=== PATIENT | female | born 1950 | race Caucasian/White ===

== ENCOUNTER 2017-04-09 12:23 | Inpatient (IN) | payer BC, MEDICARE ==
[2017-04-09] VITALS (12 sets, daily range): BP systolic 90–138; BP diastolic 41–63; PULSE 70–87; RESP 16–20; TEMP 97.2–98.3; O2SAT 95–100
[~2017-04-09] VITALS: Ht 165.1 cm; Wt 50.1 kg
[2017-04-09] MEDS: INSULIN ASPART SUPPLEMENTAL SCALE SQ SCH
[~2017-04-09 12:23] MED LIST: ALPR-138 PO; CO Q 10 PO; HERB LAX PO; LORT7.5T3 PO; OMEG1CAP53 PO; OYST500T77 PO; TAB-TAB PO
[2017-04-09] MEDS ORDERED: SODIUM CHLORIDE 0.9% FLUSH 10 ML FLUSH IVF PRN (12:45)
[2017-04-09] MEDS ORDERED: SODIUM CHLORID 0.9% 500 ML INJ 500 ML IV ONE (12:45)
--- NOTE | 2017-04-09 12:45 | PD ---
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 This is an intermittent episodic event was been happening over the past week. The patient did have a CAT scan of her head in November which was negative. The patient has been treating her tumor with holistic methods up until now. She 's never had any chemotherapy. She is coming by her daughter who states that during the episodic events the patient is alert and awake. Denies any fever denies any diarrhea. According to patient's daughter since been tolerating less by mouth recently and has lost 40 pounds over the past few months. 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) Neurologic: No Reproductive: No Respiratory: Yes (CANCER) ?: Not Tubal Ligation: Yes Past Surgical History Ear Surgery: Yes (RIGHT) Tonsillectomy: Yes Social History Alcohol Use: Yes (ONCE WEEK) Tobacco Use: Yes (1 PPD) Substance Use: No Allergies-Medications (Allergen,Severity, Reaction): Coded Allergies: Neomycin (Verified Allergy, Severe, SKIN BREAKDOWN, ITCHING, 04/09/17) Reported Meds & Prescriptions Reported Meds & Active Scripts Active Reported Temazepam 15 Mg Cap 15 Mg PO HS PRN Review of Systems Except as stated in HPI: all other systems reviewed are Neg Physical Exam Narrative GENERAL: [Well-developed, thin but in no obvious distress. SKIN: Focused skin assessment warm/dry. HEAD: Atraumatic. Normocephalic. EYES: Pupils equal and round. No scleral icterus. No injection or drainage. ENT: No nasal bleeding or discharge. Mucous membranes pink and moist. NECK: Trachea midline. No JVD. CARDIOVASCULAR: Regular rate and rhythm. No murmur appreciated. RESPIRATORY: No accessory muscle use. Clear to auscultation. Breath sounds equal bilaterally. GASTROINTESTINAL: Abdomen soft, non-tender, nondistended. Hepatic and splenic margins not palpable. MUSCULOSKELETAL: No obvious deformities. No clubbing. No cyanosis. No edema. NEUROLOGICAL: Awake and alert. Cranial nerves II through XII are grossly intact and nonfocal 5 out of 5 strength in all 4 extremities. Cerebellar testing negative. PSYCHIATRIC: Appropriate mood and affect; insight and judgment normal. Data Data Last Documented VS Vital Signs Date Time Temp Pulse Resp B/P Pulse Ox O2 Delivery O2 Flow Rate FiO2 04/09/17 13:03 96 Room Air 04/09/17 12:25 98.3 87 20 90/41 Orders Electrocardiogram (04/09/17 12:42) Ckmb (Isoenzyme) Profile (04/09/17 12:42) Complete Blood Count With Diff (04/09/17 12:42) Comprehensive Metabolic Panel (04/09/17 12:42) Magnesium (Mg) (04/09/17 12:42) Prothrombin Time / Inr (Pt) (04/09/17 12:42) Act Partial Throm Time (Ptt) (04/09/17 12:42) Troponin I (04/09/17 12:42) Ecg Monitoring (04/09/17 12:42) Iv Access Insert/Monitor (04/09/17 12:42) Oximetry (04/09/17 12:42) Oxygen Administration (04/09/17 12:42) Sodium Chloride 0.9% Flush (Ns Flush) (04/09/17 12:45) Sodium Chlorid 0.9% 500 Ml Inj (Ns 500 M (04/09/17 12:45) Chest, Pa & Lat (04/09/17 12:42) Ct Brain W/O Iv Contrast(Rout) (04/09/17 ) Phosphorus (Po4) (04/09/17 12:42) Ammonia (04/09/17 12:42) Resp Blood Gas Venous (04/09/17 ) Blood Gas Venous (Vbg) (04/09/17 12:50) Levetiracetam (Keppra) (04/09/17 13:30) Dexamethasone Inj (Decadron Inj) (04/09/17 13:30) Ct Thorax/ Chest W Iv Contrast (04/09/17 ) Consult Neurosurgery (04/09/17 ) Admit Order (Ed Use Only) (04/09/17 ) Labs Laboratory Tests Test 04/09/17 04/09/17 12:50 12:54 Blood Gas Puncture Site L AC Blood Gas Patient Temperature 37.0 Venous Blood pH 7.37 Venous Blood Partial Pressure 49 mmHg CO2 Venous Blood Partial Pressure 36 mmHg O2 Venous Blood HCO3 27 mmol/L Venous Blood Oxygen Saturation 62 % Venous Blood Oxygen Content 11.6 Vol % Venous Blood Base Excess 2.5 mmol/L Oxygen Delivery Device ROOM AIR Blood Gas Inspired Oxygen 21 % White Blood Count 4.6 TH/MM3 Red Blood Count 4.62 MIL/MM3 Hemoglobin 13.4 GM/DL Hematocrit 39.4 % Mean Corpuscular Volume 85.3 FL Mean Corpuscular Hemoglobin 28.9 PG Mean Corpuscular Hemoglobin 33.9 % Concent Red Cell Distribution Width 11.8 % Platelet Count 228 TH/MM3 Mean Platelet Volume 8.4 FL Neutrophils (%) (Auto) 63.0 % Lymphocytes (%) (Auto) 20.6 % Monocytes (%) (Auto) 9.0 % Eosinophils (%) (Auto) 6.4 % Basophils (%) (Auto) 1.0 % Neutrophils # (Auto) 3.0 TH/MM3 Lymphocytes # (Auto) 0.9 TH/MM3 Monocytes # (Auto) 0.4 TH/MM3 Eosinophils # (Auto) 0.3 TH/MM3 Basophils # (Auto) 0.0 TH/MM3 CBC Comment DIFF FINAL Differential Comment Prothrombin Time 10.7 SEC Prothromb Time International 1.0 RATIO Ratio Activated Partial 25.2 SEC Thromboplast Time Sodium Level 139 MEQ/L Potassium Level 4.3 MEQ/L Chloride Level 103 MEQ/L Carbon Dioxide Level 27.2 MEQ/L Anion Gap 9 MEQ/L Blood Urea Nitrogen 11 MG/DL Creatinine 0.66 MG/DL Estimat Glomerular Filtration 89 ML/MIN Rate Random Glucose 118 MG/DL Calcium Level 9.1 MG/DL Phosphorus Level 3.4 MG/DL Magnesium Level 1.8 MG/DL Total Bilirubin 0.4 MG/DL Aspartate Amino Transf 9 U/L (AST/SGOT) Alanine Aminotransferase 13 U/L (ALT/SGPT) Alkaline Phosphatase 68 U/L Ammonia 17 MCMOL/L Total Creatine Kinase 40 U/L Troponin I LESS THAN 0.02 NG/ML Total Protein 6.4 GM/DL Albumin 3.1 GM/DL [facility] Medical Decision Making Medical Screen Exam Complete: Yes Emergency Medical Condition: Yes Differential Diagnosis Brain lesion, electrolyte abnormality, hyponatremia, hypernatremia, hypokalemia , hyperkalemia, metastatic disease. Narrative Course Patient was roomed in the emergency department, high index suspicion for metastatic lesion into her head. CAT scan confirms: Last 24 hours Impressions Chest X-Ray 04/09/17 1242 Signed Impressions: Service Date/Time: Sunday, April 09, 2017 13:12 - CONCLUSION: Left upper lobe mass suspicious for malignancy with possible adenopathy within the mediastinum. Adair Ragland MD Head CT 04/09/17 0000 Signed Impressions: Service Date/Time: Sunday, April 09, 2017 13:08 - CONCLUSION: Right frontal lobe mass and MRI examination with and without contrast is recommended to further characterize. Adair Ragland MD Chest CT 04/09/17 0000 Signed Impressions: Service Date/Time: Sunday, April 09, 2017 14:59 - CONCLUSION: 1. There is a 4.1 x 6.9 x 5.2 cm mass in the medial aspect of the left upper lobe which abuts the upper mediastinum. There is extensive mediastinal, hilar and subcarinal adenopathy. Findings are highly suspicious for malignancy. The lesion would be readily amenable to CT-guided biopsy. Samuel Vásquez MD Abdomen/Pelvis CT 04/09/17 0000 Signed Impressions: Service Date/Time: Sunday, April 09, 2017 14:59 - CONCLUSION: 1. No findings to indicate metastatic disease to the abdomen or pelvis are identified. Samuel Vásquez MD Patient was discussed with Dr. Mendez given the findings of the possible subarachnoid hemorrhage and vasogenic edema the patient was given Decadron as well as Keppra. Had an extensive conversation with the family and the patient regarding her probable diagnosis of metastatic cancer and recommended that she be admitted to the hospital [place] [facility] [place] as well as oncology consultation. The patient is reluctant to treat other than holistic but she is willing to stay at least for the information/consultations. Patient was discussed with Dr. Stratton for ICU admission who is agreeable. He requests CAT scan of the chest and abdomen be ordered as well ordered, MRI orders have been placed, after discussion with Dr. Mendez. Diagnosis Primary Impression: Brain mass Additional Impressions: Brain edema Lung tumor Admitting Information Admitting Physician Requests: Admit Condition: Stable Joshua Diallo MD Apr 09, 2017 12:45
[2017-04-09 12:58] LABS: BLOOD GAS VENOUS BASE EXCESS 2.5 mmol/L (-2-2); BLOOD GAS VENOUS HCO3 27 mmol/L (22-26); BLOOD GAS VENOUS O2 CONTENT 11.6 Vol % (9.0-17.0); BLOOD GAS VENOUS O2 HGB SAT 62 % (70-76); BLOOD GAS VENOUS PCO2 49 mmHg (44-48); BLOOD GAS VENOUS PO2 36 mmHg (35-40); BLOOD GAS VENOUS pH 7.37 (7.360-7.400)
[2017-04-09 12:59] LABS: CRITICAL VALUE NO; DRAW SITE L AC; FIO2 21 %; OXYGEN DEVICE ROOM AIR; STAT YES
[2017-04-09] MEDS ORDERED: TEMA15CA PO (13:05)
[2017-04-09 13:06] LABS: EOSINOPHIL # 0.3 TH/MM3 (0-0.4); EOSINOPHIL % 6.4 % (0.0-4.0); HEMATOCRIT 39.4 % (35.0-46.0); HEMO FLAGS DIFF FINAL; LYMPH % 20.6 % (9.0-44.0); LYMPHOCYTE # 0.9 TH/MM3 (1.0-4.8); MEAN CELL VOLUME 85.3 FL (80.0-100.0); MEAN CORPUSCULAR HEMOGLOBIN 28.9 PG (27.0-34.0); MEAN CORPUSCULAR HGB CONC 33.9 % (32.0-36.0); PLATELET COUNT 228 TH/MM3 (150-450); RED BLOOD COUNT 4.62 MIL/MM3 (4.00-5.30); RED CELL DISTRIBUTION WIDTH 11.8 % (11.6-17.2); WHITE BLOOD COUNT 4.6 TH/MM3 (4.0-11.0)
[2017-04-09 13:08] LABS: CHLORIDE 103 MEQ/L (98-107); POTASSIUM 4.3 MEQ/L (3.5-5.1); SODIUM (NA) 139 MEQ/L (136-145)
[2017-04-09 13:12] LABS: ANION GAP 9 MEQ/L (5-15); BICARBONATE 27.2 MEQ/L (21.0-32.0); BLOOD UREA NITROGEN 11 MG/DL (7-18); MAGNESIUM 1.8 MG/DL (1.5-2.5)
[2017-04-09 13:13] LABS: APTT (PATIENT) 25.2 SEC (24.3-30.1); PROTHROMBIN TIME - PATIENT 10.7 SEC (9.8-11.6)
[2017-04-09 13:15] LABS: ALT (GPT) 13 U/L (10-53); AST (GOT) 9 U/L (15-37); GLOMERULAR FILTRATION RATE 89 ML/MIN (>89)
[2017-04-09 13:17] LABS: TOTAL BILIRUBIN ADULT 0.4 MG/DL (0.2-1.0)
[2017-04-09 13:18] LABS: ALKALINE PHOSPHATASE 68 U/L (45-117)
[2017-04-09 13:30] LABS: CREATINE KINASE 40 U/L (26-192)
[2017-04-09] MEDS ORDERED: DEXAMETHASONE SOD PHOS 20 MG/5 ML VIAL IV PUSH ONE (13:30)
[2017-04-09] MEDS ORDERED: levETIRAcetam 500 MG TAB PO ONE (13:30)
--- NOTE | 2017-04-09 13:44 | RADRPT ---
EXAM DATE/TIME: 04/09/2017 13:08 [facility] COMPARISON: No previous studies available for comparison. INDICATIONS : Altered mental status. RADIATION DOSE: 61.71 CTDIvol (mGy) MEDICAL HISTORY : None SURGICAL HISTORY : Tonsillectomy. Tubal ligation. ENCOUNTER: Initial ACUITY: 1 day PAIN SCALE: 0/10 LOCATION: cranial TECHNIQUE: Multiple contiguous axial images were obtained of the head. Using automated exposure control and adj ustment of the mA and/or kV according to patient size, radiation dose was kept as low as reasonably a chievable to obtain optimal diagnostic quality images. DICOM format image data is available electro nically for review and comparison. FINDINGS: There is an approximate 2 cm mass in right frontal lobe which is spontaneously dense towards the posterior aspect of it. This density may represent hemorrhage and there is surrounding vasogenic [place] suspicious for neoplastic process. There is no appreciable mass effect. There are no signs of acut e infarction. CONCLUSION: Right frontal lobe mass and MRI examination with and without contrast is recommended to nadya Ragland MD on April 09, 2017 at 13:41 Board Certified Radiologist. This report was verified electronically.
--- NOTE | 2017-04-09 13:45 | RADRPT ---
EXAM DATE/TIME: 04/09/2017 13:12 [facility] COMPARISON: No previous studies available for comparison. INDICATIONS : Short of breath and chest pain when inhaling. MEDICAL HISTORY : Left upper lung tumor SURGICAL HISTORY : None. ENCOUNTER: Initial ACUITY: 4 - 6 days PAIN SCORE: 2/10 LOCATION: Bilateral chest FINDINGS: There is a large approximately 6.2 cm left upper lobe mass which extends to the left hilum. There may be adenopathy in the AP window. There are atherosclerotic calcifications of the aorta due to chronic atherosclerotic disease. There are degenerative changes within the thoracic spine and the bony struc tures appear slightly osteopenic. CONCLUSION: Left upper lobe mass suspicious for malignancy with possible adenopathy within the mediastinum. Adair Ragland MD on April 09, 2017 at 13:43 Board Certified Radiologist. This report was verified electronically.
[2017-04-09] MEDS ORDERED: CHLORHEXIDINE GLUCONATE 2 % 1 PACK (2 CLOTHS) TOP PRN (14:45)
[2017-04-09] MEDS ORDERED: MISCELLANEOUS NURSING INFORMATION XX SCH (14:45)
[2017-04-09] MEDS ORDERED: ACETAMINOPHEN 325 MG TAB PO PRN (14:45)
[2017-04-09] MEDS ORDERED: SODIUM CHLORIDE 0.9% FLUSH 10 ML FLUSH IV FLUSH PRN (14:45)
[2017-04-09] MEDS ORDERED: BISACODYL 10 MG SUPP RECTAL PRN (15:00)
[2017-04-09] MEDS ORDERED: LACTULOSE SYRUP 20 GM/30 ML CUP PO PRN (15:00)
[2017-04-09] MEDS ORDERED: MAGNESIUM HYDROXIDE SUSP 30 ML CUP PO PRN (15:00)
[2017-04-09] MEDS ORDERED: SENNOSIDES 8.6 MG TAB PO PRN (15:00)
[2017-04-09] MEDS ORDERED: METOCLOPRAMIDE HCL 10 MG/2 ML VIAL IV PRN (15:00)
[2017-04-09] MEDS ORDERED: hydrALAZINE HCL 20 MG/ML VIAL IV PUSH PRN (15:00)
[2017-04-09] MEDS ORDERED: MORPHINE SULFATE 4 MG/ML INJ IV PRN (15:00)
[2017-04-09] MEDS ORDERED: ONDANSETRON HCL 4 MG/2 ML VIAL IV PRN (15:00)
[2017-04-09] MEDS ORDERED: oxyCODONE/ACETAMINOPHEN 5 MG/325 MG TAB PO PRN (15:00)
--- NOTE | 2017-04-09 15:32 | RADRPT ---
EXAM DATE/TIME: 04/09/2017 14:59 [facility] COMPARISON: CT BRAIN W/O CONTRAST, April 09, 2017, 13:08. INDICATIONS : Evaluate for metastatic disease; patient states known lung mass. IV CONTRAST: 100 cc IV ; Cumulative dose for multiple exams. RADIATION DOSE: The 6.42 CTDIvol (mGy) ; Combined studies - Thorax/Abdomen/Pelvis MEDICAL HISTORY : None SURGICAL HISTORY : Tubal ligation. Appendectomy. ENCOUNTER: Initial ACUITY: 1 day PAIN SCALE: 3/10 LOCATION: Bilateral chest TECHNIQUE: Volumetric scanning of the chest was performed. Using automated exposure control and adjustment of t he mA and/or kV according to patient size, radiation dose was kept as low as reasonably achievable to obtain optimal diagnostic quality images. DICOM format image data is available electronically for review and comparison. Follow-up recommendations for incidentally detected pulmonary nodules are based at a minimum on nodul e size and patient risk factors according to Fleischner Society Guidelines. FINDINGS: The examination demonstrates a 4.1 x 6.9 x 5.2 cm heterogeneous mass in the anterior aspect of the le ft upper lobe. This abuts the left side of the mediastinum. It abuts the pleural surface anteriorly. Findings are highly suspicious for malignancy. The examination also demonstrates extensive AP window, mediastinal, bilateral hilar and subcarinal adenopathy. The findings are highly suspicious for malig gladis. The heart is normal in size. There is no pleural effusion. The limited portions of upper abdomen visualized are unremarkable. The visualized osseous structures demonstrate degenerative changes but are otherwise intact. CONCLUSION: 1. There is a 4.1 x 6.9 x 5.2 cm mass in the medial aspect of the left upper lobe which abuts the upp er mediastinum. There is extensive mediastinal, hilar and subcarinal adenopathy. Findings are highly suspicious for malignancy. The lesion would be readily amenable to CT-guided biopsy. Samuel Vásquez MD on April 09, 2017 at 15:26 Board Certified Radiologist. This report was verified electronically.
--- NOTE | 2017-04-09 15:35 | RADRPT ---
EXAM DATE/TIME: 04/09/2017 14:59 [facility] COMPARISON: CT BRAIN W/O CONTRAST, April 09, 2017, 13:08. INDICATIONS : Evaluate for metastatic disease. IV CONTRAST: 100 cc Omnipaque 350 (iohexol) IV ; Cumulative dose for multiple exams. ORAL CONTRAST: No oral contrast ingested. RADIATION DOSE: 6.42 CTDIvol (mGy) ; Combined studies - Thorax/Abdomen/Pelvis MEDICAL HISTORY : None SURGICAL HISTORY : Tubal ligation. Appendectomy. ENCOUNTER: Initial ACUITY: 1 day PAIN SCALE: 3/10 LOCATION: Bilateral abdomen. TECHNIQUE: Volumetric scanning of the abdomen and pelvis was performed. Using automated exposure control and ad justment of the mA and/or kV according to patient size, radiation dose was kept as low as reasonably achievable to obtain optimal diagnostic quality images. DICOM format image data is available electro nically for review and comparison. FINDINGS: The appearance of the liver, spleen, pancreas, adrenal glands and kidneys is within normal limits. Th ere is no retroperitoneal lymphadenopathy. The abdominal aorta is normal in caliber. The visualized loops of small and large bowel in the upper abdomen are unremarkable. Imaging through the pelvis is provided. There is no significant adenopathy. No free fluid is seen. Th e reproductive organs are intact. Bone windowed imaging is provided. These demonstrate the visualized osseous structures to be intact. No destructive lesion is seen. CONCLUSION: 1. No findings to indicate metastatic disease to the abdomen or pelvis are identified. Samuel Vásquez MD on April 09, 2017 at 15:31 Board Certified Radiologist. This report was verified electronically.
[2017-04-09] MEDS ORDERED: IOHEXOL 350 MG/ML 10 ML VIAL (for RAD DIAG) IV ONE (15:57)
[2017-04-09] MEDS: SODIUM CHLOR 0.9% 1000 ML INJ 1,000 ML IV SCH ×2 (16:37→18:17)
[2017-04-09] MEDS: PANTOPRAZOLE SODIUM 40 MG VIAL IV SCH (16:37)
--- NOTE | 2017-04-09 17:02 | PD.ONC.PN ---
Objective Data Date Time Temp Pulse Resp B/P Pulse Ox O2 Delivery O2 Flow Rate FiO2 04/09/17 15:36 70 16 112/53 97 04/09/17 13:03 96 Room Air 04/09/17 13:03 96 Room Air 04/09/17 12:25 98.3 87 20 90/41 97 Result Diagram: 04/09/17 1254 04/09/17 1254 Laboratory Results Laboratory Tests Test 04/09/17 04/09/17 12:50 12:54 Blood Gas Puncture Site L AC Blood Gas Patient Temperature 37.0 Venous Blood pH 7.37 Venous Blood Partial Pressure 49 mmHg CO2 Venous Blood Partial Pressure 36 mmHg O2 Venous Blood HCO3 27 mmol/L Venous Blood Oxygen Saturation 62 % Venous Blood Oxygen Content 11.6 Vol % Venous Blood Base Excess 2.5 mmol/L Oxygen Delivery Device ROOM AIR Blood Gas Inspired Oxygen 21 % White Blood Count 4.6 TH/MM3 Red Blood Count 4.62 MIL/MM3 Hemoglobin 13.4 GM/DL Hematocrit 39.4 % Mean Corpuscular Volume 85.3 FL Mean Corpuscular Hemoglobin 28.9 PG Mean Corpuscular Hemoglobin 33.9 % Concent Red Cell Distribution Width 11.8 % Platelet Count 228 TH/MM3 Mean Platelet Volume 8.4 FL Neutrophils (%) (Auto) 63.0 % Lymphocytes (%) (Auto) 20.6 % Monocytes (%) (Auto) 9.0 % Eosinophils (%) (Auto) 6.4 % Basophils (%) (Auto) 1.0 % Neutrophils # (Auto) 3.0 TH/MM3 Lymphocytes # (Auto) 0.9 TH/MM3 Monocytes # (Auto) 0.4 TH/MM3 Eosinophils # (Auto) 0.3 TH/MM3 Basophils # (Auto) 0.0 TH/MM3 CBC Comment DIFF FINAL Differential Comment Prothrombin Time 10.7 SEC Prothromb Time International 1.0 RATIO Ratio Activated Partial 25.2 SEC Thromboplast Time Sodium Level 139 MEQ/L Potassium Level 4.3 MEQ/L Chloride Level 103 MEQ/L Carbon Dioxide Level 27.2 MEQ/L Anion Gap 9 MEQ/L Blood Urea Nitrogen 11 MG/DL Creatinine 0.66 MG/DL Estimat Glomerular Filtration 89 ML/MIN Rate Random Glucose 118 MG/DL Calcium Level 9.1 MG/DL Phosphorus Level 3.4 MG/DL Magnesium Level 1.8 MG/DL Total Bilirubin 0.4 MG/DL Aspartate Amino Transf 9 U/L (AST/SGOT) Alanine Aminotransferase 13 U/L (ALT/SGPT) Alkaline Phosphatase 68 U/L Ammonia 17 MCMOL/L Total Creatine Kinase 40 U/L Troponin I LESS THAN 0.02 NG/ML Total Protein 6.4 GM/DL Albumin 3.1 GM/DL Imaging Studies Last 24 hours Impressions Chest X-Ray 04/09/17 1242 Signed Impressions: Service Date/Time: Sunday, April 09, 2017 13:12 - CONCLUSION: Left upper lobe mass suspicious for malignancy with possible adenopathy within the mediastinum. Adair Ragland MD Head CT 04/09/17 0000 Signed Impressions: Service Date/Time: Sunday, April 09, 2017 13:08 - CONCLUSION: Right frontal lobe mass and MRI examination with and without contrast is recommended to further characterize. Adair Ragland MD Chest CT 04/09/17 0000 Signed Impressions: Service Date/Time: Sunday, April 09, 2017 14:59 - CONCLUSION: 1. There is a 4.1 x 6.9 x 5.2 cm mass in the medial aspect of the left upper lobe which abuts the upper mediastinum. There is extensive mediastinal, hilar and subcarinal adenopathy. Findings are highly suspicious for malignancy. The lesion would be readily amenable to CT-guided biopsy. Samuel Vásquez MD Abdomen/Pelvis CT 04/09/17 0000 Signed Impressions: Service Date/Time: Sunday, April 09, 2017 14:59 - CONCLUSION: 1. No findings to indicate metastatic disease to the abdomen or pelvis are identified. Samuel Vásquez MD Administered Medications Medications (Trade) Dose Ordered Sig/Michelle Route PRN Reason Start Time Stop Time Status Last Admin Dose Admin Sodium Chloride (NS 1000 ml Inj) 1,000 ml @ 84 mls/hr [id number] IV 04/09/17 14:34 04/09/17 16:37 Pantoprazole Sodium (Protonix Inj) 40 mg DAILY IV 04/09/17 15:00 04/09/17 16:37 Get Hanson MD Apr 09, 2017 17:02
--- NOTE | 2017-04-09 18:06 | HHI.HP ---
HPI Service Critical Care Medicine Primary Care Physician Maria De Jesus Saavedra M.D. Admission Diagnosis Altered mental status, Seizure like activity, Brain Edema Diagnosis: Chief Complaint: right upper extremity tremors Travel History International Travel<30 Days: No Contact w/Intl Traveler <30 Da: No Traveled to Known Affected Are: No History of Present Illness HPI Patient 66-year-old female with a history of left-sided chest tumor apparently for the past 3 years presents emergency department for evaluation of altered mental status right upper extremity tremors preference for right-sided gaze as well as shaking all over. This is an intermittent episodic event was been happening over the past week. Patient states she had biopsy of the lymph nodes done in November 2015 for her lung mass and was found to have non-small cell lung cancer the reports of which she has at home. The patient did have a CAT scan of her head in November which was negative. The patient has been treating her tumor with holistic methods up until now. She 's never had any chemotherapy. She is coming by her daughter who states that during the episodic events the patient is alert and awake. Denies any fever denies any diarrhea. According to patient's daughter since been tolerating less by mouth recently and has lost 40 pounds over the past few months. Patient was evaluated in the ER at [place], head CT there revealed left frontal mass with vasogenic edema. A chest x-ray revealed left upper lobe lung mass as well as suspicious for malignancy. Patient received Decadron 10 mg IV, neurosurgery was contacted and requested transfer to the main hospital. Patient was accepted for admission by critical care medicine service. I ordered a CT chest with IV contrast prior to her transfer with plans of getting an MRI brain following her arrival. When I evaluated the patient she was laying in bed in no acute distress. History was obtained by reviewing records, discussion with patient as well as ER physician and nursing staff. 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) Neurologic: No Reproductive: No Respiratory: Yes (CANCER) ?: Not Tubal Ligation: Yes Past Surgical History Ear Surgery: Yes (RIGHT) Tonsillectomy: Yes Social History Alcohol Use: Yes (ONCE WEEK) Tobacco Use: Yes (1 PPD) Substance Use: No Allergies-Medications Allergies-Medications (Allergen,Severity, Reaction): Coded Allergies: Neomycin (Verified Allergy, Severe, SKIN BREAKDOWN, ITCHING, 04/09/17) Reported Meds & Prescriptions Reported Meds & Active Scripts Active Reported Temazepam 15 Mg Cap 15 Mg PO HS PRN ROS Review of Systems Except as stated in HPI: all other systems reviewed are Neg Physical Exam Physical Exam Narrative GENERAL: Well-developed, thin but in no obvious distress. SKIN: warm/dry. HEAD: Atraumatic. Normocephalic. EYES: Pupils equal and round. No scleral icterus. No injection or drainage. ENT: No nasal bleeding or discharge. Mucous membranes pink and moist. NECK: Trachea midline. No JVD. CARDIOVASCULAR: Regular rate and rhythm. No murmur appreciated. RESPIRATORY: No accessory muscle use. Clear to auscultation. Breath sounds equal bilaterally. GASTROINTESTINAL: Abdomen soft, non-tender, nondistended. Hepatic and splenic margins not palpable. MUSCULOSKELETAL: No obvious deformities. No clubbing. No cyanosis. No edema. NEUROLOGICAL: Awake and alert. Cranial nerves II through XII are grossly intact and nonfocal 5 out of 5 strength in all 4 extremities. Cerebellar testing negative. PSYCHIATRIC: Appropriate mood and affect; insight and judgment normal. Physical Exam Vital Signs Vital Signs Date Time Temp Pulse Resp B/P Pulse Ox O2 Delivery O2 Flow Rate FiO2 04/09/17 16:50 74 15 138/53 98 04/09/17 15:36 70 16 112/53 97 04/09/17 13:03 96 Room Air 04/09/17 13:03 96 Room Air 04/09/17 12:25 98.3 87 20 90/41 97 Laboratory Laboratory Tests Test 04/09/17 04/09/17 12:50 12:54 Blood Gas Puncture Site L AC Blood Gas Patient Temperature 37.0 Venous Blood pH 7.37 Venous Blood Partial Pressure 49 CO2 Venous Blood Partial Pressure 36 O2 Venous Blood HCO3 27 Venous Blood Oxygen Saturation 62 Venous Blood Oxygen Content 11.6 Venous Blood Base Excess 2.5 Oxygen Delivery Device ROOM AIR Blood Gas Inspired Oxygen 21 White Blood Count 4.6 Red Blood Count 4.62 Hemoglobin 13.4 Hematocrit 39.4 Mean Corpuscular Volume 85.3 Mean Corpuscular Hemoglobin 28.9 Mean Corpuscular Hemoglobin 33.9 Concent Red Cell Distribution Width 11.8 Platelet Count 228 Mean Platelet Volume 8.4 Neutrophils (%) (Auto) 63.0 Lymphocytes (%) (Auto) 20.6 Monocytes (%) (Auto) 9.0 Eosinophils (%) (Auto) 6.4 Basophils (%) (Auto) 1.0 Neutrophils # (Auto) 3.0 Lymphocytes # (Auto) 0.9 Monocytes # (Auto) 0.4 Eosinophils # (Auto) 0.3 Basophils # (Auto) 0.0 CBC Comment DIFF FINAL Differential Comment Prothrombin Time 10.7 Prothromb Time International 1.0 Ratio Activated Partial 25.2 Thromboplast Time Sodium Level 139 Potassium Level 4.3 Chloride Level 103 Carbon Dioxide Level 27.2 Anion Gap 9 Blood Urea Nitrogen 11 Creatinine 0.66 Estimat Glomerular Filtration 89 Rate Random Glucose 118 Calcium Level 9.1 Phosphorus Level 3.4 Magnesium Level 1.8 Total Bilirubin 0.4 Aspartate Amino Transf 9 (AST/SGOT) Alanine Aminotransferase 13 (ALT/SGPT) Alkaline Phosphatase 68 Ammonia 17 Total Creatine Kinase 40 Troponin I LESS THAN 0.02 Total Protein 6.4 Albumin 3.1 Result Diagram: 04/09/17 1254 04/09/17 1254 Assessment and Plan Assessment and Plan 66 year-old female with: Right frontal lobe mass with vasogenic edema Left upper lobe lung cancer Plan: Neuro: Continue Decadron, Keppra. Neurosurgery consulted and d/w Dr. Mendez who will be evaluating patient. Awaiting MRI brain. Cardiovascular: IV hydration, watch for hypotension. Pulmonary: Supplemental O2 as needed. Pulmonary consult requested for lung cancer GI/liver: Advance by mouth as tolerated. Renal/: IV hydration, monitor and replete elect lites, follow BUN/creatinine. ID: No indication for antibiotics at this time. Endocrine: SSI for glycemic control if needed. Heme: Follow CBC. Oncology consulted to assist with management for lung cancer with probable metastatic disease to brain. Prophylaxis: PPI/SCDs. Subcutaneous heparin held in view of intracerebral mass. I have asked patient to contact her to get her reports regarding lung cancer workup done at [facility] including biopsy reports. Discussed with Dr. Mendez Patient is awake and alert at this time. We will consult hospitalist for further medical management starting tomorrow. Breezy Biswas MD Apr 09, 2017 18:06
[2017-04-09] MEDS: DEXAMETHASONE SOD PHOS 4 MG/ML VIAL IV PUSH SCH (18:22)
[2017-04-09] MEDS ORDERED: GLUCAGON 1 MG/ML VIAL IM/SQ PRN (18:45)
[2017-04-09] MEDS ORDERED: DEXTROSE 50% IN WATER 50 ML VIAL(D50) IV PRN (18:45)
[2017-04-09] MEDS: SODIUM CHLORIDE 0.9% FLUSH 10 ML FLUSH IV FLUSH SCH (19:57)
[2017-04-09] MEDS ORDERED: ZOLPIDEM TARTRATE 5 MG TAB PO PRN (21:00)
[2017-04-09] MEDS: DOCUSATE SODIUM 50 MG/SENNA 8.6 MG TAB PO SCH (21:00)
[2017-04-09] MEDS: levETIRAcetam INJ 500 MG in SODIUM CHLORIDE 0.9% INJ 100 ML IV SCH (21:05)
[2017-04-09] MEDS ORDERED: GADODIAMIDE PF 287 MG/ML 5 ML VIAL (for RAD MRI) IV ONE (22:56)
--- NOTE | 2017-04-09 23:18 | RADRPT ---
EXAM DATE/TIME: 04/09/2017 22:11 [facility] COMPARISON: CT BRAIN W/O CONTRAST, April 09, 2017, 13:08. INDICATIONS : Mass. CONTRAST: 9 cc Omniscan (gadodiamide) IV MEDICAL HISTORY : Carcinoma, lung. SURGICAL HISTORY : Appendectomy. Tonsillectomy. Right knee. Ear. ENCOUNTER: Subsequent ACUITY: 1 week PAIN SCORE: 0/10 LOCATION: cranial TECHNIQUE: Multiplanar, multisequence MRI of the brain was performed both prior to and following the administrat ion of paramagnetic contrast. FINDINGS: No evidence for acute infarction on diffusion weighted imaging. In the right frontal lobe superiorly a mass is identified with marked surrounding vasogenic edema and a hematocrit level suspected with bl ooming artifact on gradient echo images. It measures 2.1 x 1.9 cm in AP and transverse dimension on a xial T2 image 20. There is peripheral enhancement of this lesion. Also noted is a similar but smaller lesion with fluid fluid level adjacent to this on image 18 in the right frontal region with mild per ipheral enhancement measuring 6.8 x 5.9 mm on axial image 131 of series 14. There is surrounding sandie a. In the left post central region a similar lesion with a small amount of surrounding edema is noted measuring 6.6 mm in maximal transverse dimension on axial image 18 of series 10. There is mild perip heral enhancement. There is patchy periventricular white matter disease and remote lacunar infarcts i n the basal ganglia. There are secretions in the bilateral mastoid air cells. No additional areas of abnormal enhancement are identified. CONCLUSION: 1. There are 3 rim-enhancing masses identified peripheral enhancement, 2 of which demonstrate hematoc rit levels. Metastatic disease would be the leading consideration. 2. Patchy white matter disease most likely on the basis of chronic microvascular ischemic disease. 3. Mastoid fluid bilaterally. Khang Segal MD on April 09, 2017 at 23:11 Board Certified Radiologist. This report was verified electronically.
[2017-04-10] VITALS (14 sets, daily range): BP systolic 92–130; BP diastolic 48–58; PULSE 63–86; RESP 16–30; TEMP 97.3–98.1; O2SAT 93–98
[2017-04-10] MEDS: DEXAMETHASONE SOD PHOS 4 MG/ML VIAL IV PUSH SCH ×2 (00:17→06:00)
[2017-04-10] MEDS: TEMAZEPAM 15 MG CAP PO PRN (00:42)
[2017-04-10] MEDS: CHLORHEXIDINE GLUCONATE 2 % 1 PACK (2 CLOTHS) TOP SCH (03:22)
[2017-04-10] MEDS: INSULIN ASPART SUPPLEMENTAL SCALE SQ SCH ×4 (06:26→20:19)
[2017-04-10 08:41] LABS: AUTOMATED NEUTROPHIL # 4.6 TH/MM3 (1.8-7.7); BASOPHIL % 0.3 % (0.0-2.0); EOSINOPHIL % 0.1 % (0.0-4.0); HEMATOCRIT 41.5 % (35.0-46.0); HEMO FLAGS DIFF FINAL; LYMPH % 10.3 % (9.0-44.0); LYMPHOCYTE # 0.5 TH/MM3 (1.0-4.8); MEAN CORPUSCULAR HEMOGLOBIN 29.7 PG (27.0-34.0); MEAN CORPUSCULAR HGB CONC 34.6 % (32.0-36.0); MONO % 2.1 % (0.0-8.0); NEUT % 87.2 % (16.0-70.0); PLATELET COUNT 243 TH/MM3 (150-450); RED BLOOD COUNT 4.82 MIL/MM3 (4.00-5.30); RED CELL DISTRIBUTION WIDTH 12.7 % (11.6-17.2); WHITE BLOOD COUNT 5.3 TH/MM3 (4.0-11.0)
[2017-04-10 08:59] LABS: ANION GAP 7 MEQ/L (5-15); BICARBONATE 26.2 MEQ/L (21.0-32.0); BLOOD UREA NITROGEN 14 MG/DL (7-18); CHLORIDE 106 MEQ/L (98-107); GLOMERULAR FILTRATION RATE 88 ML/MIN (>89); POTASSIUM 3.7 MEQ/L (3.5-5.1); SODIUM (NA) 139 MEQ/L (136-145)
[2017-04-10 09:00] LABS: ALT (GPT) 14 U/L (10-53); AST (GOT) 12 U/L (15-37)
[2017-04-10] MEDS: PANTOPRAZOLE SODIUM 40 MG VIAL IV SCH ×2 (09:00→09:55)
[2017-04-10 09:02] LABS: ALKALINE PHOSPHATASE 70 U/L (45-117); TOTAL BILIRUBIN ADULT 0.3 MG/DL (0.2-1.0)
[2017-04-10] MEDS: SODIUM CHLORIDE 0.9% FLUSH 10 ML FLUSH IV FLUSH SCH ×2 (09:55→20:20)
[2017-04-10] MEDS: DOCUSATE SODIUM 50 MG/SENNA 8.6 MG TAB PO SCH ×2 (09:55→20:20)
[2017-04-10] MEDS: levETIRAcetam INJ 500 MG in SODIUM CHLORIDE 0.9% INJ 100 ML IV SCH (09:55)
--- NOTE | 2017-04-10 10:31 | HHI.PR ---
Subjective Remarks Follow-up lung mass, brain mass. Patient has no complaints at this time. Denies headache, vision change, dyspnea, chest pain. Reports mild nonproductive cough intermittently. Objective Vitals Vital Signs Date Time Temp Pulse Resp B/P Pulse Ox O2 Delivery O2 Flow Rate FiO2 04/10/17 10:00 86 04/10/17 08:00 70 04/10/17 08:00 97.6 70 30 92/55 95 04/10/17 07:01 98 04/10/17 07:00 93 Room Air 04/10/17 07:00 70 04/10/17 06:00 70 04/10/17 04:00 97.4 70 16 110/56 93 04/10/17 04:00 72 04/10/17 00:00 97.7 78 16 101/48 94 04/10/17 00:00 74 04/09/17 23:00 70 04/09/17 22:00 80 04/09/17 20:55 96 21 04/09/17 20:00 72 04/09/17 20:00 98.1 70 16 113/54 98 04/09/17 19:00 Room Air 04/09/17 18:00 74 04/09/17 16:50 74 15 138/53 98 04/09/17 16:30 71 04/09/17 16:00 71 04/09/17 16:00 97.2 72 16 124/63 100 04/09/17 15:36 70 16 112/53 97 04/09/17 13:03 96 Room Air 04/09/17 13:03 96 Room Air 04/09/17 12:50 95 21 04/09/17 12:25 98.3 87 20 90/41 97 I/O 04/09/17 04/09/17 04/09/17 04/10/17 04/10/17 04/10/17 06:59 14:59 22:59 06:59 14:59 22:59 Intake Total 864 ml 848 ml Balance 864 ml 848 ml Intake Oral 360 ml 360 ml IV Total 504 ml 488 ml # Voids 2 2 # Bowel Movements 0 0 Result Diagram: 04/10/17 0809 04/10/17 0809 Imaging Last Impressions Chest X-Ray 04/09/17 1242 Signed Impressions: Service Date/Time: Sunday, April 09, 2017 13:12 - CONCLUSION: Left upper lobe mass suspicious for malignancy with possible adenopathy within the mediastinum. Adair Ragland MD Head CT 04/09/17 Signed Impressions: Service Date/Time: Sunday, April 09, 2017 13:08 - CONCLUSION: Right frontal lobe mass and MRI examination with and without contrast is recommended to further characterize. Adair Ragland MD Chest CT 04/09/17 Signed Impressions: Service Date/Time: Sunday, April 09, 2017 14:59 - CONCLUSION: 1. There is a 4.1 x 6.9 x 5.2 cm mass in the medial aspect of the left upper lobe which abuts the upper mediastinum. There is extensive mediastinal, hilar and subcarinal adenopathy. Findings are highly suspicious for malignancy. The lesion would be readily amenable to CT-guided biopsy. Samuel Vásquez MD Brain MRI 04/09/17 Signed Impressions: Service Date/Time: Sunday, April 09, 2017 22:11 - CONCLUSION: 1. There are 3 rim-enhancing masses identified peripheral enhancement, 2 of which demonstrate hematocrit levels. Metastatic disease would be the leading consideration. 2. Patchy white matter disease most likely on the basis of chronic microvascular ischemic disease. 3. Mastoid fluid bilaterally. Khang Segal MD Abdomen/Pelvis CT 04/09/17 Signed Impressions: Service Date/Time: Sunday, April 09, 2017 14:59 - CONCLUSION: 1. No findings to indicate metastatic disease to the abdomen or pelvis are identified. Samuel Vásquez MD Objective Remarks General: Thin female in no acute distress. Heart: Regular rate and rhythm. No murmur. Lungs: Clear to auscultation bilaterally. No wheezes, rales, or rhonchi. Breathing is nonlabored. Abdomen: Soft, nontender, nondistended. Extremities: No lower extremity edema. Psych: Alert and oriented. Procedures None Urinary Catheter: No Vascular Central Line Catheter: No A/P Problem List: (1) Lung tumor ICD Code: D49.1 Status: Acute (2) Brain mass ICD Code: G93.9 Status: Acute Assessment and Plan 1. Right frontal lobe mass: Multiple masses seen on MRI. Appreciate neurosurgery recommendations. 2. Lung cancer, left upper lobe: Oncology consultation is pending. Pulmonology consultation pending. 3. DVT prophylaxis: SCDs. 4. GI prophylaxis: PPI. Transfer to medical/surgical floor. Discussed with Dr. Mendez. Pan Ocampo MD Apr 10, 2017 10:31
--- NOTE | 2017-04-10 10:37 | EKG ---
Date Performed: 04/09/2017 Time Performed: 12:58:57 PTAGE: 66 years EKG: Sinus rhythm POSSIBLE RIGHT VENTRICULAR CONDUCTION DELAY BORDERLINE ECG PREVIOUS TRACING : 12/20/2007 15.08 DOCTOR: Kelby Bland Interpretating Date/Time 04/10/2017 10:35:39
[2017-04-10] MEDS: DEXAMETHASONE 4 MG TAB PO SCH ×3 (12:59→23:14)
--- NOTE | 2017-04-10 14:53 | MB ---
cc: STEPHANIE YOUNG ROHIT K. M.D. LEE, LESLIE M. M.D. DATE OF CONSULTATION: 04/10/2017. REASON FOR CONSULTATION: Brain masses. HISTORY OF PRESENT ILLNESS: This is a 66-year-old right-handed female who presented to the emergency room in [place] last evening with complaints of confusion and head shaking. She also relates for the past month or so she has been running into objects on the left side with some unsteadiness as noted by her daughter. Over the last several days, she has had transient head spasms and shaking. A week ago she also had some transient spasms and contractions in the right hand and arm. CT scan of the head was obtained, which revealed a right frontal lobe mass with surrounding edema. She was started on Keppra and also Decadron, and since then she is feeling much better and her mentation has cleared up also per her family. Subsequent workup included an MRI scan of the brain which reveals right posterior frontal medial 2.4 cm partially enhancing mass with surrounding vasogenic edema. There is also a smaller mass adjacent to this less than a centimeter and a left frontoparietal lobe less than centimeter mass also with some enhancement and edema. Overall three brain masses are noted. CT scan of the chest reveals an approximately 7 cm x 5 cm mass in the left upper lobe along with extensive adenopathy. She was diagnosed with [id number] lung cancer a year and a half ago but elected on nonconventional treatment and did not seek chemotherapy or radiation treatment. She says she sought medical care with an oncologist at [facility] as well as in [place]. PAST MEDICAL HISTORY: 1. Diw-rnbme-[id number] lung cancer diagnosed a year and a half ago. 2. Depression. 3. Tubal ligation. 4. Disc protrusions in the neck. 5. Tonsillectomy. MEDICATIONS: 1. Temazepam 50 milligrams at bedtime PRN. ALLERGIES: NEOMYCIN. SOCIAL HISTORY: She is and her and daughter are here with her. She drinks alcohol on an occasional basis. She smokes a pack of cigarettes a day. REVIEW OF SYSTEMS: She denies any headache or nausea or vomiting or double vision or blurred vision. No chest pain or shortness of breath. No abdominal pain. No hemoptysis. No incontinence. She has had unsteadiness for the past month or so with running into objects on the left side. She had one episode a week ago of transient arm stiffness and contraction that lasted three days. Short episodes every day of head spasms and twitching. No history of easy bleeding or bruising. No fevers or chills. LABORATORY FINDINGS: White blood cell count 5.3, hemoglobin 14.3, platelet count 243,000. PT 10.7, INR 1.0, PTT 25.2. Sodium 139, potassium 3.7, BUN 14, creatinine 0.67, glucose is 135. EXAMINATION: VITAL SIGNS: Temperature 97.4, pulse is 70, respiratory rate 16, blood pressure 110/56, oxygen saturation 93% on room air. HEAD: Normocephalic, atraumatic. NECK: Neck is supple. CHEST: Clear bilaterally. HEART: Regular rate and rhythm, normal S1-S2. ABDOMEN: Abdomen soft and nontender. Positive bowel sounds. EXTREMITIES: No cyanosis or edema. NEUROLOGICAL EXAMINATION: She is awake, alert. Pupils equal are equal and reactive. Extraocular muscles intact. Face is symmetric. Tongue is midline. Visual marinao are full. Motor strength in the upper and lower extremities is 5/5. Positive Babinski bilaterally. Light touch sensation intact. Speech is fluent. IMPRESSION: 1. Multiple brain masses, the largest one approximately 2.4 cm in the posterior frontal and medial aspect with surrounding edema. There are smaller sub-centimeter lesions in the right frontal and left parietal areas also noted. These findings are very consistent with a metastasis given her history of non-small cell lung cancer. 2. History of left upper lobe large lung mass, non-small cell lung cancer diagnosed a year and a half ago and did not follow through with any conventional radiation of chemotherapy. 3. Possible focal seizures related to the brain masses. PLAN: 1. The patient will be continued on a Decadron for the cerebral edema and Keppra for seizure prophylaxis. 2. Sequential compressive devices will be used for DVT prophylaxis along with the Protonix for gastrointestinal stress ulcer prophylaxis. 3. Her diet and activity status can be increased as tolerated. 4. Regarding the brain masses, we discussed the option of stereotactic radiosurgery as well as whole brain radiation therapy. The more aggressive option of surgical resection of the larger brain mass with subsequent radiation therapy to the other masses and the resection bed will also discussed per the family and daughter's request. She is also encouraged to discuss her options with her oncologist who has been consulted. They had multiple questions, which were all answered to their satisfaction. MD BRENDA Prasad/PAKO /10:29 AM /2:42 PM
--- NOTE | 2017-04-10 16:46 | MB ---
cc: XU MCNAIR M.D. Corrected Copy: 04/13/17 DATE OF CONSULTATION: 04/10/2017. REASON FOR CONSULTATION: Lung cancer with brain metastasis. HISTORY OF PRESENT ILLNESS: Mrs. Roche is 66 years of age. She has a left upper lobe lung mass and was diagnosed with [id number] lung cancer about a year and a half ago with non-conventional therapy. The patient presented today at the [facility] with confusion and shakiness and question of seizure activity. CT of the brain revealed multiple lung masses suggestive of metastatic disease. CT scan of the chest revealed a left upper lobe lung mass 7x5 cm with extensive adenopathy. The patient was given Decadron with significant improvement and she was started on Keppra for possible seizure activity. She is alert and oriented and has no shortness of breath, fever, chills, cough, expectoration. PHYSICAL EXAMINATION: GENERAL: On exam, the patient is alert. VITAL SIGNS: Temperature 98, pulse 70, respirations 18, blood pressure 130/60, oxygen saturation 97% on room air. HEAD, EYES, EARS, NOSE, THROAT: Unremarkable. Eyes without icterus. NECK: Without adenopathy, thyroid enlargement, central trachea. CHEST: No dullness to percussion. Clear to auscultation. CARDIAC: PMI not appreciated. S1-S2 audible. No murmur, no rub. ABDOMEN: Lax. Bowel sounds audible. EXTREMITIES: No clubbing, cyanosis or edema. LABORATORY DATA: White count 5.3, hemoglobin 14, hematocrit 41, platelets at 243,000. ABG: pH 7.37, pCO2 49, pO2 136 on room air; upon presentation, 714. Sodium 139, potassium 3.7, BUN 14, creatinine 0.6. INR 1.0. IMPRESSION: 1. Metastatic lung cancer to brain as discussed above. 2. Altered mental status. PLAN: 1. The patient will be given oxygen therapy as needed. 2. Bronchodilators as needed as she is in no respiratory distress at present. 3. Will check baseline pulmonary function. 4. Her prognosis is obviously poor with her underlying metastatic disease. I do thank you for asking me to partake in Mrs. Roche's care. Xu Mcnair MD WWW/PAKO /4:11 PM /9:52 AM
--- NOTE | 2017-04-10 18:53 | MB ---
cc: STEPHANIE YOUNG MD DATE OF CONSULTATION 04/10/17 DATE OF 1950. REASON FOR CONSULTATION Patient with history of sls-ocaom-qrpy lung cancer who presents with altered mental status changes and was found to have a brain mass. HISTORY OF PRESENT ILLNESS This is a 66-year-old female who has a history of xba-dycaw-dvrm lung cancer which was diagnosed via biopsy of the lymph nodes in November of 2015. This was found to be odx-itfzb-zmsr lung cancer. We do not have a copy of the pathology report at this time. She presented to the emergency department with altered sensorium with waxing and waning alertness. She has also been experiencing weight loss over the past several months and she has lost 40 pounds. She was brought to the [place] emergency room. CT scan of the brain was obtained which showed a 2 cm mass in the right frontal lobe which was dense towards the posterior aspect. There was surrounding vasogenic edema. She subsequently had MRI of the brain and this revealed right frontal lobe mass with significant vasogenic edema with blooming artifact. The size of the mass was 2.81 x 1.9 cm. There was also peripheral enhancement of this lesion. There was also a smaller lesion adjacent to this with mild peripheral enhancement of 6.8 x 5.9 mm. There was surrounding vasogenic edema. In the left posterior region, another lesion was also seen with small vasogenic edema and this was quite small. This is highly suspicious for metastatic cancer. She has had a CT of the chest which shows a 4.1 x 6.9 x 5.2 cm mass in the anterior aspect of the left upper lobe. This abuts the left side of the mediastinum. There is extensive AP window mediastinal bilateral hilar and subcarinal adenopathy. A CT of the abdomen and pelvis with IV contrast was also obtained. This showed a normal-appearing liver, spleen, pancreas, adrenal glands and kidneys and there was no evidence of any metastatic disease. I have been consulted to make further recommendations. The patient has been evaluated by neurosurgery and pulmonology. REVIEW OF SYSTEMS A comprehensive 14-point review of systems was completed which was negative except as described in the HPI. PAST MEDICAL HISTORY 1. Hko-uthax-zeth lung cancer, 2. COPD, 3. History of herniated neck disk PAST SURGICAL HISTORY 1. Ear surgery 2. Tonsillectomy SOCIAL HISTORY History of more than 30 pack-years of alcohol abuse. No Substance abuse. FAMILY HISTORY Reviewed and noncontributory to this admission. MEDICATIONS 1. Keppra 500 mg p.o. q.12 h, 2. Dexamethasone 4 mg p.o. q.6 h, 3. Temazepam 30 mg p.o. q.h.s. p.r.n. 4. Chandni-Colace 1 tablet p.o. b.i.d. 5. Sliding scale insulin, 6. Percocet 5/325 1 tablet p.o. q.4 h p.r.n. 7. Morphine sulfate 2 mg IV q. 2 h p.r.n. 8. Pantoprazole 40 mg IV daily 9. Zofran 4 mg IV q.6 h p.r.n., 10. Reglan 10 mg IV q.6 h p.r.n. 11. Senna 17.2 mg p.o. q.12 h p.r.n. 12. Dulcolax 10 mg rectally 13. Lactulose 30 mL p.o. daily p.r.n. 14. Hydralazine 20 mg IV q. 4 h p.r.n. ALLERGIES NEOMYCIN PHYSICAL EXAMINATION VITAL SIGNS: Blood pressure is 130/58, pulse is in the 60s, temperature is 98.1, O2 sats are 97% on room air. GENERAL: No apparent distress. HEENT: Pupils are equal, round, reactive to light. EOMI. No oral lesion. NECK: Supple. No JVD, no bruits. CHEST: Bilateral scattered rhonchi. CARDIAC: S1-S2 regular rate and rhythm. ABDOMEN: Soft, nontender, nondistended. Bowel sounds are present. EXTREMITIES: Without any edema, erythema or cyanosis. SKIN: Without any petechiae lesion or bruises. NEUROLOGIC: No focal deficits. PSYCHIATRIC: Mood and affect are appropriate. LABORATORY DATA WBC 5.3, hemoglobin 14.3, platelet count is 243. Serum chemistries show sodium 139, potassium 3.7, CO2 26.2 anion gap seven, BUN 14, creatinine 0.67, total bilirubin 0.3, AST is 12, ALT 14, total protein 6.5, albumin is 3.2. IMAGING STUDIES Imaging was reviewed in the EMR and discussed in the HPI above. ASSESSMENT/PLAN This is a 66-year-old female with a history of dns-piqgp-xtny lung cancer who opted not to pursue any treatment upon diagnosis. She now presents with altered mental status and 40 pound weight loss. 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 1. Multiple brain lesions. I have reviewed the MRI. There is a large frontal lobe lesion which is 2.1 x 1.9 cm. I had discussed this case yesterday with Dr. Biswas. The patient was started on IV Decadron and Keppra. I had a long discussion with the patient and I explained to them this is likely metastatic disease from primary lung cancer. I have discussed more aggressive approach of resection of the brain mass to debulk the disease followed by XRT. She is leaning towards not undergoing resection. If she opts for less aggressive therapy, then radiation can be considered. I will discuss this case with radiation oncology whether upfront stereotactic radiation would be beneficial for this large frontal lobe mass. If craniotomy and debulking is undertaken then this will also provide the tissue to make a diagnosis and to determine EGFR, ALK fusion, ROS 1 and PDL 1 status of the tumor, to help us guide towards molecularly directed therapy. 2. History of pyb-folsa-dvjz lung cancer. We will need to obtain her original pathology report. If she opts not to pursue craniotomy and debulking surgery, then we will need a biopsy of the chest mass so we can obtain tissue to do molecular studies as stated above. She will need port placement for systemic chemotherapy which would be given outpatient. Depending on the results of the molecular markers, Immunotherapy/molecular directed therapy can be considered. Thank you for allowing me to participate in the care of this patient. I will continue to follow this patient along. MD DANTE Preston/ /6:06 PM /6:22 PM RYLAN
[2017-04-10] MEDS: levETIRAcetam 500 MG TAB PO SCH (20:20)
[2017-04-11] VITALS (12 sets, daily range): BP systolic 97–131; BP diastolic 49–63; PULSE 57–86; RESP 13–29; TEMP 97.2–98; O2SAT 93–99
[2017-04-11] MEDS: CHLORHEXIDINE GLUCONATE 2 % 1 PACK (2 CLOTHS) TOP SCH (03:15)
[2017-04-11] MEDS: TEMAZEPAM 15 MG CAP PO PRN (03:15)
[2017-04-11] MEDS: DEXAMETHASONE 4 MG TAB PO SCH ×3 (06:22→17:49)
[2017-04-11] MEDS: INSULIN ASPART SUPPLEMENTAL SCALE SQ SCH ×4 (06:27→20:11)
[2017-04-11] MEDS: levETIRAcetam 500 MG TAB PO SCH ×2 (08:52→20:18)
[2017-04-11] MEDS: PANTOPRAZOLE SODIUM 40 MG VIAL IV SCH (08:52)
[2017-04-11] MEDS: DOCUSATE SODIUM 50 MG/SENNA 8.6 MG TAB PO SCH ×2 (08:53→20:11)
--- NOTE | 2017-04-11 08:59 | HHI.PR ---
Subjective Remarks Follow up brain mass, lung cancer. The patient states that she feels very tired today. Denies headache, vision changes, numbness/tingling/weakness of her extremities. No chest pain, dyspnea, nausea, vomiting. Objective Vitals Vital Signs Date Time Temp Pulse Resp B/P Pulse Ox O2 Delivery O2 Flow Rate FiO2 04/11/17 07:00 57 04/11/17 07:00 97 Room Air 21 04/11/17 04:00 97.7 58 29 97/49 93 04/11/17 03:00 62 04/11/17 00:00 97.8 66 26 114/57 98 04/10/17 23:00 63 04/10/17 20:00 97.7 73 22 113/53 94 04/10/17 20:00 73 04/10/17 19:00 95 Room Air 04/10/17 18:00 80 04/10/17 16:00 84 04/10/17 16:00 97.3 72 17 102/48 98 04/10/17 15:00 84 04/10/17 14:00 86 04/10/17 12:00 68 04/10/17 12:00 98.1 68 28 130/58 97 04/10/17 10:00 86 I/O 04/10/17 04/10/17 04/10/17 04/11/17 04/11/17 04/11/17 07:00 15:00 23:00 07:00 15:00 23:00 Intake Total 848 ml 1111 ml 240 ml 100 ml Balance 848 ml 1111 ml 240 ml 100 ml Intake Oral 360 ml 580 ml 240 ml 100 ml IV Total 488 ml 531 ml 0 ml 0 ml # Voids 2 2 1 1 # Bowel Movements 0 2 0 Result Diagram: 04/10/17 0809 04/10/17 0809 Imaging Last Impressions Chest X-Ray 04/09/17 1242 Signed Impressions: Service Date/Time: Sunday, April 09, 2017 13:12 - CONCLUSION: Left upper lobe mass suspicious for malignancy with possible adenopathy within the mediastinum. Adair Ragland MD Head CT 04/09/17 0000 Signed Impressions: Service Date/Time: Sunday, April 09, 2017 13:08 - CONCLUSION: Right frontal lobe mass and MRI examination with and without contrast is recommended to further characterize. Adair Ragland MD Chest CT 04/09/17 0000 Signed Impressions: Service Date/Time: Sunday, April 09, 2017 14:59 - CONCLUSION: 1. There is a 4.1 x 6.9 x 5.2 cm mass in the medial aspect of the left upper lobe which abuts the upper mediastinum. There is extensive mediastinal, hilar and subcarinal adenopathy. Findings are highly suspicious for malignancy. The lesion would be readily amenable to CT-guided biopsy. Samule Vásquez MD Brain MRI 04/09/17 0000 Signed Impressions: Service Date/Time: Sunday, April 09, 2017 22:11 - CONCLUSION: 1. There are 3 rim-enhancing masses identified peripheral enhancement, 2 of which demonstrate hematocrit levels. Metastatic disease would be the leading consideration. 2. Patchy white matter disease most likely on the basis of chronic microvascular ischemic disease. 3. Mastoid fluid bilaterally. Khang Segal MD Abdomen/Pelvis CT 04/09/17 0000 Signed Impressions: Service Date/Time: Sunday, April 09, 2017 14:59 - CONCLUSION: 1. No findings to indicate metastatic disease to the abdomen or pelvis are identified. Samuel Vásquez MD Objective Remarks General: Thin female in no acute distress. Heart: Regular rate and rhythm. No murmur. Lungs: Clear to auscultation bilaterally. No wheezes, rales, or rhonchi. Breathing is nonlabored. Abdomen: Soft, nontender, nondistended. Extremities: No lower extremity edema. Psych: Alert and oriented. Procedures None Urinary Catheter: No Vascular Central Line Catheter: No A/P Problem List: (1) Lung tumor ICD Code: D49.1 Status: Acute (2) Brain mass ICD Code: G93.9 Status: Acute Assessment and Plan 1. Right frontal lobe mass: Multiple masses seen on MRI. Appreciate neurosurgery , oncology recommendations. Surgical resection of mass versus radiation therapy. 2. Lung cancer, left upper lobe: Appreciate pulmonology, oncology recommendations. 3. DVT prophylaxis: SCDs. 4. GI prophylaxis: PPI. Transfer to medical/surgical floor. Pan Ocampo MD Apr 11, 2017 08:59
--- NOTE | 2017-04-11 11:29 | HHI.NSPN ---
History Interval History 66-year-old right-handed female who presented to the emergency room in [place] last evening with complaints of confusion and head shaking. She also relates for the past month or so she has been running into objects on the left side with some unsteadiness as noted by her daughter. Over the last several days, she has had transient head spasms and shaking. A week ago she also had some transient spasms and contractions in the right hand and arm. CT scan of the head was obtained, which revealed a right frontal lobe mass with surrounding edema. She was started on Keppra and also Decadron, and since then she is feeling much better and her mentation has cleared up also per her family. Subsequent workup included an MRI scan of the brain which reveals right posterior frontal medial 2.4 cm partially enhancing mass with surrounding vasogenic edema. There is also a smaller mass adjacent to this less than a centimeter and a left frontoparietal lobe less than centimeter mass also with some enhancement and edema. Overall three brain masses are noted. CT scan of the chest reveals an approximately 7 cm x 5 cm mass in the left upper lobe along with extensive adenopathy. She was diagnosed with nws-dgsud-octk lung cancer a year and a half ago but elected on nonconventional treatment and did not seek chemotherapy or radiation treatment. She says she sought medical care with an oncologist at [facility] as well as in [place]. 04/11/17: No new complaints. Relates that she spoke with medical oncologist who has recommended resection of the larger right brain mass with subsequent pathologic reconfirmation of the diagnosis and radiation/chemotherapy. Review of Systems General: Positive for: insomnia, Negative for: fever, chills Respiratory: Negative for: shortness of breath, cough, sputum Cardiovascular: Negative for: chest pain, palpitations, orthopnea Gastrointestinal: Negative for: nausea, vomitting, diarrhea, constipation Genitourinary: Negative for: urinary burning, urinary frequency, urinary urgency Exam Results Vital Signs Date Time Temp Pulse Resp B/P Pulse Ox O2 Delivery O2 Flow Rate FiO2 04/11/17 08:00 97.2 58 13 107/52 96 04/11/17 07:00 Room Air 21 Intake and Output 04/10/17 04/10/17 04/11/17 08:00 16:00 00:00 Intake Total 848 ml 1111 ml 240 ml Balance 848 ml 1111 ml 240 ml Physical Examination GENERAL: Well-nourished, well-developed patient. SKIN: Warm and dry. HEAD: Normocephalic and atraumatic. EYES: No scleral icterus. No injection or drainage. ENT: No nasal drainage noted. Mucous membranes pink. Airway patent. NECK: Supple, trachea midline. No JVD. CARDIOVASCULAR: Regular rate and rhythm without murmurs, gallops, or rubs. RESPIRATORY: Breath sounds equal bilaterally. No accessory muscle use. GASTROINTESTINAL: Abdomen soft, non-tender, nondistended. EXTREMITIES: No cyanosis or edema. BACK: Nontender without obvious deformity. No CVA tenderness. NEUROLOGICAL: Awake and alert. Pupils Equal and reactive. EOMI. Face symmetric. Tongue midline. Cranial nerves II through XII intact. Motor and sensory grossly within normal limits. Five out of 5 muscle strength in all muscle groups. Normal speech. Normal comprehension. DTR's symmetric. Negative Mccormack' s reflex. Negative Babinski. Lab, Micro, Other Results Administered Medications Medications (Trade) Dose Ordered Sig/Michelle Route PRN Reason Start Time Stop Time Status Last Admin Dose Admin Sodium Chloride (NS Flush) 2 ml BID IV FLUSH 04/09/17 21:00 04/10/17 20:20 Pantoprazole Sodium (Protonix Inj) 40 mg DAILY IV 04/09/17 15:00 04/09/17 16:37 Miscellaneous Information 1 Q361D XX 04/09/17 14:45 04/09/17 14:45 Chlorhexidine Gluconate (Chlorhexidine 2% Cloth) 3 pack Taper DAILY@04 TOP 04/10/17 04:00 04/06/18 03:59 04/10/17 03:22 Senna/Docusate Sodium (Chandni-Colace) 1 tab BID PO 04/09/17 21:00 04/10/17 20:20 Insulin Aspart (NovoLOG SUPPLEMENTAL SCALE) 1 ACHS SQ 04/09/17 21:00 04/10/17 16:00 Temazepam (Restoril) 30 mg HS PRN PO SLEEP 04/10/17 00:30 04/11/17 03:15 Levetriacetam (Keppra) 500 mg Q12HR PO 04/10/17 21:00 04/11/17 08:52 Dexamethasone (Decadron) 4 mg Q6HR PO 04/10/17 12:00 04/11/17 06:22 Last Impressions Chest X-Ray 04/09/17 1242 Signed Impressions: Service Date/Time: Sunday, April 09, 2017 13:12 - CONCLUSION: Left upper lobe mass suspicious for malignancy with possible adenopathy within the mediastinum. Adair Ragland MD Head CT 04/09/17 0000 Signed Impressions: Service Date/Time: Sunday, April 09, 2017 13:08 - CONCLUSION: Right frontal lobe mass and MRI examination with and without contrast is recommended to further characterize. Adair Ragland MD Chest CT 04/09/17 0000 Signed Impressions: Service Date/Time: Sunday, April 09, 2017 14:59 - CONCLUSION: 1. There is a 4.1 x 6.9 x 5.2 cm mass in the medial aspect of the left upper lobe which abuts the upper mediastinum. There is extensive mediastinal, hilar and subcarinal adenopathy. Findings are highly suspicious for malignancy. The lesion would be readily amenable to CT-guided biopsy. Samuel Vásquez MD Brain MRI 04/09/17 0000 Signed Impressions: Service Date/Time: Sunday, April 09, 2017 22:11 - CONCLUSION: 1. There are 3 rim-enhancing masses identified peripheral enhancement, 2 of which demonstrate hematocrit levels. Metastatic disease would be the leading consideration. 2. Patchy white matter disease most likely on the basis of chronic microvascular ischemic disease. 3. Mastoid fluid bilaterally. Khang Segal MD Abdomen/Pelvis CT 04/09/17 0000 Signed Impressions: Service Date/Time: Sunday, April 09, 2017 14:59 - CONCLUSION: 1. No findings to indicate metastatic disease to the abdomen or pelvis are identified. Samuel Vásquez MD Medical Decision Making Impression and Plan 1. Multiple brain masses, the largest one approximately 2.4 cm in the posterior frontal and medial aspect with surrounding edema. There are smaller sub-centimeter lesions in the right frontal and left parietal areas also noted. These findings are very consistent with a metastasis given her history of non-small cell lung cancer. 2. History of left upper lobe large lung mass, non-small cell lung cancer diagnosed a year and a half ago and did not follow through with any conventional radiation of chemotherapy. 3. Possible focal seizures related to the brain masses. On Keppra. I again had a lengthy discussion with the patient and her at the bedside and discussed the treatment options which include craniotomy for resection of the larger right posterior frontal lobe mass with subsequent stereotactic radiosurgery to the resection bed and the other 2 smaller tumors or whole brain radiation therapy. The option of a stereotactic radiosurgery for all 3 brain tumors without any surgery was also discussed. All of their questions answered to their satisfaction and they will inform us of that decision after further contemplation of the options. Sekou Mendez MD Apr 11, 2017 11:29
[2017-04-11] MEDS: SODIUM CHLORIDE 0.9% FLUSH 10 ML FLUSH IV FLUSH SCH ×2 (13:02→20:11)
--- NOTE | 2017-04-11 14:58 | HHI.PR ---
Subjective Remarks alert no sob Objective Vital Signs Date Time Temp Pulse Resp B/P Pulse Ox O2 Delivery O2 Flow Rate FiO2 04/11/17 12:00 98.0 80 27 127/63 99 04/11/17 11:00 77 04/11/17 08:40 96 21 04/11/17 08:00 97.2 58 13 107/52 96 04/11/17 07:00 57 04/11/17 07:00 97 Room Air 21 04/11/17 04:00 97.7 58 29 97/49 93 04/11/17 03:00 62 04/11/17 00:00 97.8 66 26 114/57 98 04/10/17 23:00 63 04/10/17 20:00 97.7 73 22 113/53 94 04/10/17 20:00 73 04/10/17 19:00 95 Room Air 04/10/17 18:00 80 04/10/17 16:00 84 04/10/17 16:00 97.3 72 17 102/48 98 04/10/17 15:00 84 I/O 04/10/17 04/10/17 04/10/17 04/11/17 04/11/17 04/11/17 07:00 15:00 23:00 07:00 15:00 23:00 Intake Total 848 ml 1111 ml 240 ml 100 ml 200 ml Balance 848 ml 1111 ml 240 ml 100 ml 200 ml Intake Oral 360 ml 580 ml 240 ml 100 ml 200 ml IV Total 488 ml 531 ml 0 ml 0 ml 0 ml # Voids 2 2 1 1 2 # Bowel Movements 0 2 0 1 Result Diagram: 04/10/17 0809 04/10/17 0809 Objective Remarks GENERAL: SKIN: Warm and dry. HEAD: Atraumatic. Normocephalic. EYES: Pupils equal and round. No scleral icterus. No injection or drainage. ENT: No nasal bleeding or discharge. Mucous membranes pink and moist. NECK: Trachea midline. No JVD. CARDIOVASCULAR: Regular rate and rhythm. RESPIRATORY: No accessory muscle use. Clear to auscultation. Breath sounds equal bilaterally. GASTROINTESTINAL: Abdomen soft, non-tender, nondistended. Hepatic and splenic margins not palpable. MUSCULOSKELETAL: Extremities without clubbing, cyanosis, or edema. No obvious deformities. NEUROLOGICAL: Awake and alert. No obvious cranial nerve deficits. Motor grossly within normal limits. Five out of 5 muscle strength in the arms and legs. Normal speech. PSYCHIATRIC: Appropriate mood and affect; insight and judgment normal. Assessment and Plan Assessment and Plan ass: metastatic lung CA COPD PLAN BRONCHODILATORS NEEDED ONCOLOGY FOLLOWING. Xu Mcnair MD Apr 11, 2017 14:58
--- NOTE | 2017-04-11 16:48 | PD.ONC.PN ---
Objective Data Date Time Temp Pulse Resp B/P Pulse Ox O2 Delivery O2 Flow Rate FiO2 04/11/17 15:00 74 04/11/17 12:00 98.0 80 27 127/63 99 04/11/17 11:00 77 04/11/17 08:40 96 21 04/11/17 08:00 97.2 58 13 107/52 96 04/11/17 07:00 57 04/11/17 07:00 97 Room Air 21 04/11/17 04:00 97.7 58 29 97/49 93 04/11/17 03:00 62 04/11/17 00:00 97.8 66 26 114/57 98 04/10/17 23:00 63 04/10/17 20:00 97.7 73 22 113/53 94 04/10/17 20:00 73 04/10/17 19:00 95 Room Air 04/10/17 18:00 80 04/11/17 04/11/17 04/11/17 07:00 15:00 23:00 Intake Total 100 ml 200 ml Balance 100 ml 200 ml Result Diagram: 04/10/17 0809 04/10/17 0809 Administered Medications Medications (Trade) Dose Ordered Sig/Michelle Route PRN Reason Start Time Stop Time Status Last Admin Dose Admin Sodium Chloride (NS Flush) 2 ml BID IV FLUSH 04/09/17 21:00 04/11/17 13:02 Pantoprazole Sodium (Protonix Inj) 40 mg DAILY IV 04/09/17 15:00 04/09/17 16:37 Miscellaneous Information 1 Q361D XX 04/09/17 14:45 04/09/17 14:45 Chlorhexidine Gluconate (Chlorhexidine 2% Cloth) 3 pack Taper DAILY@04 TOP 04/10/17 04:00 04/06/18 03:59 04/10/17 03:22 Senna/Docusate Sodium (Chandni-Colace) 1 tab BID PO 04/09/17 21:00 04/10/17 20:20 Insulin Aspart (NovoLOG SUPPLEMENTAL SCALE) 1 ACHS SQ 04/09/17 21:00 04/10/17 16:00 Temazepam (Restoril) 30 mg HS PRN PO SLEEP 04/10/17 00:30 04/11/17 03:15 Levetriacetam (Keppra) 500 mg Q12HR PO 04/10/17 21:00 04/11/17 08:52 Dexamethasone (Decadron) 4 mg Q6HR PO 04/10/17 12:00 04/11/17 13:02 Objective Remarks GENERAL: cachectic, thin SKIN: Warm and dry. HEAD: Normocephalic. EYES: No scleral icterus. No injection or drainage. NECK: Supple, trachea midline. No JVD or lymphadenopathy. LYMPHATIC: No adenopathy. CARDIOVASCULAR: Regular rate and rhythm without murmurs. RESPIRATORY: scattered rhonchi b/l mariano, scattered wheezing GASTROINTESTINAL: Abdomen soft, non-tender, nondistended. EXTREMITIES: No cyanosis, or edema. Assessment/Plan Problem List: (1) Brain edema Status: Acute (2) Brain mass Status: Acute (3) Lung tumor Status: Acute Get Hanson MD Apr 11, 2017 16:48
[2017-04-12] VITALS: BP 112/54; PULSE 53; RESP 14; TEMP 98; O2SAT 98
[2017-04-12] MEDS: DEXAMETHASONE 4 MG TAB PO SCH ×3 (00:52→11:33)
[2017-04-12] MEDS: TEMAZEPAM 15 MG CAP PO PRN (00:53)
[2017-04-12] MEDS: CHLORHEXIDINE GLUCONATE 2 % 1 PACK (2 CLOTHS) TOP SCH (01:19)
[2017-04-12 04:00] VITALS: BP 109/55; PULSE 49; RESP 14; TEMP 98.1; O2SAT 98
[2017-04-12] MEDS: INSULIN ASPART SUPPLEMENTAL SCALE SQ SCH ×2 (06:18→11:00)
[2017-04-12 07:15] VITALS: PULSE 84
[2017-04-12 08:00] VITALS: BP 102/54; PULSE 86; RESP 20; TEMP 97.5; O2SAT 96
[2017-04-12 08:03] VITALS: O2SAT 98
--- NOTE | 2017-04-12 08:40 | HHI.PR ---
Subjective Remarks alert no sob Objective Vital Signs Date Time Temp Pulse Resp B/P Pulse Ox O2 Delivery O2 Flow Rate FiO2 04/12/17 08:03 98 04/12/17 07:15 84 04/12/17 07:00 96 Room Air 04/12/17 04:00 98.1 49 14 109/55 98 04/12/17 00:00 98.0 53 14 112/54 98 04/11/17 23:04 98 21 04/11/17 20:00 75 04/11/17 20:00 98.0 86 24 125/58 98 04/11/17 19:00 98 Room Air 04/11/17 16:00 98.0 82 18 131/63 96 04/11/17 15:00 74 04/11/17 12:00 98.0 80 27 127/63 99 04/11/17 11:00 77 04/11/17 08:40 96 21 I/O 04/11/17 04/11/17 04/11/17 04/12/17 04/12/17 04/12/17 07:00 15:00 23:00 07:00 15:00 23:00 Intake Total 100 ml 200 ml 0 ml 240 ml Balance 100 ml 200 ml 0 ml 240 ml Intake Oral 100 ml 200 ml 240 ml IV Total 0 ml 0 ml 0 ml # Voids 1 2 2 1 # Bowel Movements 0 1 1 Result Diagram: 04/10/17 0804/10/1709 Objective Remarks GENERAL: SKIN: Warm and dry. HEAD: Atraumatic. Normocephalic. EYES: Pupils equal and round. No scleral icterus. No injection or drainage. ENT: No nasal bleeding or discharge. Mucous membranes pink and moist. NECK: Trachea midline. No JVD. CARDIOVASCULAR: Regular rate and rhythm. RESPIRATORY: No accessory muscle use. Clear to auscultation. Breath sounds equal bilaterally. GASTROINTESTINAL: Abdomen soft, non-tender, nondistended. Hepatic and splenic margins not palpable. MUSCULOSKELETAL: Extremities without clubbing, cyanosis, or edema. No obvious deformities. NEUROLOGICAL: Awake and alert. No obvious cranial nerve deficits. Motor grossly within normal limits. Five out of 5 muscle strength in the arms and legs. Normal speech. PSYCHIATRIC: Appropriate mood and affect; insight and judgment normal. Assessment and Plan Assessment and Plan ass: metastatic lung CA COPD PLAN BRONCHODILATORS NEEDED ONCOLOGY FOLLOWING. Xu Mcnair MD Apr 12, 2017 08:39
[2017-04-12] MEDS: PANTOPRAZOLE SODIUM 40 MG VIAL IV SCH (09:00)
[2017-04-12] MEDS: DOCUSATE SODIUM 50 MG/SENNA 8.6 MG TAB PO SCH (09:00)
[2017-04-12] MEDS: SODIUM CHLORIDE 0.9% FLUSH 10 ML FLUSH IV FLUSH SCH (09:14)
[2017-04-12] MEDS: levETIRAcetam 500 MG TAB PO SCH (09:14)
--- NOTE | 2017-04-12 09:49 | HHI.PR ---
Subjective Remarks Follow-up metastatic lung cancer. Patient has no complaints at this time. She is waiting to speak with the radiation oncologist. She is hoping to be able to go home today. She has not decided if she wants surgical treatment or not. Objective Vitals Vital Signs Date Time Temp Pulse Resp B/P Pulse Ox O2 Delivery O2 Flow Rate FiO2 04/12/17 08:03 98 04/12/17 08:00 97.5 86 20 102/54 96 04/12/17 07:15 84 04/12/17 07:00 96 Room Air 04/12/17 04:00 98.1 49 14 109/55 98 04/12/17 00:00 98.0 53 14 112/54 98 04/11/17 23:04 98 21 04/11/17 20:00 75 04/11/17 20:00 98.0 86 24 125/58 98 04/11/17 19:00 98 Room Air 04/11/17 16:00 98.0 82 18 131/63 96 04/11/17 15:00 74 04/11/17 12:00 98.0 80 27 127/63 99 04/11/17 11:00 77 I/O 04/11/17 04/11/17 04/11/17 04/12/17 04/12/17 04/12/17 07:00 15:00 23:00 07:00 15:00 23:00 Intake Total 100 ml 200 ml 0 ml 240 ml Balance 100 ml 200 ml 0 ml 240 ml Intake Oral 100 ml 200 ml 240 ml IV Total 0 ml 0 ml 0 ml # Voids 1 2 2 1 # Bowel Movements 0 1 1 Result Diagram: 04/10/17 0809 04/10/17 0809 Imaging Last Impressions Chest X-Ray 04/09/17 1242 Signed Impressions: Service Date/Time: Sunday, April 09, 2017 13:12 - CONCLUSION: Left upper lobe mass suspicious for malignancy with possible adenopathy within the mediastinum. Adair Ragland MD Head CT 04/09/17 0000 Signed Impressions: Service Date/Time: Sunday, April 09, 2017 13:08 - CONCLUSION: Right frontal lobe mass and MRI examination with and without contrast is recommended to further characterize. Adair Ragland MD Chest CT 04/09/17 0000 Signed Impressions: Service Date/Time: Sunday, April 09, 2017 14:59 - CONCLUSION: 1. There is a 4.1 x 6.9 x 5.2 cm mass in the medial aspect of the left upper lobe which abuts the upper mediastinum. There is extensive mediastinal, hilar and subcarinal adenopathy. Findings are highly suspicious for malignancy. The lesion would be readily amenable to CT-guided biopsy. Samuel Vásquez MD Brain MRI 04/09/17 0000 Signed Impressions: Service Date/Time: Sunday, April 09, 2017 22:11 - CONCLUSION: 1. There are 3 rim-enhancing masses identified peripheral enhancement, 2 of which demonstrate hematocrit levels. Metastatic disease would be the leading consideration. 2. Patchy white matter disease most likely on the basis of chronic microvascular ischemic disease. 3. Mastoid fluid bilaterally. Khang Segal MD Abdomen/Pelvis CT 04/09/17 0000 Signed Impressions: Service Date/Time: Sunday, April 09, 2017 14:59 - CONCLUSION: 1. No findings to indicate metastatic disease to the abdomen or pelvis are identified. Samuel Vásquez MD Objective Remarks General: Thin female in no acute distress. Heart: Regular rate and rhythm. No murmur. Lungs: Clear to auscultation bilaterally. No wheezes, rales, or rhonchi. Breathing is nonlabored. Abdomen: Soft, nontender, nondistended. Extremities: No lower extremity edema. Psych: Alert and oriented. Procedures None Urinary Catheter: No Vascular Central Line Catheter: No A/P Problem List: (1) Lung tumor ICD Code: D49.1 Status: Acute (2) Brain mass ICD Code: G93.9 Status: Acute (3) Lung cancer, primary, with metastasis from lung to other site ICD Code: C34.90 Status: Acute Assessment and Plan 1. Right frontal lobe mass: Multiple masses seen on MRI. Appreciate neurosurgery , oncology recommendations. Surgical resection of mass versus radiation therapy. Awaiting radiation oncology consultation. 2. Lung cancer, left upper lobe: Appreciate pulmonology, oncology recommendations. 3. DVT prophylaxis: SCDs. 4. GI prophylaxis: PPI. Transfer to medical/surgical floor when bed is available. Discharge Planning Possible discharge home later today after radiation oncology consultation. Pan Ocampo MD Apr 12, 2017 09:49
--- NOTE | 2017-04-12 10:12 | HHI.NSPN ---
(Slade Bella) History Chief Complaint: cerebral masses (Slade Bella) Interval History 66-year-old right-handed female who presented to the emergency room in [place] last evening with complaints of confusion and head shaking. She also relates for the past month or so she has been running into objects on the left side with some unsteadiness as noted by her daughter. Over the last several days, she has had transient head spasms and shaking. A week ago she also had some transient spasms and contractions in the right hand and arm. CT scan of the head was obtained, which revealed a right frontal lobe mass with surrounding edema. She was started on Keppra and also Decadron, and since then she is feeling much better and her mentation has cleared up also per her family. Subsequent workup included an MRI scan of the brain which reveals right posterior frontal medial 2.4 cm partially enhancing mass with surrounding vasogenic edema. There is also a smaller mass adjacent to this less than a centimeter and a left frontoparietal lobe less than centimeter mass also with some enhancement and edema. Overall three brain masses are noted. CT scan of the chest reveals an approximately 7 cm x 5 cm mass in the left upper lobe along with extensive adenopathy. She was diagnosed with [id number] lung cancer a year and a half ago but elected on nonconventional treatment and did not seek chemotherapy or radiation treatment. She says she sought medical care with an oncologist at [facility] as well as in [place]. 04/11/17: No new complaints. Relates that she spoke with medical oncologist who has recommended resection of the larger right brain mass with subsequent pathologic reconfirmation of the diagnosis and radiation/chemotherapy. 04/12/17: Pt awake and alert. Denies headache, nausea, vomiting, or paresthesias. (Slade Bella) Review of Systems General: Negative for: fever, chills, insomnia Respiratory: Negative for: shortness of breath, cough, sputum Cardiovascular: Negative for: chest pain Gastrointestinal: Negative for: nausea, vomitting, diarrhea, constipation ( Slade Bella) Exam Results Vital Signs Date Time Temp Pulse Resp B/P Pulse Ox O2 Delivery O2 Flow Rate FiO2 04/12/17 08:03 98 04/12/17 08:00 97.5 86 20 102/54 04/12/17 07:00 Room Air 04/11/17 23:04 21 Intake and Output 04/11/17 04/11/17 04/12/17 08:00 16:00 00:00 Intake Total 100 ml 200 ml 0 ml Balance 100 ml 200 ml 0 ml (Slade Bella) Physical Examination GENERAL: Well-nourished, well-developed patient. SKIN: Warm and dry. HEAD: Normocephalic and atraumatic. EYES: No scleral icterus. No injection or drainage. ENT: No nasal drainage noted. Mucous membranes pink. Airway patent. NECK: Supple, trachea midline. No JVD. CARDIOVASCULAR: Regular rate and rhythm without murmurs, gallops, or rubs. RESPIRATORY: Breath sounds equal bilaterally. No accessory muscle use. GASTROINTESTINAL: Abdomen soft, non-tender, nondistended. EXTREMITIES: No cyanosis or edema. NEUROLOGICAL: Awake and alert. Pupils Equal and reactive. EOMI. Face symmetric. Tongue midline. Cranial nerves II through XII intact. Motor and sensory grossly within normal limits. Five out of 5 muscle strength in all muscle groups. Normal speech. Normal comprehension. (Slade Bella) Lab, Micro, Other Results Last Impressions Chest X-Ray 04/09/17 1242 Signed Impressions: Service Date/Time: Sunday, April 09, 2017 13:12 - CONCLUSION: Left upper lobe mass suspicious for malignancy with possible adenopathy within the mediastinum. Adair Ragland MD Head CT 04/09/17 0000 Signed Impressions: Service Date/Time: Sunday, April 09, 2017 13:08 - CONCLUSION: Right frontal lobe mass and MRI examination with and without contrast is recommended to further characterize. Adair Ragland MD Chest CT 04/09/17 0000 Signed Impressions: Service Date/Time: Sunday, April 09, 2017 14:59 - CONCLUSION: 1. There is a 4.1 x 6.9 x 5.2 cm mass in the medial aspect of the left upper lobe which abuts the upper mediastinum. There is extensive mediastinal, hilar and subcarinal adenopathy. Findings are highly suspicious for malignancy. The lesion would be readily amenable to CT-guided biopsy. Samuel Vásquez MD Brain MRI 04/09/17 0000 Signed Impressions: Service Date/Time: Sunday, April 09, 2017 22:11 - CONCLUSION: 1. There are 3 rim-enhancing masses identified peripheral enhancement, 2 of which demonstrate hematocrit levels. Metastatic disease would be the leading consideration. 2. Patchy white matter disease most likely on the basis of chronic microvascular ischemic disease. 3. Mastoid fluid bilaterally. Khang Segal MD Abdomen/Pelvis CT 04/09/17 0000 Signed Impressions: Service Date/Time: Sunday, April 09, 2017 14:59 - CONCLUSION: 1. No findings to indicate metastatic disease to the abdomen or pelvis are identified. Samuel Vásquez MD 04/11/17 04/11/17 04/12/17 15:00 23:00 07:00 Intake Total 200 ml 0 ml 240 ml Balance 200 ml 0 ml 240 ml Intake Oral 200 ml 240 ml IV Total 0 ml 0 ml # Voids 2 2 1 # Bowel Movements 1 1 (Slade Bella) Medical Decision Making Impression and Plan Impression and Plan 1. Multiple brain masses, the largest one approximately 2.4 cm in the posterior frontal and medial aspect with surrounding edema. There are smaller sub-centimeter lesions in the right frontal and left parietal areas also noted. These findings are very consistent with a metastasis given her history of non-small cell lung cancer. 2. History of left upper lobe large lung mass, non-small cell lung cancer diagnosed a year and a half ago and did not follow through with any conventional radiation of chemotherapy. 3. Possible focal seizures related to the brain masses. On Keppra. P: Dr. Mendez has had a discussion with the patient and her at the bedside and discussed the treatment options which include craniotomy for resection of the larger right posterior frontal lobe mass with subsequent stereotactic radiosurgery to the resection bed and the other 2 smaller tumors or whole brain radiation therapy. The option of a stereotactic radiosurgery for all 3 brain tumors without any surgery was also discussed. All of their questions answered to their satisfaction and they will inform us of that decision after further contemplation of the options. Pt and family will be meeting with radiation oncology today to discuss further. I have discussed with pt and family today. (Slade Bella) Attending Statement The exam, history, and the medical decision-making described in the above note were completed with the assistance of the mid-level provider. I reviewed and agree with the findings presented. I attest that I had a [id number] encounter with the patient on the same day, and personally performed and documented my assessment and findings in the medical record. Patient has elected on radiosurgery and will follow-up with Dr. Tavares from radiation oncology to schedule this. Cleared for discharge from my standpoint. Continue with Keppra for seizure prophylaxis as well as Decadron 4mg 3 times a day which can be further weaned by radiation oncology. Discussed with Dr. Ocampo. ( Sekou Mendez MD) Slade Bella Apr 12, 2017 10:12 Sekou Mendez MD Apr 12, 2017 10:58
--- NOTE | 2017-04-12 10:32 | HHI.DCPOC ---
Discharge Care Plan Diagnosis: (1) Lung cancer, primary, with metastasis from lung to other site (2) Brain mass Goals to Promote Your Health * To prevent worsening of your condition and complications * To maintain your health at the optimal level Directions to Meet Your Goals Take your medications as prescribed Follow your dietary instruction Follow activity as directed Keep your appointments as scheduled Take your immunizations and boosters as scheduled If your symptoms worsen call your PCP, if no PCP go to Urgent Care Center or Emergency Room Smoking is Dangerous to Your Health. Avoid second hand smoke Call the 24-hour hour crisis hotline for domestic abuse at Pan Ocampo MD Apr 12, 2017 10:32
[2017-04-12] MEDS ORDERED: LEVE500 PO (10:35)
[2017-04-12] MEDS ORDERED: DEXA4TAB PO (10:53)
--- NOTE | 2017-04-12 11:25 | PD.ONC.PN ---
Subjective Subjective Remarks Afebrile overnight. Patient states she feels good today. She is eager to go home. She is being discharged after she sees Dr. Tavares today. Patient seen at 10AM. Objective Data Date Time Temp Pulse Resp B/P Pulse Ox O2 Delivery O2 Flow Rate FiO2 04/12/17 08:03 98 04/12/17 08:00 97.5 86 20 102/54 96 04/12/17 07:15 84 04/12/17 07:00 96 Room Air 04/12/17 04:00 98.1 49 14 109/55 98 04/12/17 00:00 98.0 53 14 112/54 98 04/11/17 23:04 98 21 04/11/17 20:00 75 04/11/17 20:00 98.0 86 24 125/58 98 04/11/17 19:00 98 Room Air 04/11/17 16:00 98.0 82 18 131/63 96 04/11/17 15:00 74 04/11/17 12:00 98.0 80 27 127/63 99 04/12/17 04/12/17 04/12/17 07:00 15:00 23:00 Intake Total 240 ml Balance 240 ml Result Diagram: 04/10/17 0809 04/10/17 0809 Administered Medications Medications (Trade) Dose Ordered Sig/Michelle Route PRN Reason Start Time Stop Time Status Last Admin Dose Admin Sodium Chloride (NS Flush) 2 ml BID IV FLUSH 04/09/17 21:00 04/12/17 09:14 Pantoprazole Sodium (Protonix Inj) 40 mg DAILY IV 04/09/17 15:00 04/09/17 16:37 Miscellaneous Information 1 Q361D XX 04/09/17 14:45 04/09/17 14:45 Chlorhexidine Gluconate (Chlorhexidine 2% Cloth) 3 pack Taper DAILY@04 TOP 04/10/17 04:00 04/06/18 03:59 04/10/17 03:22 Senna/Docusate Sodium (Chandni-Colace) 1 tab BID PO 04/09/17 21:00 04/10/17 20:20 Insulin Aspart (NovoLOG SUPPLEMENTAL SCALE) 1 ACHS SQ 04/09/17 21:00 04/10/17 16:00 Temazepam (Restoril) 30 mg HS PRN PO SLEEP 04/10/17 00:30 04/12/17 00:53 Levetriacetam (Keppra) 500 mg Q12HR PO 04/10/17 21:00 04/12/17 09:14 Dexamethasone (Decadron) 4 mg Q6HR PO 04/10/17 12:00 04/12/17 06:28 Objective Remarks GENERAL: Middle aged female upright in bed in nad. SKIN: Warm and dry. HEAD: Normocephalic. EYES: No injection or drainage. NECK: Supple, trachea midline. CARDIOVASCULAR: Regular rate and rhythm RESPIRATORY: Breath sounds equal bilaterally. No accessory muscle use. GASTROINTESTINAL: Abdomen soft, non-tender, nondistended. EXTREMITIES: No cyanosis NEUROLOGICAL: awake and alert, normal speech. moving all extremities. Assessment/Plan Problem List: (1) Brain edema Status: Acute (2) Brain mass Status: Acute (3) Lung tumor Status: Acute Assessment 66y/o female with metastatic lung cancer with brain mets. Plan 1. patient wishing to proceed with XRT only, will await Dr. Tavares, radiation oncology recommendations 2. supportive care Attending Statement The exam, history, and the medical decision-making described in the above note were completed with the assistance of the mid-level provider. I reviewed and agree with the findings presented. I attest that I had a [id number] encounter with the patient on the same day, and personally performed and documented my assessment and findings in the medical record. Kenya Timmons Apr 12, 2017 11:25 Get Hanson MD Apr 14, 2017 00:13
--- NOTE | 2017-04-12 15:27 | MB ---
cc: KARAN ALAMO M.D., AWAIS FACTOR, BRAD A. MD LEE, LESLIE M. M.D. DATE OF CONSULTATION: 04/12/2017 Mrs. Roche is a 58-year-old female I was asked to see by Dr. Alamo. A copy of this evaluation will be forwarded to Dr. Alamo to aid in the medical decision-making process. Treatment recommendations will be provided as well. DIAGNOSIS History of non-small cell lung cancer with three new intracranial lesions suspicious for metastasis. HISTORY OF PRESENT ILLNESS Mrs. Roche is a 58-year-old female with a history of non-small cell lung cancer. She noted some facial changes. She underwent imaging demonstrating a right frontal lobe mass and two other areas in the brain. She does have areas in the chest suspicious for primary lung cancer with mediastinal adenopathy as well. She has three ring enhancing masses in the brain. She has been started on steroids. She feels reasonably well at this time. She is accompanied by her daughter as well as her . She inquires about the potential role of radiotherapy. She was seen by Dr. Alamo earlier today to discuss radiosurgery. She initially noted right upper extremity tremors and potentially right-sided gaze as well. She has been trying diet modification for treatment. She has been seen by a medical oncologist in the past, Dr. Werner. PAST MEDICAL/SURGICAL HISTORY 1. Decreased mood. 2. Herniated disc. 3. Tubal ligation. 4. Lung cancer. She notes biopsy had demonstrated this. We do not have pathology available at the time of dictation. 5. Tonsillectomy. SOCIAL HISTORY She continues to smoke. She drinks alcohol. ALLERGIES NEOMYCIN. REVIEW OF SYSTEMS Denies shortness of breath. She reports occasional chest discomfort. She denies headache at this time. She denies weakness at this time. She denies visual changes. PHYSICAL EXAMINATION GENERAL: A pleasant female comfortable. KPS 80-90. EYES: Extraocular muscles intact. No scleral icterus. EXTREMITIES: No clubbing, cyanosis or edema. NEUROLOGIC: Alert and oriented, able to follow two-step commands. Speech fluent. PSYCHIATRIC: Appropriate. RADIOGRAPHIC IMAGING DATA MRI demonstrates three lesions suspicious for metastases. One is large, approximately 2.3 cm, cystic, right frontal. Two are small to small Staging study of the chest demonstrates disease in the chest and mediastinum as well. PATHOLOGY DATA [facility] IMPRESSION Mrs. Roche is 58-year-old female with intracranial lesions suspicious for metastasis. RECOMMENDATIONS Counseling and coordination of care included discussion of treatment options. More than 50% of the approximately 60-minute [id number] encounter involved treat considerations. We discussed CyberKnife. We discussed GammaKnife. We discussed . We discussed radiosurgery. We discussed fractionated radiotherapy. We discussed greater than 9/10 chance of local control of the smaller lesions, potentially 3/4 of the larger lesion. We discussed fractionation. We discussed surgical resection followed by radiation therapy. We discussed radiation therapy alone. We discussed low risk of severe permanent injury. We discussed CT simulation. We discussed radiotherapy radiosurgery technique. She expressed good understanding of treatment approach. She will contact us if she does wish to pursue treatment. She is not certain if she does at this time. We discussed surveillance imaging as well. I believe she will be discharged today. She will contact us outpatient if she wants to pursue treatment here which she may. We discussed proton therapy as well. I discussed her case with Dr. Alamo and Dr. Hanson as well. MD FROYLAN Smith/ZANDER /11:38 AM /3:12 PM
== END 2017-04-12 11:53 | disposition home or self-care (01) | DRG 54 ==
LOC: PHED 12:23 → PHEDA 14:37 → N03A 17:45
PROVIDERS: ADMIT Family Medicine; ATTEND Family Medicine
DX: C79.31 Secondary malignant neoplasm of brain (principal); G93.6 Cerebral edema; C34.12 Malignant neoplasm of upper lobe, left bronchus or lung; Z68.1 Body mass index [BMI] 19.9 or less, adult; J44.9 Chronic obstructive pulmonary disease, unspecified; F32.9 Major depressive disorder, single episode, unspecified; R63.4 Abnormal weight loss; F17.210 Nicotine dependence, cigarettes, uncomplicated; R25.1 Tremor, unspecified
CPT/HCPCS: 70450; 70553; 71020; 71260; 74177; 80053; 82140; 82550; 82805; 82948; 83735; 84100; 84484; 85025; 85610; 85730; 87641; 93005; 99285; A9579; C9113; J1100; J1815; J1953; J7030; J7040; J8540; Q9967

== ENCOUNTER 2017-05-13 11:35 | Inpatient (IN) | payer BC, MEDICARE ==
[~2017-05-13] VITALS: Ht 165.1 cm; Wt 53.1 kg
[2017-05-13] VITALS (7 sets, daily range): BP systolic 113–141; BP diastolic 52–67; PULSE 86–111; RESP 16–24; TEMP 98.8–100; O2SAT 93–96
[~2017-05-13 11:35] MED LIST changes: -ALPR-138 PO; -CO Q 10 PO; +DEXA4TAB PO; -HERB LAX PO; +LEVE500 PO; -LORT7.5T3 PO; -OMEG1CAP53 PO; -OYST500T77 PO; -TAB-TAB PO; +TEMA15CA PO
--- NOTE | 2017-05-13 11:40 | PD ---
Physical Exam Date Seen by Provider: May 13, 2017 Time Seen by Provider: 11:38 Narrative 66 YOWF C/O SOB, LEG SWELLING. H/O NON SMALL CELL WITH BRAIN METS.LUNG VS REVIEWED WAITING FOR BED PLACEMENT Data Data Last Documented VS Vital Signs Date Time Temp Pulse Resp B/P Pulse Ox O2 Delivery O2 Flow Rate FiO2 05/13/17 11:36 98.8 111 23 115/56 94 MDM Supervised Visit with CHIARA: Santy Hernandez May 13, 2017 11:40
[2017-05-13] MEDS ORDERED: ALPR.5 PO (12:25)
[2017-05-13] MEDS ORDERED: HYDR-3533 PO (12:26)
[2017-05-13] MEDS ORDERED: SODIUM CHLOR 0.9% 1000 ML INJ 1,000 ML IV SCH (12:45)
[2017-05-13] MEDS ORDERED: AMPICILLIN-SULBACTAM INJ 3 GM in SODIUM CHLORIDE 0.9% INJ 100 ML IV ONE (12:45)
[2017-05-13] MEDS ORDERED: MORPHINE SULFATE 4 MG/ML INJ IV PUSH ONE (12:45)
[2017-05-13] MEDS ORDERED: ONDANSETRON HCL 4 MG/2 ML VIAL IV PUSH ONE (12:45)
--- NOTE | 2017-05-13 12:52 | PD ---
HPI Chief Complaint: Respiratory Distress Time Seen by Provider: 12:20 Travel History International Travel<30 days: No Contact w/Intl Traveler<30days: No Traveled to known affect area: No History of Present Illness HPI 66-year-old female complains of pain swelling the right side of face, shortness of breath, bilateral ankle swelling. Patient has history of metastatic lung CA. 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 Patient had infusion of medication yesterday for osteoporosis. Patient does not know the name of that. Patient has been [place] oncologist [place] for her cancer. Patient had dental procedure done 2 days ago on the right gum. Patient states that she has increasing pain and swelling of the right side of face since yesterday. Patient also had increasing weakness since yesterday. Patient complaining of shortness of breath this morning. Patient shortness of breath and increased ankle swelling since last night. Patient denies any fever chills. Patient denies any chest pain. Patient denies abdominal pain. Patient denies any nausea vomiting diarrhea. Patient denies any dysuria or frequency. Patient denies any back pain. 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) Neurologic: No Reproductive: No Respiratory: Yes (LUNG CANCER) Tubal Ligation: Yes Past Surgical History Appendectomy: Yes Ear Surgery: Yes (RIGHT) Tonsillectomy: Yes Other Surgery: Yes Social History Alcohol Use: No Tobacco Use: No Substance Use: No Allergies-Medications (Allergen,Severity, Reaction): Coded Allergies: neomycin (Unverified Allergy, Severe, SKIN BREAKDOWN, ITCHING, 05/11/17) Reported Meds & Prescriptions Reported Meds & Active Scripts Active Keppra (Levetiracetam) 500 Mg Tab 500 Mg PO Q12HR Reported Lortab (Hydrocodone-Acetaminophen) 5-325 Mg Tab 1-2 Tab PO Q6H PRN Xanax (Alprazolam) 0.5 Mg Tab 0.5 Mg PO HS PRN Temazepam 15 Mg Cap 15 Mg PO HS PRN Review of Systems General / Constitutional: No: Fever Eyes: No: Visual changes HENT: No: Headaches Cardiovascular: No: Chest Pain or Discomfort Respiratory: No: Shortness of Breath Gastrointestinal: No: Abdominal Pain Genitourinary: No: Dysuria Musculoskeletal: No: Pain Skin: No Rash Neurologic: No: Weakness Psychiatric: No: Depression Endocrine: No: Polydipsia Hematologic/Lymphatic: No: Easy Bruising Physical Exam Narrative GENERAL: Well-nourished, well-developed patient. SKIN: Focused skin assessment warm/dry. HEAD: Normocephalic. EYES: No scleral icterus. No injection or drainage. Pupils 3 mm equal reactive. Patient has soft tissue swelling tenderness right lower gum area. Patient has soft tissue swelling and tenderness of the right cheek and right mandible area. NECK: Supple, trachea midline. No JVD or lymphadenopathy. CARDIOVASCULAR: Regular rate and rhythm without murmurs, gallops, or rubs. RESPIRATORY: Breath sounds equal bilaterally. No accessory muscle use. GASTROINTESTINAL: Abdomen soft, non-tender, nondistended. MUSCULOSKELETAL: No cyanosis, or edema. BACK: Nontender without obvious deformity. No CVA tenderness. Neurologic exam: Patient is awake and alert oriented 3. No obvious focal neurological deficit. Data Data Last Documented VS Vital Signs Date Time Temp Pulse Resp B/P Pulse Ox O2 Delivery O2 Flow Rate FiO2 05/13/17 13:59 101 141/63 93 Nasal Cannula 1.5 05/13/17 13:30 18 05/13/17 12:27 100.0 Orders Electrocardiogram (05/13/17 12:40) Complete Blood Count With Diff (05/13/17 12:40) Comprehensive Metabolic Panel (05/13/17 12:40) B-Type Natriuretic Peptide (05/13/17 12:40) Prothrombin Time / Inr (Pt) (05/13/17 12:40) Act Partial Throm Time (Ptt) (05/13/17 12:40) Blood Culture (05/13/17 12:40) Urinalysis - C+S If Indicated (05/13/17 12:40) Chest, Single Ap (05/13/17 12:40) Iv Access Insert/Monitor (05/13/17 12:40) Ecg Monitoring (05/13/17 12:40) Oximetry (05/13/17 12:40) Lactic Acid (05/13/17 12:40) Sodium Chlor 0.9% 1000 Ml Inj (Ns 1000 M (05/13/17 12:45) Morphine Inj (Morphine Inj) (05/13/17 12:45) Ondansetron Inj (Zofran Inj) (05/13/17 12:45) Ampicillin-Sulbactam Inj (Unasyn Inj) (05/13/17 12:45) Ct Facial Bones W Iv Contrast (05/13/17 ) Ct Pulmonary Angiogram (05/13/17 12:49) Albuterol-Ipratropium Neb (Duoneb Neb) (05/13/17 14:15) Iohexol 350 Inj (Omnipaque 350 Inj) (05/13/17 15:24) Vancomycin Inj (Vancomycin Inj) (05/13/17 16:45) Labs Laboratory Tests Test 05/13/17 05/13/17 12:45 13:00 White Blood Count 6.1 TH/MM3 Red Blood Count 4.49 MIL/MM3 Hemoglobin 13.2 GM/DL Hematocrit 40.2 % Mean Corpuscular Volume 89.5 FL Mean Corpuscular Hemoglobin 29.5 PG Mean Corpuscular Hemoglobin 32.9 % Concent Red Cell Distribution Width 14.8 % Platelet Count 179 TH/MM3 Mean Platelet Volume 7.0 FL Neutrophils (%) (Auto) 79.7 % Lymphocytes (%) (Auto) 8.1 % Monocytes (%) (Auto) 10.5 % Eosinophils (%) (Auto) 1.3 % Basophils (%) (Auto) 0.4 % Neutrophils # (Auto) 4.9 TH/MM3 Lymphocytes # (Auto) 0.5 TH/MM3 Monocytes # (Auto) 0.6 TH/MM3 Eosinophils # (Auto) 0.1 TH/MM3 Basophils # (Auto) 0.0 TH/MM3 CBC Comment DIFF FINAL Differential Comment Prothrombin Time 10.0 SEC Prothromb Time International 0.9 RATIO Ratio Activated Partial 26.8 SEC Thromboplast Time Sodium Level 130 MEQ/L Potassium Level 4.0 MEQ/L Chloride Level 99 MEQ/L Carbon Dioxide Level 23.4 MEQ/L Anion Gap 8 MEQ/L Blood Urea Nitrogen 8 MG/DL Creatinine 0.45 MG/DL Estimat Glomerular Filtration 139 ML/MIN Rate Random Glucose 133 MG/DL Lactic Acid Level 2.1 mmol/L Calcium Level 8.1 MG/DL Total Bilirubin 0.6 MG/DL Aspartate Amino Transf 12 U/L (AST/SGOT) Alanine Aminotransferase 20 U/L (ALT/SGPT) Alkaline Phosphatase 53 U/L B-Type Natriuretic Peptide 32 PG/ML Total Protein 5.8 GM/DL Albumin 2.4 GM/DL Urine Color YELLOW Urine Turbidity CLEAR Urine pH 6.0 Urine Specific Halsey 1.018 Urine Protein TRACE mg/dL Urine Glucose (UA) 300 mg/dL Urine Ketones NEG mg/dL Urine Occult Blood NEG Urine Nitrite NEG Urine Bilirubin NEG Urine Urobilinogen LESS THAN 2.0 MG/DL Urine Leukocyte Esterase NEG Urine RBC LESS THAN 1 /hpf Urine WBC 1 /hpf Urine Squamous Epithelial <1 /hpf Cells Urine Mucus FEW /lpf Microscopic Urinalysis Comment CULT NOT INDICATED MDM Medical Decision Making Medical Screen Exam Complete: Yes Emergency Medical Condition: Yes Interpretation(s) Last Impressions CT Angiography 05/13/17 1249 Signed Impressions: Service Date/Time: , May 13, 2017 15:04 - CONCLUSION: 1. No evidence of pulmonary embolism. 2. Mild interval increase in size of the known large left upper lobe tumor mass. 3. New focal air consolidative opacity along the lateral left lower lobe which may represent tumor versus post obstructive pneumonia. 4. Small amount of pericardial fluid. 5. No spinal or hilar adenopathy is again noted. 6. New small bilateral pleural effusions right greater than left. Randy Edwards MD Chest X-Ray 05/13/17 1240 Signed Impressions: Service Date/Time: , May 13, 2017 13:07 - CONCLUSION: 1. Unchanged masslike consolidation within the left upper lobe. 2. No consolidation within the peripheral aspects of the left lower lobe. Alverto Orr Jr., MD Maxillofacial CT 05/13/17 0000 Signed Impressions: Service Date/Time: April 15:01 - CONCLUSION: 1. Streak artifact from multiple dental fillings in the mandible and maxilla. 2. The bony structures otherwise intact with no evidence of metastatic disease. 3. The known metastatic lesion in right parietal lobe is faintly visualized. Randy Edwards MD 1639 PM. CBC with WBC 6.1. Hemoglobin 13.2 hematocrit 40.2. 79 neutrophil. Sodium 1:30. Lactic acid 2.1. Differential Diagnosis Differential diagnosis including dental pain, dental abscess, cellulitis, electrolyte abnormality, pneumonia, PE, UTI, sepsis. Narrative Course 66-year-old female with pain and swelling right side of face, increasing weakness, shortness of breath and swelling of the ankles. History of metastatic lung CA. Normal saline solution 100 cc an hour. Unasyn 3 g IV given. Vancomycin 1 g IV given. Albuterol with Atrovent unit dose treatment times one. Diagnosis Primary Impression: Pneumonia Qualified Code: J18.1 - Pneumonia of left lower lobe due to infectious organism Additional Impression: Dental infection Josr Amezcua MD May 13, 2017 12:52
[2017-05-13 13:18] LABS: AUTOMATED NEUTROPHIL # 4.9 TH/MM3 (1.8-7.7); BASOPHIL % 0.4 % (0.0-2.0); EOSINOPHIL # 0.1 TH/MM3 (0-0.4); EOSINOPHIL % 1.3 % (0.0-4.0); HEMATOCRIT 40.2 % (35.0-46.0); HEMO FLAGS DIFF FINAL; LYMPH % 8.1 % (9.0-44.0); LYMPHOCYTE # 0.5 TH/MM3 (1.0-4.8); MEAN CELL VOLUME 89.5 FL (80.0-100.0); MEAN CORPUSCULAR HEMOGLOBIN 29.5 PG (27.0-34.0); MEAN CORPUSCULAR HGB CONC 32.9 % (32.0-36.0); MONO % 10.5 % (0.0-8.0); NEUT % 79.7 % (16.0-70.0); PLATELET COUNT 179 TH/MM3 (150-450); RED BLOOD COUNT 4.49 MIL/MM3 (4.00-5.30); RED CELL DISTRIBUTION WIDTH 14.8 % (11.6-17.2); WHITE BLOOD COUNT 6.1 TH/MM3 (4.0-11.0)
[2017-05-13 13:23] LABS: APTT (PATIENT) 26.8 SEC (24.3-30.1); INTERNATIONAL NORMALIZED RATIO 0.9 RATIO
[2017-05-13 13:28] LABS: ALT (GPT) 20 U/L (10-53); ANION GAP 8 MEQ/L (5-15); AST (GOT) 12 U/L (15-37); BICARBONATE 23.4 MEQ/L (21.0-32.0); BLOOD UREA NITROGEN 8 MG/DL (7-18); CHLORIDE 99 MEQ/L (98-107); GLOMERULAR FILTRATION RATE 139 ML/MIN (>89); SODIUM (NA) 130 MEQ/L (136-145)
[2017-05-13 13:31] LABS: ALKALINE PHOSPHATASE 53 U/L (45-117); TOTAL BILIRUBIN ADULT 0.6 MG/DL (0.2-1.0)
[2017-05-13 13:47] LABS: BLOOD, URINE NEG (NEG); COMMENT (UR) CULT NOT INDICATED; CULTURE IF INDICATED CULT NOT INDICATED; GLUCOSE,URINE 300 mg/dL (NEG); KETONE, URINE NEG (NEG); MUCUS URINE FEW /lpf (OCC); NITRITE,URINE NEG (NEG); SQUAMOUS EPITHELIAL CELL URINE <1 /hpf (0-5); URINE COLOR YELLOW (YELLW/STRAW)
--- NOTE | 2017-05-13 14:07 | RADRPT ---
EXAM DATE/TIME: 05/13/2017 13:07 [facility] COMPARISON: CT THORAX W CONTRAST, April 09, 2017, 14:59. CHEST PA & LAT, April 09, 2017, 13:12. INDICATIONS : Short of breath. MEDICAL HISTORY : Carcinoma, lung. SURGICAL HISTORY : Appendectomy. Tonsillectomy. Right knee. Ear. ENCOUNTER: Initial ACUITY: 2 days PAIN SCORE: 0/10 LOCATION: Bilateral chest FINDINGS: A single portable frontal view the chest shows a persistent masslike density within the left upper lo be. A new parenchymal density is seen laterally within the left lower lobe. Right lung is clear. Hear t is normal in size. No effusion. Bony structures are unremarkable. CONCLUSION: 1. Unchanged masslike consolidation within the left upper lobe. 2. No consolidation within the peripheral aspects of the left lower lobe. Alverto Orr Jr., MD on May 13, 2017 at 13:58 Board Certified Radiologist. This report was verified electronically.
[2017-05-13] MEDS ORDERED: RESP: ALBUTEROL 2.5 MG/IPRATROPIUM 0.5 MG NEB (SCH) INH ONE (14:15)
[2017-05-13] MEDS ORDERED: IOHEXOL 350 MG/ML 10 ML VIAL (for RAD DIAG) IV ONE (15:24)
--- NOTE | 2017-05-13 15:27 | RADRPT ---
EXAM DATE/TIME: 05/13/2017 15:04 [place] Corrected on: May 13, 2017; [facility] COMPARISON: CT THORAX W CONTRAST, April 09, 2017, 14:59. CHEST SINGLE AP, May 13, 2017, 13:07. INDICATIONS : Dyspnea with bilateral ankle swelling. Known metastatic lung cancer. IV CONTRAST: 66 cc Omnipaque 350 (iohexol) IV ; Cumulative dose for multiple exams. RADIATION DOSE: 5.25 CTDIvol (mGy) ; Combined studies MEDICAL HISTORY : Metastatic, bone. Metastatic, lung. brain cancer SURGICAL HISTORY : Appendectomy. ENCOUNTER: Initial ACUITY: 1 day PAIN SCALE: 2/10 LOCATION: chest TECHNIQUE: Volumetric scanning of the chest was performed using a pulmonary embolism protocol MIP images were re constructed. Using automated exposure control and adjustment of the mA and/or kV according to patien t size, radiation dose was kept as low as reasonably achievable to obtain optimal diagnostic quality images. DICOM format image data is available electronically for review and comparison. Follow-up recommendations for detected pulmonary nodules are based at a minimum on nodule size and pa tient risk factors according to Fleischner Society Guidelines. FINDINGS: PULMONARY ARTERIES: No filling defects are seen in the pulmonary arteries through the segmental level. LUNGS: Abnormal density on chest plain film corresponds to the known large tumor mass in the left upper lobe . This appears slightly more prominent and there is a new pleural-based area of consolidative opacity along the lateral left lower lobe measuring up to approximately 4.5 x 2 cm. measures approximately 6 .6 x 4.2 cm in greatest diameter PLEURAE: There are small bilateral pleural effusions now noted. MEDIASTINUM: There is good visualization of the great vessels of the middle mediastinum. There is a small amount o f pericardial fluid present. Subcarinal and bilateral hilar adenopathy is again noted. There is pretr acheal adenopathy as well. MUSCULOSKELETAL: Within normal limits for patient age. MISCELLANEOUS: The visualized upper abdominal organs demonstrate no acute abnormality. CONCLUSION: 1. No evidence of pulmonary embolism. 2. Mild interval increase in size of the known large left upper lobe tumor mass. 3. New focal air consolidative opacity along the lateral left lower lobe which may represent tumor ve rsus post obstructive pneumonia. 4. Small amount of pericardial fluid. 5. No spinal or hilar adenopathy is again noted. 6. New small bilateral pleural effusions right greater than left. Randy Edwards MD on May 13, 2017 at 15:17 Board Certified Radiologist. This report was verified electronically. Randy Edwards MD on May 13, 2017 at 16:09 Board Certified Radiologist. This report was verified electronically.
--- NOTE | 2017-05-13 15:39 | RADRPT ---
EXAM DATE/TIME: 05/13/2017 15:01 [facility] COMPARISON: MRI BRAIN W & W/O CONTRAST, April 09, 2017, 22:11. INDICATIONS : Right jaw pain , dental work 1 week ago. Metastatic lung cancer with 3 metastatic lesions in the brai n seen on recent MRI. IV CONTRAST: 70 cc Omnipaque 350 (iohexol) IV RADIATION DOSE: 36.23 CTDIvol (mGy) MEDICAL HISTORY : Metastatic lung cancer. SURGICAL HISTORY : Appendectomy. ENCOUNTER: Initial ACUITY: 1 day PAIN SCALE: 5/10 LOCATION: Right facial TECHNIQUE: Volumetric scanning of the facial bones was performed. Using automated exposure control and adjustme nt of the mA and/or kV according to patient size, radiation dose was kept as low as reasonably achiev able to obtain optimal diagnostic quality images. DICOM format image data is available electronicnetZentry y for review and comparison. FINDINGS: ORBITS: The orbital and infraorbital osseous structures are intact. The retroconal structures have a normal configuration. No radiopaque foreign bodies are seen. NASAL BONE: The nasal bone and maxillary spine are intact ZYGOMATIC ARCHES: Symmetric without evidence of fracture. SINUSES: The maxillary, ethmoid and frontal sinuses are intact. No air-fluid levels seen. NASAL CAVITY: The nasal septum is intact and midline. The lacrimal ducts are intact. SOFT TISSUES: No radiopaque foreign bodies seen. No soft-tissue swelling is seen. There is no evidence of abscess. There is streak artifact from multiple dental fillings in the INTRACRANIAL: No intracranial air seen. CRIBIFORM PLATE: Grossly intact. The known metastatic lesion in the right parietal lobe is faintly visualized. CONCLUSION: 1. Streak artifact from multiple dental fillings in the mandible and maxilla. 2. The bony structures otherwise intact with no evidence of metastatic disease. 3. The known metastatic lesion in right parietal lobe is faintly visualized. Randy Edwards MD on May 13, 2017 at 15:30 Board Certified Radiologist. This report was verified electronically.
[2017-05-13] MEDS ORDERED: VANCOMYCIN INJ 1,000 MG in SODIUM CHLOR 0.9% 250 ML INJ 250 ML IV ONE (16:45)
[2017-05-13] MEDS ORDERED: ALPRAZolam 0.5 MG TAB PO PRN (17:30)
[2017-05-13] MEDS ORDERED: ONDANSETRON HCL 4 MG/2 ML VIAL IVP PRN (17:45)
[2017-05-13] MEDS ORDERED: PROCHLORPERAZINE 25 MG SUPP RECTAL PRN (17:45)
[2017-05-13] MEDS ORDERED: LACTULOSE SYRUP 20 GM/30 ML CUP PO PRN (17:45)
[2017-05-13] MEDS ORDERED: ACETAMINOPHEN/HYDROcodone 325 MG/5 MG TAB PO PRN (17:45)
[2017-05-13] MEDS ORDERED: MAGNESIUM HYDROXIDE SUSP 30 ML CUP PO PRN (17:45)
[2017-05-13] MEDS ORDERED: SENNOSIDES 8.6 MG TAB PO PRN (17:45)
[2017-05-13] MEDS ORDERED: ACETAMINOPHEN 325 MG TAB PO PRN (17:45)
[2017-05-13] MEDS ORDERED: METOCLOPRAMIDE HCL 10 MG/2 ML VIAL IV PUSH PRN (17:45)
[2017-05-13] MEDS ORDERED: ACETAMINOPHEN/HYDROcodone 325 MG/10 MG TAB PO PRN (17:45)
[2017-05-13] MEDS ORDERED: MORPHINE SULFATE 4 MG/ML INJ IV PRN ×2 (17:45)
[2017-05-13] MEDS ORDERED: BISACODYL 10 MG SUPP RECTAL PRN (17:45)
[2017-05-13] MEDS ORDERED: SODIUM CHLORIDE 0.9% FLUSH 10 ML FLUSH IV FLUSH PRN (17:45)
[2017-05-13] MEDS ORDERED: NALOXONE HCL 0.4 MG/ML AMP IV PRN (17:45)
[2017-05-13] MEDS ORDERED: Vancomycin Consult Pharmacy 1 EA OTHER SCH (17:45)
--- NOTE | 2017-05-13 17:55 | HHI.HP ---
[facility] Maria De Jesus Saavedra M.D. Admission Diagnosis pneumonia. Dental infection. History of metastatic lung cancer Diagnoses: (1) Dental infection Diagnosis: Principal (2) Pneumonia (3) Lung cancer, primary, with metastasis from lung to other site Diagnosis: Principal (4) Brain mass Diagnosis: Secondary (5) Lung tumor Diagnosis: Secondary (6) Brain edema Diagnosis: Secondary Chief Complaint: respiratory distress Travel History International Travel<30 Days: No Contact w/Intl Traveler <30 Da: No Traveled to Known Affected Are: No History of Present Illness 66-year-old female complains of pain and swelling to the right side of face, shortness of breath, bilateral ankle swelling. Patient has history of metastatic lung CA. 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 Patient had infusion of medication yesterday for osteoporosis. Patient does not know the name of that. Patient has been seen by oncologist in the last month for her cancer. Patient had dental procedure done few days ago on the right gum. Patient states that she has increasing pain and swelling of the right side of face since yesterday. Patient also had increasing weakness since yesterday. Patient complaining of shortness of breath this morning. Patient shortness of breath and increased ankle swelling since last night. Patient denies any fever chills. Patient denies any chest pain. Patient denies abdominal pain. Patient denies any nausea vomiting diarrhea. Patient denies any dysuria or frequency. Patient denies any back pain. Was found to have pneumonia. Will be treated with antibiotics will be treated with steroids. Mucinex incentive spirometry as well as fluids and duo nebs Review of Systems Constitutional: COMPLAINS OF: Fatigue, Fever, Dizziness Endocrine: DENIES: Abnorml menstrual pattern, Heat/cold intolerance, Polydipsia Eyes: DENIES: Blurred vision, Diplopia, Eye inflammation, Eye pain, Vision loss Ears, nose, mouth, throat: COMPLAINS OF: Oral lesions, Toothache, DENIES: Tinnitus, Hearing loss, Vertigo, Nasal discharge Cardiovascular: COMPLAINS OF: Dyspnea on Exertion, Lower Extremity Edema, DENIES: Chest pain, Palpitations, Syncope, PND Gastrointestinal: DENIES: Abdominal pain, Black stools, Bloody stools, Constipation, Diarrhea Genitourinary: DENIES: Abnormal vaginal bleeding, Dysmenorrhea Musculoskeletal: DENIES: Joint pain, Muscle aches, Stiffness, Joint Swelling Integumentary: DENIES: Abnormal pigmentation, Pruritus Hematologic/lymphatic: DENIES: Bruising, Lymphadenopathy Immunologic/allergic: DENIES: Eczema, Urticaria Neurologic: COMPLAINS OF: Abnormal gait, Localized weakness, Seizures, DENIES : Headache, Paresthesias, Speech Problems Psychiatric: DENIES: Anxiety, Confusion, Mood changes, Depression, Hallucinations, Agitation Past Family Social History Past Medical History Depression: Yes Cancer: Yes (brain ca with mets to lungs/bone) Cardiovascular Problems: No 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) Genitourinary: No 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) Neurologic: No Reproductive: No Respiratory: Yes (LUNG CANCER) Tubal Ligation: Yes Past Surgical History Appendectomy: Yes Ear Surgery: Yes (RIGHT) Tonsillectomy: Yes Other Surgery: Yes Reported Medications Reported Meds & Active Scripts Active Keppra (Levetiracetam) 500 Mg Tab 500 Mg PO Q12HR Reported Lortab (Hydrocodone-Acetaminophen) 5-325 Mg Tab 1-2 Tab PO Q6H PRN Xanax (Alprazolam) 0.5 Mg Tab 0.5 Mg PO HS PRN Temazepam 15 Mg Cap 15 Mg PO HS PRN Allergies: Coded Allergies: neomycin (Unverified Allergy, Severe, SKIN BREAKDOWN, ITCHING, 05/11/17) Active Ordered Medications Current Medications Sodium Chloride (NS 1000 ml Inj) 1,000 ml @ 100 mls/hr Q10H IV Last administered on 05/13/17 13:14; Start 05/13/17 at 12:45 Morphine Sulfate (Morphine Inj) 2 mg ONCE ONCE IV PUSH Last administered on 13:15; Start 05/13/17 at 12:45; Stop 05/13/17 at 12:49; Status DC Ondansetron HCl 4 mg 4 mg ONCE ONCE IV PUSH Last administered on 05/13/17 13: 15; Start 05/13/17 at 12:45; Stop 05/13/17 at 12:49; Status DC Ampicillin Sodium/ Sulbactam Sodium/ Sodium Chloride (Unasyn Inj/NS Inj) 100 ml @ 200 mls/hr ONCE ONCE IV Last administered on 05/13/17 13:14; Start at 12:45; Stop 05/13/17 at 13:14; Status DC Albuterol/ Ipratropium (Duoneb Neb) 1 ampule ONCE ONCE INH Last administered on 05/13/17 14:35; Start 05/13/17 at 14:15; Stop 05/13/17 at 14:16; Status DC Iohexol 66 ml 66 ml STK-MED ONCE IV ; Start 05/13/17 at 15:24; Stop 05/13/17 at 15:25; Status DC Vancomycin HCl/ Sodium Chloride (Vancomycin Inj/ NS 250 ml Inj) 250 ml @ 250 mls/hr ONCE ONCE IV Last administered on 05/13/17 17:27; Start 05/13/17 at 16 :45; Stop 05/13/17 at 17:44 Alprazolam (Xanax) 0.5 mg HS PRN PO SLEEP; Start 05/13/17 at 17:30; Status UNV Levetriacetam (Keppra) 500 mg Q12HR PO ; Start 05/13/17 at 21:00; Status UNV Temazepam (Restoril) 15 mg HS PRN PO INSOMNIA; Start 05/13/17 at 17:30; Status UNV Family History Tobacco abuse Social History Denies any current tobacco alcohol or illicits had a history of tobacco abuse Physical Exam Vital Signs Vital Signs Date Time Temp Pulse Resp B/P Pulse Ox O2 Delivery O2 Flow Rate FiO2 05/13/17 13:59 101 141/63 93 Nasal Cannula 1.5 05/13/17 13:30 18 05/13/17 13:17 86 18 113/52 93 Nasal Cannula 05/13/17 12:27 100.0 05/13/17 11:36 98.8 111 23 115/56 94 Physical Exam GENERAL: This is a well-nourished, well-developed patient, in no apparent distress. SKIN: No rashes, ecchymoses or lesions. Cool and dry. HEAD: Atraumatic. Normocephalic. No temporal or scalp tenderness. EYES: Pupils equal round and reactive. Extraocular motions intact. No scleral icterus. No injection or drainage. ENT: Nose without bleeding, purulent drainage or septal hematoma. Throat without erythema, tonsillar hypertrophy or exudate. Uvula midline. Airway patent. Right side of her face is swollen and tender tongue is midline NECK: Trachea midline. No JVD or lymphadenopathy. Supple, nontender, no meningeal signs. CARDIOVASCULAR: Regular rate and rhythm without murmurs, gallops, or rubs. S1 and S2 no S3 or S4 no heave or thrill or rub or gallop RESPIRATORY: Coarse breath sounds bilaterally. Breath sounds equal bilaterally. Scattered rhonchi and wheezes. GASTROINTESTINAL: Abdomen soft, non-tender, nondistended. No hepato-splenomegaly , or palpable masses. No guarding. MUSCULOSKELETAL: Extremities without clubbing, cyanosis, or edema. No joint tenderness, effusion, or edema noted. No calf tenderness. Negative Homans sign bilaterally. NEUROLOGICAL: Awake and alert. Cranial nerves II through XII intact. Motor and sensory grossly within normal limits. Five out of 5 muscle strength in all muscle groups. Normal speech. Insight and judgment are good Mood and behavior are appropriate Laboratory Laboratory Tests Test 05/13/17 05/13/17 12:45 13:00 White Blood Count 6.1 Red Blood Count 4.49 Hemoglobin 13.2 Hematocrit 40.2 Mean Corpuscular Volume 89.5 Mean Corpuscular Hemoglobin 29.5 Mean Corpuscular Hemoglobin 32.9 Concent Red Cell Distribution Width 14.8 Platelet Count 179 Mean Platelet Volume 7.0 Neutrophils (%) (Auto) 79.7 Lymphocytes (%) (Auto) 8.1 Monocytes (%) (Auto) 10.5 Eosinophils (%) (Auto) 1.3 Basophils (%) (Auto) 0.4 Neutrophils # (Auto) 4.9 Lymphocytes # (Auto) 0.5 Monocytes # (Auto) 0.6 Eosinophils # (Auto) 0.1 Basophils # (Auto) 0.0 CBC Comment DIFF FINAL Differential Comment Prothrombin Time 10.0 Prothromb Time International 0.9 Ratio Activated Partial 26.8 Thromboplast Time Sodium Level 130 Potassium Level 4.0 Chloride Level 99 Carbon Dioxide Level 23.4 Anion Gap 8 Blood Urea Nitrogen 8 Creatinine 0.45 Estimat Glomerular Filtration 139 Rate Random Glucose 133 Lactic Acid Level 2.1 Calcium Level 8.1 Total Bilirubin 0.6 Aspartate Amino Transf 12 (AST/SGOT) Alanine Aminotransferase 20 (ALT/SGPT) Alkaline Phosphatase 53 B-Type Natriuretic Peptide 32 Total Protein 5.8 Albumin 2.4 Urine Color YELLOW Urine Turbidity CLEAR Urine pH 6.0 Urine Specific [place] 1.018 Urine Protein TRACE Urine Glucose (UA) 300 Urine Ketones NEG Urine Occult Blood NEG Urine Nitrite NEG Urine Bilirubin NEG Urine Urobilinogen LESS THAN 2.0 Urine Leukocyte Esterase NEG Urine RBC LESS THAN 1 Urine WBC 1 Urine Squamous Epithelial <1 Cells Urine Mucus FEW Microscopic Urinalysis Comment CULT NOT INDICATED Date/Time Procedure Status Source Growth 05/13/17 12:50 Aerobic Blood Culture Received Blood Peripheral Pending 05/13/17 12:50 Anaerobic Blood Culture Received Blood Peripheral Pending Result Diagram: 05/13/17 1245 05/13/17 1245 Assessment and Plan Problem List: (1) Dental infection ICD Code: K04.7 Status: Acute (2) Pneumonia ICD Code: J18.9 Status: Acute (3) Lung cancer, primary, with metastasis from lung to other site ICD Code: C34.90 Status: Acute (4) Brain mass ICD Code: G93.9 Status: Acute (5) Brain edema ICD Code: G93.6 Status: Acute (6) Lung tumor ICD Code: D49.1 Status: Acute Assessment and Plan Pneumonia. We'll treat with antibiotics as well as Mucinex as well as duo nebs and steroids oxygen incentive spirometry Recent right gum surgery. Now his facial swelling on the right side of her face the antibiotics that I have her on will cover this also. History of tobacco abuse smoking cessation recommended Lung cancer under the care of [facility] of oncology History of lung cancer with brain metastases and metastases to the bone Has undergone gamma knife to the brain by Dr. Love at [facility] Deconditioning Will ask physical therapy and occupational therapy to eval and treat A.m. labs Consult pulmonary and consult case management Physician Certification 2 Midnight Certification Type: Admission for Inpatient Services Order for Inpatient Services The services are ordered in accordance with Medicare regulations or non- Medicare payer requirements, as applicable. In the case of services not specified as inpatient-only, they are appropriately provided as inpatient services in accordance with the 2-midnight benchmark. Estimated LOS (days): 4 4 days is the estimated time the patient will need to remain in the hospital, assuming treatment plan goals are met and no additional complications. Post-Hospital Plan: Not yet determined Problem Qualifiers (1) Pneumonia: Qualified Code: J18.1 - Pneumonia of left lower lobe due to infectious organism Ariel Harley DO May 13, 2017 17:55
[2017-05-13] MEDS: methylPREDNISolone SOD SUCC 40 MG/1 ML VIAL IV SCH (18:00)
[2017-05-13] MEDS ORDERED: PANTOPRAZOLE SOD 40 MG DELAYED RELEASE TAB PO ONE (18:00)
[2017-05-13] MEDS ORDERED: VANCOMYCIN 1,000 MG/NS 250 ML IV ONE ×2 (18:30)
[2017-05-13] MEDS: SODIUM CHLOR 0.9% 1000 ML INJ 1,000 ML IV SCH (18:54)
[2017-05-13] MEDS: AZITHROMYCIN INJ 500 MG in SODIUM CHLOR 0.9% 250 ML INJ 250 ML IV SCH (20:49)
[2017-05-13] MEDS: ENOXAPARIN SODIUM 40 MG/0.4 ML SYRINGE SQ SCH (20:50)
[2017-05-13] MEDS: BUDESONIDE-FORMOTEROL 160/4.5 MCG INHALER INH SCH (21:00)
[2017-05-13] MEDS: SODIUM CHLORIDE 0.9% FLUSH 10 ML FLUSH IV FLUSH SCH (21:00)
[2017-05-13] MEDS: DOCUSATE SODIUM 50 MG/SENNA 8.6 MG TAB PO SCH (21:00)
[2017-05-13] MEDS ORDERED: SODIUM CHLORIDE 0.9% FLUSH 10 ML FLUSH IV FLUSH SCH (21:00)
[2017-05-13] MEDS: RESP: ALBUTEROL 2.5 MG/IPRATROPIUM 0.5 MG NEB (PRN) INH (21:40)
[2017-05-13] MEDS: PIPERACIL-TAZO 4.5 GM PREMIX 100 ML IV SCH (21:53)
[2017-05-13] MEDS ORDERED: FUROSEMIDE 20 MG/2 ML VIAL IV PUSH ONE (22:30)
[2017-05-13] MEDS: TEMAZEPAM 15 MG CAP PO PRN (23:00)
[2017-05-13] MEDS: guaiFENesin E.R. 600 MG TAB PO SCH (23:00)
[2017-05-13] MEDS: levETIRAcetam 500 MG TAB PO SCH (23:00)
[2017-05-14] VITALS (12 sets, daily range): BP systolic 92–116; BP diastolic 44–57; PULSE 81–109; RESP 16–24; TEMP 96.5–99.4; O2SAT 92–98
[2017-05-14] MEDS: PIPERACIL-TAZO 4.5 GM PREMIX 100 ML IV SCH ×4 (00:52→22:09)
[2017-05-14] MEDS: RESP: ALBUTEROL 2.5 MG/IPRATROPIUM 0.5 MG NEB (PRN) INH ×3 (04:19→22:26)
[2017-05-14] MEDS: VANCOMYCIN INJ 750 MG in SODIUM CHLOR 0.9% 250 ML INJ 250 ML IV SCH ×2 (05:18→16:50)
[2017-05-14] MEDS: methylPREDNISolone SOD SUCC 40 MG/1 ML VIAL IV SCH ×2 (05:20→20:34)
--- NOTE | 2017-05-14 05:43 | MB ---
cc: BOGDAN ABBOTT DATE OF CONSULTATION 05/13/2017 AGE 66 REASON FOR CONSULTATION History of lung cancer and COPD. HISTORY OF PRESENT ILLNESS This is 66-year-old white female with a prior history of metastatic carcinoma of the lung, has been evaluated extensively at the [facility] and also by the oncology group in [place] and has been on a cancer chemotherapy protocol. The patient apparently has been diagnosed to have metastatic disease to the brain and over the past several days she had noticed swelling on the right side of the face and also pain along the jaw radiating into the right ear and the patient was having some trouble with cough and then hoarseness and postnasal drip and thus was seen in the emergency room and now has been admitted. The patient denies any hemoptysis. She has been on oxygen at 2 liters. She complains of pain along the right arm radiating down the elbow and has noticed some increased swelling of the right side of her face. Presently she is on 2 liters of oxygen maintaining a saturation of over 95%. She is not running any fever and she denies chest or abdominal pain and denies any diarrhea or GI bleed. Her chest x-ray that was done showed evidence of a large left lung density consistent with her previous diagnosis of lung cancer as well as areas of atelectasis in the lower lung zones. PAST MEDICAL HISTORY 1. History of COPD. 2. History of herniated disk in the neck. 3. Prior history of non-small cell lung cancer with metastasis to the brain and recently found to have some abdominal metastasis. 4. Metastasis to the abdomen as well as the bones. 5. She also has had a history of cholesteatoma of the right ear and previous ear surgery. 6. Appendectomy. 7. Tonsillectomy in the past. 8. Tubal ligation. HABITS The patient does not smoke presently but has smoked for over 30 years in the past. No significant alcohol use. ALLERGIES NEOMYCIN. FAMILY HISTORY Noncontributory. MED LIST 1. DuoNeb solution with a nebulizer t.i.d. 1. Unasyn injection 3 grams IV q. 8. 2. Vancomycin IV. 3. Xanax 0.5 mg h.s. 4. Keppra 500 mg b.i.d. 5. Restoril 15 mg at bedtime. SYSTEMS REVIEW The patient has lost weight. She has headaches. She has pain in her right jaw and the ear. She has swelling around the neck and jaw on the right side. She has trouble with swallowing but her appetite is fairly clear. No epigastric distress and no nausea, vomiting, no urinary symptoms. No leg or calf muscle pains. She has some joint pains and neck pain. PHYSICAL EXAMINATION GENERAL: This elderly, thinly built white female who appears ill. VITAL SIGNS: Blood pressure 138 x 60, pulse 105, respirations are 20, temperature is 99. HEENT: Head normocephalic. Pupils are reactive. Tongue is dry. Throat is injected. Ears - no inflammation. NECK: Supple. No lymphadenopathy. No bruits. Trachea midline. CHEST: Equal movements with distant breath sounds. Occasional wheezes are heard throughout both lung mariano. Prolonged expirations. There are crackles over the left mid-chest. HEART: The heart sounds are irregular. S1, S2. No murmur. No S3. ABDOMEN: The abdomen is soft, scaphoid. No masses or organomegaly. Bowel sounds are faint. LYMPHATICS: Examination of the neck reveals swelling along the angle of the jaw on the right side and mild and lymphadenopathy. There is no axillary or inguinal adenopathy. EXTREMITIES: No edema. Mild muscle wasting. NEUROLOGIC: Reflexes 1+ with no gross motor deficits. RECTAL: Exam deferred. SKIN: No lesions. IMPRESSION 1. Metastatic carcinoma of the lung with cerebral and bone metastasis. 2. Left lung pneumonia and lung CA. 3. COPD. 4. Depression and anxiety. 5. Right jaw swelling. PLAN 1. The patient is presently on antibiotic coverage including Unasyn which we could continue. 2. She will be placed on O2 at 3 liters nasal cannula to maintain sats over 92. 3. A CT scan of the chest to be obtained loss. 4. She will be placed on Symbicort 160/4.5, two puffs twice daily. 5. Nebulized DuoNeb solution four times a day. 6. The patient has been advised by her oncologist to stay off of steroids since they are going to start her on immunotherapy for her lung cancer. 7. Sputum will be sent for Gram's stain and culture as well. Thank you Dr. Gutierrez for this consultation. Bogdan Abbott MD JVD/SSB /11:23 PM /5:21 AM
[2017-05-14] MEDS: PANTOPRAZOLE SOD 40 MG DELAYED RELEASE TAB PO SCH (09:00)
[2017-05-14] MEDS: BUDESONIDE-FORMOTEROL 160/4.5 MCG INHALER INH SCH ×3 (09:00→22:10)
--- NOTE | 2017-05-14 09:17 | EKG ---
Date Performed: 05/13/2017 Time Performed: 13:57:09 PTAGE: 66 years EKG: Sinus rhythm NORMAL ECG PREVIOUS TRACING : 04/09/2017 12.58 Compared to prior tracing no significant change DOCTOR: Heri Alvarez Interpretating Date/Time 05/14/2017 09:15:59
[2017-05-14] MEDS: DOCUSATE SODIUM 50 MG/SENNA 8.6 MG TAB PO SCH ×2 (09:26→20:35)
[2017-05-14] MEDS: levETIRAcetam 500 MG TAB PO SCH ×2 (09:26→20:34)
[2017-05-14] MEDS: guaiFENesin E.R. 600 MG TAB PO SCH ×2 (09:26→20:34)
[2017-05-14] MEDS: SODIUM CHLORIDE 0.9% FLUSH 10 ML FLUSH IV FLUSH SCH ×2 (09:28→20:43)
[2017-05-14 09:34] LABS: AUTOMATED NEUTROPHIL # 4.8 TH/MM3 (1.8-7.7); BASOPHIL % 0.5 % (0.0-2.0); EOSINOPHIL # 0.1 TH/MM3 (0-0.4); EOSINOPHIL % 1.5 % (0.0-4.0); HEMATOCRIT 35.7 % (35.0-46.0); HEMO FLAGS DIFF FINAL; LYMPH % 7.7 % (9.0-44.0); LYMPHOCYTE # 0.5 TH/MM3 (1.0-4.8); MEAN CELL VOLUME 88.4 FL (80.0-100.0); MEAN CORPUSCULAR HEMOGLOBIN 30.1 PG (27.0-34.0); MONO % 9.6 % (0.0-8.0); NEUT % 80.7 % (16.0-70.0); PLATELET COUNT 166 TH/MM3 (150-450); RED BLOOD COUNT 4.04 MIL/MM3 (4.00-5.30); RED CELL DISTRIBUTION WIDTH 14.8 % (11.6-17.2)
[2017-05-14 09:44] LABS: ALT (GPT) 20 U/L (10-53); ANION GAP 5 MEQ/L (5-15); AST (GOT) 11 U/L (15-37); BICARBONATE 32.4 MEQ/L (21.0-32.0); BLOOD UREA NITROGEN 5 MG/DL (7-18); CHLORIDE 97 MEQ/L (98-107); GLOMERULAR FILTRATION RATE 101 ML/MIN (>89); MAGNESIUM 2.1 MG/DL (1.5-2.5); POTASSIUM 4.1 MEQ/L (3.5-5.1); SODIUM (NA) 134 MEQ/L (136-145)
[2017-05-14 09:50] LABS: ALKALINE PHOSPHATASE 51 U/L (45-117); CALCIUM-PROTEIN CORRECTED 8.1 MG/DL (8.5-10.1); FREE T4 1.21 NG/DL (0.76-1.46); TOTAL BILIRUBIN ADULT 0.6 MG/DL (0.2-1.0)
[2017-05-14] MEDS: SODIUM CHLOR 0.9% 1000 ML INJ 1,000 ML IV SCH (09:56)
--- NOTE | 2017-05-14 10:49 | HHI.PR ---
Subjective Remarks 66-year-old female complains of pain and swelling to the right side of face, shortness of breath, bilateral ankle swelling. Patient has history of metastatic lung CA. 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 Patient had infusion of medication yesterday for osteoporosis. Patient does not know the name of that. Patient has been seen by oncologist in the last month for her cancer. Patient had dental procedure done few days ago on the right gum. Patient states that she has increasing pain and swelling of the right side of face since yesterday. Patient also had increasing weakness since yesterday. Patient complaining of shortness of breath this morning. Patient shortness of breath and increased ankle swelling since last night. Patient denies any fever chills. Patient denies any chest pain. Patient denies abdominal pain. Patient denies any nausea vomiting diarrhea. Patient denies any dysuria or frequency. Patient denies any back pain. Was found to have pneumonia. Will be treated with antibiotics will be treated with steroids. Mucinex incentive spirometry as well as fluids and duo nebs 05-14 discussion with patient and RN daughter and . Patient's primary care physician is Dr. Maria De Jesus Saavedra Her oncologist here is Current oncologist in [place] is Dr. ANN Had refused steroids yesterday. We'll make sure she gets steroids today and is on a scheduled IV treatment wIll consult physical therapy occupational therapy and speech therapy Patient needs swallow eval to make sure she is not aspirating Objective Vitals Vital Signs Date Time Temp Pulse Resp B/P Pulse Ox O2 Delivery O2 Flow Rate FiO2 05/14/17 08:59 98 Nasal Cannula 3.00 05/14/17 08:00 99.4 93 24 116/50 92 05/14/17 04:20 98 Nasal Cannula 3.00 05/14/17 04:00 99.4 94 16 107/44 98 05/14/17 01:00 81 05/14/17 00:00 98.6 93 18 103/57 98 05/13/17 21:29 99.6 109 16 118/67 96 05/13/17 20:34 92 20 136/58 95 Nasal Cannula 3 05/13/17 18:55 107 24 133/61 94 Nasal Cannula 3 05/13/17 13:59 101 141/63 93 Nasal Cannula 1.5 05/13/17 13:30 18 05/13/17 13:17 86 18 113/52 93 Nasal Cannula 05/13/17 12:27 100.0 05/13/17 11:36 98.8 111 23 115/56 94 I/O 05/13/17 05/13/17 05/13/17 05/14/17 05/14/17 05/14/17 06:59 14:59 22:59 06:59 14:59 22:59 Intake Total 165 ml Balance 165 ml Intake Oral 150 ml IV Total 15 ml # Voids 1 1 # Bowel Movements 0 Result Diagram: 05/14/17 0730 05/14/17 0736 Other Results Laboratory Tests Test 05/13/17 05/13/17 05/13/17 05/14/17 12:45 13:00 20:13 07:30 White Blood Count 6.1 TH/MM3 6.0 TH/MM3 Red Blood Count 4.49 MIL/MM3 4.04 MIL/MM3 Hemoglobin 13.2 GM/DL 12.1 GM/DL Hematocrit 40.2 % 35.7 % Mean Corpuscular Volume 89.5 FL 88.4 FL Mean Corpuscular Hemoglobin 29.5 PG 30.1 PG Mean Corpuscular Hemoglobin 32.9 % 34.0 % Concent Red Cell Distribution Width 14.8 % 14.8 % Platelet Count 179 TH/MM3 166 TH/MM3 Mean Platelet Volume 7.0 FL 7.7 FL Neutrophils (%) (Auto) 79.7 % 80.7 % Lymphocytes (%) (Auto) 8.1 % 7.7 % Monocytes (%) (Auto) 10.5 % 9.6 % Eosinophils (%) (Auto) 1.3 % 1.5 % Basophils (%) (Auto) 0.4 % 0.5 % Neutrophils # (Auto) 4.9 TH/MM3 4.8 TH/MM3 Lymphocytes # (Auto) 0.5 TH/MM3 0.5 TH/MM3 Monocytes # (Auto) 0.6 TH/MM3 0.6 TH/MM3 Eosinophils # (Auto) 0.1 TH/MM3 0.1 TH/MM3 Basophils # (Auto) 0.0 TH/MM3 0.0 TH/MM3 CBC Comment DIFF FINAL DIFF FINAL Differential Comment Prothrombin Time 10.0 SEC Prothromb Time International 0.9 RATIO Ratio Activated Partial 26.8 SEC Thromboplast Time Sodium Level 130 MEQ/L Potassium Level 4.0 MEQ/L Chloride Level 99 MEQ/L Carbon Dioxide Level 23.4 MEQ/L Anion Gap 8 MEQ/L Blood Urea Nitrogen 8 MG/DL Creatinine 0.45 MG/DL Estimat Glomerular Filtration 139 ML/MIN Rate Random Glucose 133 MG/DL Lactic Acid Level 2.1 mmol/L 1.4 mmol/L Calcium Level 8.1 MG/DL Total Bilirubin 0.6 MG/DL Aspartate Amino Transf 12 U/L (AST/SGOT) Alanine Aminotransferase 20 U/L (ALT/SGPT) Alkaline Phosphatase 53 U/L B-Type Natriuretic Peptide 32 PG/ML Total Protein 5.8 GM/DL Albumin 2.4 GM/DL Urine Color YELLOW Urine Turbidity CLEAR Urine pH 6.0 Urine Specific [place] 1.018 Urine Protein TRACE mg/dL Urine Glucose (UA) 300 mg/dL Urine Ketones NEG mg/dL Urine Occult Blood NEG Urine Nitrite NEG Urine Bilirubin NEG Urine Urobilinogen LESS THAN 2.0 MG/DL Urine Leukocyte Esterase NEG Urine RBC LESS THAN 1 /hpf Urine WBC 1 /hpf Urine Squamous Epithelial <1 /hpf Cells Urine Mucus FEW /lpf Microscopic Urinalysis Comment CULT NOT INDICATED Test 05/14/17 07:36 Sodium Level 134 MEQ/L Potassium Level 4.1 MEQ/L Chloride Level 97 MEQ/L Carbon Dioxide Level 32.4 MEQ/L Anion Gap 5 MEQ/L Blood Urea Nitrogen 5 MG/DL Creatinine 0.59 MG/DL Estimat Glomerular Filtration 101 ML/MIN Rate Random Glucose 130 MG/DL Calcium Level 7.3 MG/DL Protein Corrected Calcium 8.1 MG/DL Phosphorus Level 2.2 MG/DL Magnesium Level 2.1 MG/DL Total Bilirubin 0.6 MG/DL Aspartate Amino Transf 11 U/L (AST/SGOT) Alanine Aminotransferase 20 U/L (ALT/SGPT) Alkaline Phosphatase 51 U/L Total Protein 5.6 GM/DL Albumin 2.2 GM/DL Free Thyroxine 1.21 NG/DL Thyroid Stimulating Hormone 0.724 uIU/ML 3rd Gen Imaging Last Impressions CT Angiography 05/13/17 1249 Signed Impressions: Service Date/Time: April 15:04 - CONCLUSION: 1. No evidence of pulmonary embolism. 2. Mild interval increase in size of the known large left upper lobe tumor mass. 3. New focal air consolidative opacity along the lateral left lower lobe which may represent tumor versus post obstructive pneumonia. 4. Small amount of pericardial fluid. 5. No spinal or hilar adenopathy is again noted. 6. New small bilateral pleural effusions right greater than left. Randy Edwards MD Chest X-Ray 05/13/17 1240 Signed Impressions: Service Date/Time: , May 13, 2017 13:07 - CONCLUSION: 1. Unchanged masslike consolidation within the left upper lobe. 2. No consolidation within the peripheral aspects of the left lower lobe. Alverto Orr Jr., MD Maxillofacial CT 05/13/17 0000 Signed Impressions: Service Date/Time: , May 13, 2017 15:01 - CONCLUSION: 1. Streak artifact from multiple dental fillings in the mandible and maxilla. 2. The bony structures otherwise intact with no evidence of metastatic disease. 3. The known metastatic lesion in right parietal lobe is faintly visualized. Randy Edwards MD Objective Remarks GENERAL: This is a cachectic, well-developed patient, in moderate apparent distress. Somewhat lethargic today SKIN: No rashes, ecchymoses or lesions. Cool and dry. HEAD: Atraumatic. Normocephalic. No temporal or scalp tenderness. EYES: Pupils equal round and reactive. Extraocular motions intact. No scleral icterus. No injection or drainage. ENT: Nose without bleeding, purulent drainage or septal hematoma. Throat without erythema, tonsillar hypertrophy or exudate. Uvula midline. Airway patent. Right side of her face is swollen and tender tongue is midline NECK: Trachea midline. No JVD or lymphadenopathy. Supple, nontender, no meningeal signs. CARDIOVASCULAR: Regular rate and rhythm without murmurs, gallops, or rubs. S1 and S2 no S3 or S4 no heave or thrill or rub or gallop RESPIRATORY: Coarse breath sounds bilaterally. Breath sounds equal bilaterally. Scattered rhonchi and wheezes. GASTROINTESTINAL: Abdomen soft, non-tender, nondistended. No hepato-splenomegaly , or palpable masses. No guarding. MUSCULOSKELETAL: Extremities without clubbing, cyanosis, or edema. No joint tenderness, effusion, or edema noted. No calf tenderness. Negative Homans sign bilaterally. NEUROLOGICAL: Awake and alert. Cranial nerves II through XII intact. Motor and sensory grossly within normal limits. Five out of 5 muscle strength in all muscle groups. Normal speech. Insight and judgment are limited to illness Mood and behavior are somewhat INappropriate Medications and IVs Current Medications Sodium Chloride (NS 1000 ml Inj) 1,000 ml @ 100 mls/hr Q10H IV Last administered on 05/13/17 13:14; Start 05/13/17 at 12:45; Stop 05/13/17 at 18:03 ; Status DC Morphine Sulfate (Morphine Inj) 2 mg ONCE ONCE IV PUSH Last administered on 13:15; Start 05/13/17 at 12:45; Stop 05/13/17 at 12:49; Status DC Ondansetron HCl 4 mg 4 mg ONCE ONCE IV PUSH Last administered on 05/13/17 13: 15; Start 05/13/17 at 12:45; Stop 05/13/17 at 12:49; Status DC Ampicillin Sodium/ Sulbactam Sodium/ Sodium Chloride (Unasyn Inj/NS Inj) 100 ml @ 200 mls/hr ONCE ONCE IV Last administered on 05/13/17 13:14; Start at 12:45; Stop 05/13/17 at 13:14; Status DC Albuterol/ Ipratropium (Duoneb Neb) 1 ampule ONCE ONCE INH Last administered on 05/13/17 14:35; Start 05/13/17 at 14:15; Stop 05/13/17 at 14:16; Status DC Iohexol 66 ml 66 ml STK-MED ONCE IV ; Start 05/13/17 at 15:24; Stop 05/13/17 at 15:25; Status DC Vancomycin HCl/ Sodium Chloride (Vancomycin Inj/ NS 250 ml Inj) 250 ml @ 250 mls/hr ONCE ONCE IV Last administered on 05/13/17 17:27; Start 05/13/17 at 16 :45; Stop 05/13/17 at 17:44; Status DC Alprazolam (Xanax) 0.5 mg HS PRN PO SLEEP; Start 05/13/17 at 17:30 Levetriacetam (Keppra) 500 mg Q12HR PO Last administered on 05/14/17 09:26; Start 05/13/17 at 21:00 Temazepam 15 mg 15 mg HS PRN PO INSOMNIA Last administered on 8/17/17at 23:00; Start 05/13/17 at 17:30 Sodium Chloride (NS 1000 ml Inj) 1,000 ml @ 100 mls/hr Q10H IV Last administered on 05/14/17t 09:56; Start 05/13/17 at 17:32 Sodium Chloride (NS Flush) 2 ml UNSCH PRN IV FLUSH FLUSH AFTER USING IV ACCESS ; Start 05/13/17 at 17:45; Stop 05/13/17 at 18:02; Status DC Sodium Chloride (NS Flush) 2 ml BID IV FLUSH ; Start 05/13/17 at 21:00; Stop at 21:00; Status DC Acetaminophen (Tylenol) 650 mg Q4H PRN PO TEMP > 100.4; Start 05/13/17 at 17:45 Ondansetron HCl (Zofran Inj) 4 mg Q6H PRN IVP NAUSEA OR VOMITING; Start at 17:45 Metoclopramide HCl (Reglan Inj) 5 mg Q6H PRN IV PUSH NAUSEA OR VOMITING; Start 05/13/17 at 17:45 Prochlorperazine (Compazine Supp) 25 mg Q12H PRN RECTAL NAUSEA OR VOMITING; Start 05/13/17 at 17:45 Enoxaparin Sodium (Lovenox Inj) 40 mg Q24H SQ Last administered on 05/13/17t 20 :50; Start 05/13/17 at 20:00 Acetaminophen (Tylenol) 650 mg Q6H PRN PO PAIN SCALE 1 TO 2; Start 05/13/17 at 17:45 Acetaminophen/ Hydrocodone Bitart ([place] 5-325 Mg) 1 tab Q4H PRN PO PAIN SCALE 3 TO 5; Start 05/13/17 at 17:45 Acetaminophen/ Hydrocodone Bitart ([place] 10-325 Mg) 1 tab Q4H PRN PO PAIN SCALE 6 TO 10; Start 05/13/17 at 17:45 Morphine Sulfate (Morphine Inj) 2 mg Q3H PRN IV Pain 3-5; if unable to take PO ; Start 05/13/17 at 17:45 Morphine Sulfate (Morphine Inj) 4 mg Q3H PRN IV Pain 6-10;if unable to take PO ; Start 05/13/17 at 17:45 Naloxone HCl (Narcan Inj) 0.4 mg UNSCH PRN IV SEE LABEL COMMENTS; Start at 17:45 Senna/Docusate Sodium (Chandni-Colace) 1 tab BID PO Last administered on 09:26; Start 05/13/17 at 21:00 Magnesium Hydroxide (Milk Of Magnesia Liq) 30 ml Q12H PRN PO MILD - MODERATE CONSTIPATION; Start 05/13/17 at 17:45 Sennosides (Senokot) 17.2 mg Q12H PRN PO MODERATE - SEVERE CONSTIPATION; Start 05/13/17 at 17:45 Bisacodyl (Dulcolax Supp) 10 mg DAILY PRN RECTAL SEVERE CONSITIPATION; Start at 17:45 Lactulose (Lactulose Liq) 30 ml DAILY PRN PO SEVERE CONSITIPATION; Start at 17:45 Sodium Chloride (NS Flush) 2 ml UNSCH PRN IV FLUSH FLUSH AFTER USING IV ACCESS ; Start 05/13/17 at 17:45 Sodium Chloride 2 ml 2 ml BID IV FLUSH Last administered on 05/14/17 09:28; Start 05/13/17 at 21:00 Piperacillin Sod/ Tazobactam Sod 100 ml @ 200 mls/hr Q6H IV Last administered on 05/14/17 09:27; Start 05/13/17 at 20:00 Azithromycin 500 mg/Sodium Chloride 250 ml @ 250 mls/hr Q24H IV Last administered on 05/13/17 20:49; Start 05/13/17 at 20:00 Pharmacy Profile Note (Vancomycin Consult Pharmacy) 0 ml @ 0 mls/hr UNSCH OTHER ; Start 05/13/17 at 17:45 Albuterol/ Ipratropium (Duoneb Neb) 1 ampule Q4HR NEB PRN INH SHORTNESS OF BREATH Last administered on 05/14/17 10:12; Start 05/13/17 at 17:45 Methylprednisolone Sodium Succinate (SoluMEDROL INJ) 40 mg Q12H IV ; Start 05/13 at 18:00 Guaifenesin (Mucinex Er) 600 mg BID PO Last administered on 05/14/17 09:26; Start 05/13/17 at 21:00 Pantoprazole Sodium (Protonix) 40 mg ONCE ONCE PO Last administered on 18:54; Start 05/13/17 at 18:00; Stop 05/13/17 at 18:12; Status DC Pantoprazole Sodium 40 mg 40 mg DAILY PO ; Start 05/14/17 at 09:00 Vancomycin HCl 1000 mg/Sodium Chloride 250 ml @ 250 mls/hr ONCE ONCE IV ; Start 05/13/17 at 18:30; Stop 05/13/17 at 19:29; Status DC Vancomycin HCl/ Sodium Chloride (Vancomycin Inj/ NS 250 ml Inj) 257.5 ml @ 250 mls/hr Q12H IV Last administered on 05/14/17 05:18; Start 05/14/17 at 05:00 Miscellaneous Information SPECIFIC LAB TO BE ... ONCE ONCE .XX ; Start 05/15 at 04:45; Stop 05/15/17 at 04:46 Budesonide/ Formoterol Fumarate (Symbicort 160-4.5 Inh) 2 puff Q12HR INH ; Start 05/13/17 at 21:00 Furosemide (Lasix Inj) 20 mg ONCE ONCE IV PUSH Last administered on 05/14/17 05:25; Start 05/13/17 at 22:30; Stop 05/13/17 at 22:31; Status DC A/P Problem List: (1) Dental infection ICD Code: K04.7 Status: Acute (2) Pneumonia ICD Code: J18.9 Status: Acute (3) Lung cancer, primary, with metastasis from lung to other site ICD Code: C34.90 Status: Acute (4) Brain mass ICD Code: G93.9 Status: Acute (5) Brain edema ICD Code: G93.6 Status: Acute (6) Lung tumor ICD Code: D49.1 Status: Acute Assessment and Plan Pneumonia. We'll treat with antibiotics as well as Mucinex as well as duo nebs and steroids oxygen incentive spirometry Recent right gum surgery. Now his facial swelling on the right side of her face the antibiotics that I have her on will cover this also. History of tobacco abuse smoking cessation recommended Lung cancer under the care of Kvng Stokes of oncology AT [facility] History of lung cancer with brain metastases and metastases to the bone Has undergone gamma knife to the brain by Dr. Love at [facility] Deconditioning Will ask physical therapy and occupational therapy to eval and treat A.m. labs Consult pulmonary and consult case management Discussion with family. May be interested in hospice We will ask palliative care consult Problem Qualifiers (1) Pneumonia: Qualified Code: J18.1 - Pneumonia of left lower lobe due to infectious organism Ariel Harley DO May 14, 2017 10:49
[2017-05-14] MEDS ORDERED: methylPREDNISolone SOD SUCC 40 MG/1 ML VIAL IV ONE (11:00)
--- NOTE | 2017-05-14 12:14 | HHI.PR ---
Subjective Remarks C/O some jaw pain. SOB and some cough. No fever. Has oral thrush Objective Vital Signs Date Time Temp Pulse Resp B/P Pulse Ox O2 Delivery O2 Flow Rate FiO2 05/14/17 08:59 98 Nasal Cannula 3.00 05/14/17 08:00 99.4 93 24 116/50 92 05/14/17 04:20 98 Nasal Cannula 3.00 05/14/17 04:00 99.4 94 16 107/44 98 05/14/17 01:00 81 05/14/17 00:00 98.6 93 18 103/57 98 05/13/17 21:29 99.6 109 16 118/67 96 05/13/17 20:34 92 20 136/58 95 Nasal Cannula 3 05/13/17 18:55 107 24 133/61 94 Nasal Cannula 3 05/13/17 13:59 101 141/63 93 Nasal Cannula 1.5 05/13/17 13:30 18 05/13/17 13:17 86 18 113/52 93 Nasal Cannula 05/13/17 12:27 100.0 I/O 05/13/17 05/13/17 05/13/17 05/14/17 05/14/17 05/14/17 06:59 14:59 22:59 06:59 14:59 22:59 Intake Total 165 ml 400 ml Balance 165 ml 400 ml Intake Oral 150 ml 400 ml IV Total 15 ml # Voids 1 2 # Bowel Movements 0 Result Diagram: 05/14/17 0730 05/14/17 0736 Objective Remarks GENERAL: This elderly, thinly built white female who appears ill. HEENT: Head normocephalic. Pupils are reactive. Tongue is dry. Throat is injected. Ears - no inflammation.Right neck tenderness/ Swelling NECK: Supple. No lymphadenopathy. No bruits. Trachea midline. CHEST: Equal movements with distant breath sounds. Occasional wheezes are heard throughout both lung mariano. Prolonged expirations. There are crackles over the left mid-chest. HEART: The heart sounds are irregular. S1, S2. No murmur. No S3. ABDOMEN: The abdomen is soft, scaphoid. No masses or organomegaly. Bowel sounds are faint. LYMPHATICS: Examination of the neck reveals swelling along the angle of the jaw on the right side and mild and lymphadenopathy. There is no axillary or inguinal adenopathy. EXTREMITIES: No edema. Mild muscle wasting. NEUROLOGIC: Reflexes 1+ with no gross motor deficits. RECTAL: Exam deferred. SKIN: No lesions. Assessment and Plan Assessment and Plan IMPRESSION 1. Metastatic carcinoma of the lung with cerebral and bone metastasis. 2. Left lung pneumonia and lung CA. 3. COPD. 4. Depression and anxiety. 5. Right jaw swelling. Plan : 1. Cont Antibiotics Unasyn, Vanco 2. O2 at 3 L. 3. Solumedrol 40 mg IV q6h and taper. 4. Nebs qid , duoneb 5. Magic mouthwash 10 CC qid. 6. CBC,BMP in am 7. Palliative care to see. Matheus Abbott MD May 14, 2017 12:14
--- NOTE | 2017-05-14 12:27 | OTSOAPIP ---
ATTEMPTED TO SEE PATIENT FOR OCCUPATIONAL THERAPY EVALUATION X 2 . PATIENT WITH OTHER DISCIPLINES ON BOTH OCCASIONS. WILL ATTEMPT AGAIN IF ABLE THIS DATE, OTHERWISE WILL FOLLOW UP WITH PATIENT NEXT DAY FOR EVALUATION. INTERDISCIPLINARY COMMUNICATION: REVIEWED ELECTRONIC MEDICAL RECORD Therapist: MILVIA Almaguer/Chhaya Signature on file
[2017-05-14] MEDS: NYSTAT/DIPHENHY/LIDO MOUTHWASH (Adult) 120ML SWISH-SWAL SCH ×3 (14:09→22:09)
--- NOTE | 2017-05-14 14:46 | PD.CONS ---
Consult Service Palliative Care Consult Requested By Dr. Harley . Primary Care Physician Maria De Jesus Saavedra M.D. . Reason for Consultation a. To assist with evaluation and management of symptoms including: dyspnea , headache b. To assist medical decision maker(s) with: better understanding of current medical conditions; weighing benefits/burdens of medical treatment options; making medical treatment decisions. . HPI History of Present Illness This 66 yo female, with a past hx of COPD and NSC lung cancer, was admitted on because of dyspnea and right facial swelling. The patient developed adenopathy, and further testing and biopsy in November 2015 revealed non-small cell lung cancer. At the time, she reportedly opted for no particular traditional treatment, but did seek some nontraditional treatment resources. One month prior to this admission, the patient presented to the hospital because of altered mental status and weight loss, and scans revealed metastatic disease to brain with some edema, and a CT scan of the chest revealed a 4.1 x 6.9 x 5.2 cm left upper lobe mass with adenopathy. She was placed on oral steroids. Many treatment options were discussed, and the patient elected to go to [place] for treatment. The family notes that a scan over there revealed apparent metastatic disease in "her right hip." She underwent gamma knife treatment of the brain lesions 8 days ago, and she was being tapered off of steroids so that she may become eligible for a clinical trial as offered by her oncologist, Dr. Interiano. The family notes that as she tapered and came off of the steroids she became weaker. The patient had some dental work done a week prior to this admission, and was having some worsened facial swelling in that area the past couple days. The patient also underwent a Zometa infusion 2 days prior to this admission, and the family noticed more profound weakness after that. As her dyspnea worsened the day or 2 prior to coming to the hospital, the weakness also got worse, and she presented to the emergency department on 05/13/17. Findings in the emergency department included: * Week, alert * 98.8, pulse 111, respirations 23, blood pressure 115/56, O2 saturation 94% on 2 L * White count 6.1, hemoglobin 13.2 * Sodium 1:30, creatinine 0.45, albumin 2.4 * Chest x-ray revealed left upper lobe mass/consolidation * CT angiography of the chest revealed an increase in the tumor size when compared to prior scans, and also evidence of pneumonia on the left. There was no PE. The patient was admitted and begun on antibiotics. Steroids were restarted to try to help with symptoms. Palliative Care was consulted to assist with symptom management, and to enter into discussions with the patient and her family regarding her illnesses, the prognosis, and the benefits and burdens of the various treatment choices. When discussing goals, the patient and her family note that she has follow-up appointment with her oncologist in [place] on 05/25/17, and that they are waiting on test results for PD-L1 and gene studies (which will determine whether she may be eligible for Keytruda). They note that this current hospitalization would make her ineligible for a potential clinical trial (being considered by her oncologist) for at least another month. . Function/Cognitive Trajectory The patient was functioning quite independently at home, although she has had more difficulty in recent days because of worsening weakness since her so made a infusion and gamma knife intervention within the past week. She has not had any falls. . Review of Systems ROS Limitations: Altered Mental Status Constitutional: COMPLAINS OF: Weight loss, DENIES: Fever Endocrine: DENIES: Polyuria Eyes: DENIES: Eye inflammation Ears, nose, mouth, throat: DENIES: Epistaxis Respiratory: COMPLAINS OF: Cough, Shortness of breath Cardiovascular: DENIES: Chest pain Gastrointestinal: DENIES: Black stools, Bloody stools, Diarrhea, Vomiting, Vomiting blood Genitourinary: DENIES: Hematuria Musculoskeletal: COMPLAINS OF: Neck pain (disc problem, chronic pain), DENIES : Joint pain Integumentary: DENIES: Rash Hematologic/Lymphatics: DENIES: Bruising Immunologic/Allergic: DENIES: Urticaria Neurologic: COMPLAINS OF: Headache (when she lays her head back), DENIES: Seizures Psychiatric: COMPLAINS OF: Depression, DENIES: Hallucinations, Agitation Past Family Social History Coded Allergies: neomycin (Unverified Allergy, Severe, SKIN BREAKDOWN, ITCHING, 05/11/17) Past Medical History * Non-small cell lung cancer, with brain, bone, and lymph node metastases * Recent gamma knife procedures * History of COPD * Pneumonia on CT scan * Chronic neck pain * Depression * History of osteoporosis . Past Surgical History * Appendectomy * Tubal ligation * Right ear surgery * Tonsils * Right knee 2008 . Reported Medications Reported Meds & Active Scripts Active Keppra (Levetiracetam) 500 Mg Tab 500 Mg PO Q12HR Reported Lortab (Hydrocodone-Acetaminophen) 5-325 Mg Tab 1-2 Tab PO Q6H PRN Xanax (Alprazolam) 0.5 Mg Tab 0.5 Mg PO HS PRN Temazepam 15 Mg Cap 15 Mg PO HS PRN . Current Medications Medications (Trade) Dose Ordered Sig/Michelle Route Start Time Stop Time Status Last Admin (Xanax) 0.5 mg HS PRN PO 05/13/17 17:30 (Keppra) 500 mg Q12HR PO 05/13/17 21:00 05/14/17 09:26 Temazepam 15 mg 15 mg HS PRN PO 05/13/17 17:30 05/13/17 23:00 (NS 1000 ml Inj) 1,000 ml @ 100 mls/hr Q10H IV 05/13/17 17:32 05/14/17 09:56 (Tylenol) 650 mg Q4H PRN PO 05/13/17 17:45 (Zofran Inj) 4 mg Q6H PRN IVP 05/13/17 17:45 (Reglan Inj) 5 mg Q6H PRN IV PUSH 05/13/17 17:45 (Compazine Supp) 25 mg Q12H PRN RECTAL 05/13/17 17:45 (Lovenox Inj) 40 mg Q24H SQ 05/13/17 20:00 05/13/17 20:50 (Tylenol) 650 mg Q6H PRN PO 05/13/17 17:45 ([place] 5-325 Mg) 1 tab Q4H PRN PO 05/13/17 17:45 ([place] 10-325 Mg) 1 tab Q4H PRN PO 05/13/17 17:45 (Morphine Inj) 2 mg Q3H PRN IV 05/13/17 17:45 (Morphine Inj) 4 mg Q3H PRN IV 05/13/17 17:45 (Narcan Inj) 0.4 mg UNSCH PRN IV 05/13/17 17:45 (Chandni-Colace) 1 tab BID PO 05/13/17 21:00 05/14/17 09:26 (Milk Of Magnesia Liq) 30 ml Q12H PRN PO 05/13/17 17:45 (Senokot) 17.2 mg Q12H PRN PO 05/13/17 17:45 (Dulcolax Supp) 10 mg DAILY PRN RECTAL 05/13/17 17:45 (Lactulose Liq) 30 ml DAILY PRN PO 05/13/17 17:45 (NS Flush) 2 ml UNSCH PRN IV FLUSH 05/13/17 17:45 Sodium Chloride 2 ml 2 ml BID IV FLUSH 05/13/17 21:00 05/14/17 09:28 Piperacillin Sod/ Tazobactam Sod 100 ml @ 200 mls/hr Q6H IV 05/13/17 20:00 05/14/17 09:27 Azithromycin 500 mg/Sodium Chloride 250 ml @ 250 mls/hr Q24H IV 05/13/17 20:00 05/13/17 20:49 (Vancomycin Consult Pharmacy) 0 ml @ 0 mls/hr UNSCH OTHER 05/13/17 17:45 (Mucinex Er) 600 mg BID PO 05/13/17 21:00 05/14/17 09:26 Pantoprazole Sodium 40 mg 40 mg DAILY PO 05/14/17 09:00 (Vancomycin Inj/ NS 250 ml Inj) 257.5 ml @ 250 mls/hr Q12H IV 05/14/17 05:00 05/14/17 05:18 Miscellaneous Information SPECIFIC LAB TO BE TUTU... ONCE ONCE .XX 05/15/17 04:45 05/15/17 04:46 (Symbicort 160-4.5 Inh) 2 puff Q12HR INH 05/13/17 21:00 05/14/17 12:00 (Magic Mouthwash Adult Liq) 10 ml QID SWISH-SWAL 05/14/17 13:00 (SoluMEDROL INJ) 40 mg Q8H IV 05/14/17 20:00 Family History The patient's father at age 89, the patient's mother at age 81 of some sort of abdominal malignancy. There is no family history of lung cancer. . Substance Use Tobacco: One pack per day for many years Alcohol: Occasional Prescription med abuse: None Illicits: None . Psychosocial History Born in [place], but moved to [place] with her family at 1 years of age, and has lived in [place] the rest of her life. for 43 years, 2 daughters and 1 son. The entire family lives locally. Worked for [employer], retired. . Spiritual/Cultural Factors The patient reports that she is spiritual but not muslim. She does not desire a visit from chaplains at this time. . Living Will: Never completed Health Care Surrogate: Never completed Durable Power of Delinquent Account Clerk: Never completed Today's verbally stated goals: When discussing goals, the patient and her family note that she has follow-up appointment with her oncologist in [place] on 05/25/17, and that they are waiting on test results for PD-L1 and gene studies (which will determine whether she may be eligible for Keytruda). They note that this current hospitalization would make her ineligible for a potential clinical trial (being considered by her oncologist) for at least another month. They are certainly open to hospice services, and they understand that she could have hospice services and later could revoke services if she chose to engage in more aggressive care. They have specifically requested a consultation with [facility]. Family/friends goals: The family is hoping the patient can get back home soon and is open to hospice services, but would want to take advantage of Keytruda and/or a potential clinical trial in [place] if the patient is found to be eligible. . Ethical and Legal Issues There are no ethical issues that would impact her care or decision-making at this time. The patient has capacity for decision-making at this time. When she loses that capacity, her would be the decision making proxy. . Physical Exam Vital Signs Date Time Temp Pulse Resp B/P Pulse Ox O2 Delivery O2 Flow Rate FiO2 05/14/17 12:00 99.4 103 24 95/52 96 05/14/17 12:00 106 05/14/17 10:00 102 05/14/17 08:59 98 Nasal Cannula 3.00 05/14/17 08:00 99.4 93 24 116/50 92 05/14/17 04:20 98 Nasal Cannula 3.00 05/14/17 04:00 99.4 94 16 107/44 98 05/14/17 01:00 81 05/14/17 00:00 98.6 93 18 103/57 98 05/13/17 21:29 99.6 109 16 118/67 96 05/13/17 20:34 92 20 136/58 95 Nasal Cannula 3 05/13/17 18:55 107 24 133/61 94 Nasal Cannula 3 05/13/17 05/14/17 18:59 06:59 Intake Total 165 ml Balance 165 ml Intake Oral 150 ml IV Total 15 ml # Voids 1 # Bowel Movements 0 Exam CONSTITUTIONAL/GENERAL: This is an adequately nourished patient, in no apparent distress. TUBES/LINES/DRAINS: IV access SKIN: No jaundice, rashes, or lesions. Ecchymoses on upper extremities. No wounds seen anteriorly. Skin temperature appropriate. Not diaphoretic. HEAD: Atraumatic. Normocephalic. EYES: Pupils equal and round and reactive. Extraocular motions intact. No scleral icterus. No injection or drainage. Fundi not examined. ENT: Hearing grossly normal. Nose without bleeding or purulent drainage. Throat without visible erythema, exudates, masses, or lesions. NECK: Trachea midline. Supple, nontender. No palpable thyroid enlargement or nodularity. CARDIOVASCULAR: Regular rate and rhythm without murmurs, gallops, or rubs. No JVD. Peripheral pulses symmetric. RESPIRATORY/CHEST: Symmetric, unlabored respirations. Breath sounds diminished on the left, a few scattered rhonchi. GASTROINTESTINAL: Abdomen soft, non-tender, nondistended. No hepato-splenomegaly , or palpable masses. No guarding. Bowel sounds present. GENITOURINARY: Without palpable bladder distension. MUSCULOSKELETAL: Extremities without clubbing, cyanosis, or edema. No joint tenderness or effusion noted. No calf tenderness. No mottling or clubbing. LYMPHATICS: No palpable cervical or supraclavicular adenopathy. NEUROLOGICAL: Awake and alert. Motor and sensory grossly intact, but some global weakness. Follows commands. Cognitively sharp. Moves all extremities. PSYCHIATRIC: No obvious anxiety/depression. no apparent hallucinations or other psychotic thought process. . Diagnostic Tests Laboratory Laboratory Tests Test 05/13/17 05/13/17 05/13/17 05/14/17 12:45 13:00 20:13 07:30 White Blood Count 6.1 TH/MM3 6.0 TH/MM3 (4.0-11.0) (4.0-11.0) Red Blood Count 4.49 MIL/MM3 4.04 MIL/MM3 (4.00-5.30) (4.00-5.30) Hemoglobin 13.2 GM/DL 12.1 GM/DL (11.6-15.3) (11.6-15.3) Hematocrit 40.2 % 35.7 % (35.0-46.0) (35.0-46.0) Mean Corpuscular Volume 89.5 FL 88.4 FL (80.0-100.0) (80.0-100.0) Mean Corpuscular Hemoglobin 29.5 PG 30.1 PG (27.0-34.0) (27.0-34.0) Mean Corpuscular Hemoglobin 32.9 % 34.0 % Concent (32.0-36.0) (32.0-36.0) Red Cell Distribution Width 14.8 % 14.8 % (11.6-17.2) (11.6-17.2) Platelet Count 179 TH/MM3 166 TH/MM3 (150-450) (150-450) Mean Platelet Volume 7.0 FL 7.7 FL (7.0-11.0) (7.0-11.0) Neutrophils (%) (Auto) 79.7 % 80.7 % (16.0-70.0) (16.0-70.0) Lymphocytes (%) (Auto) 8.1 % 7.7 % (9.0-44.0) (9.0-44.0) Monocytes (%) (Auto) 10.5 % 9.6 % (0.0-8.0) (0.0-8.0) Eosinophils (%) (Auto) 1.3 % (0.0-4.0) 1.5 % (0.0-4.0) Basophils (%) (Auto) 0.4 % (0.0-2.0) 0.5 % (0.0-2.0) Neutrophils # (Auto) 4.9 TH/MM3 4.8 TH/MM3 (1.8-7.7) (1.8-7.7) Lymphocytes # (Auto) 0.5 TH/MM3 0.5 TH/MM3 (1.0-4.8) (1.0-4.8) Monocytes # (Auto) 0.6 TH/MM3 0.6 TH/MM3 (0-0.9) (0-0.9) Eosinophils # (Auto) 0.1 TH/MM3 0.1 TH/MM3 (0-0.4) (0-0.4) Basophils # (Auto) 0.0 TH/MM3 0.0 TH/MM3 (0-0.2) (0-0.2) CBC Comment DIFF FINAL DIFF FINAL Differential Comment Prothrombin Time 10.0 SEC (9.8-11.6) Prothromb Time International 0.9 RATIO Ratio Activated Partial 26.8 SEC Thromboplast Time (24.3-30.1) Sodium Level 130 MEQ/L (136-145) Potassium Level 4.0 MEQ/L (3.5-5.1) Chloride Level 99 MEQ/L (98-107) Carbon Dioxide Level 23.4 MEQ/L (21.0-32.0) Anion Gap 8 MEQ/L (5-15) Blood Urea Nitrogen 8 MG/DL (7-18) Creatinine 0.45 MG/DL (0.50-1.00) Estimat Glomerular Filtration 139 ML/MIN Rate (>89) Random Glucose 133 MG/DL (74-106) Lactic Acid Level 2.1 mmol/L 1.4 mmol/L (0.4-2.0) (0.4-2.0) Calcium Level 8.1 MG/DL (8.5-10.1) Total Bilirubin 0.6 MG/DL (0.2-1.0) Aspartate Amino Transf 12 U/L (15-37) (AST/SGOT) Alanine Aminotransferase 20 U/L (10-53) (ALT/SGPT) Alkaline Phosphatase 53 U/L (45-117) B-Type Natriuretic Peptide 32 PG/ML (0-100) Total Protein 5.8 GM/DL (6.4-8.2) Albumin 2.4 GM/DL (3.4-5.0) Urine Color YELLOW (YELLW/STRAW) Urine Turbidity CLEAR (CLEAR) Urine pH 6.0 (5.0-8.5) Urine Specific [place] 1.018 (1.002-1.035) Urine Protein TRACE mg/dL (NEG-TRACE) Urine Glucose (UA) 300 mg/dL (NEG) Urine Ketones NEG mg/dL (NEG) Urine Occult Blood NEG (NEG) Urine Nitrite NEG (NEG) Urine Bilirubin NEG (NEG) Urine Urobilinogen LESS THAN 2.0 MG/DL (LESS THAN 2.0) Urine Leukocyte Esterase NEG (NEG) Urine RBC LESS THAN 1 /hpf (0-3) Urine WBC 1 /hpf (0-5) Urine Squamous Epithelial <1 /hpf (0-5) Cells Urine Mucus FEW /lpf (OCC) Microscopic Urinalysis Comment CULT NOT INDICATED Test 05/14/17 07:36 Sodium Level 134 MEQ/L (136-145) Potassium Level 4.1 MEQ/L (3.5-5.1) Chloride Level 97 MEQ/L (98-107) Carbon Dioxide Level 32.4 MEQ/L (21.0-32.0) Anion Gap 5 MEQ/L (5-15) Blood Urea Nitrogen 5 MG/DL (7-18) Creatinine 0.59 MG/DL (0.50-1.00) Estimat Glomerular Filtration 101 ML/MIN Rate (>89) Random Glucose 130 MG/DL (74-106) Calcium Level 7.3 MG/DL (8.5-10.1) Protein Corrected Calcium 8.1 MG/DL (8.5-10.1) Phosphorus Level 2.2 MG/DL (2.5-4.9) Magnesium Level 2.1 MG/DL (1.5-2.5) Total Bilirubin 0.6 MG/DL (0.2-1.0) Aspartate Amino Transf 11 U/L (15-37) (AST/SGOT) Alanine Aminotransferase 20 U/L (10-53) (ALT/SGPT) Alkaline Phosphatase 51 U/L (45-117) Total Protein 5.6 GM/DL (6.4-8.2) Albumin 2.2 GM/DL (3.4-5.0) Free Thyroxine 1.21 NG/DL (0.76-1.46) Thyroid Stimulating Hormone 0.724 uIU/ML 3rd Gen (0.358-3.740) Result Diagram: 05/14/17 0730 05/14/17 0736 Microbiology Microbiology Date/Time Procedure Status Source Growth 05/13/17 12:45 Aerobic Blood Culture - Preliminary Resulted Blood Peripheral NO GROWTH IN 1 DAY 05/13/17 12:45 Anaerobic Blood Culture - Preliminary Resulted Blood Peripheral NO GROWTH IN 1 DAY 05/13/17 12:50 Aerobic Blood Culture - Preliminary Resulted Blood Peripheral NO GROWTH IN 1 DAY 05/13/17 12:50 Anaerobic Blood Culture - Preliminary Resulted Blood Peripheral NO GROWTH IN 1 DAY 05/13/17 18:00 Gram Stain - Final Resulted Sputum Expectorated Sputum 05/13/17 18:00 Sputum Culture - Preliminary Resulted Sputum Expectorated Sputum LIGHT GROWTH NORMAL RESPIRATORY NICK... Imaging Last Impressions CT Angiography 05/13/17 1249 Signed Impressions: Service Date/Time: April 15:04 - CONCLUSION: 1. No evidence of pulmonary embolism. 2. Mild interval increase in size of the known large left upper lobe tumor mass. 3. New focal air consolidative opacity along the lateral left lower lobe which may represent tumor versus post obstructive pneumonia. 4. Small amount of pericardial fluid. 5. No spinal or hilar adenopathy is again noted. 6. New small bilateral pleural effusions right greater than left. Randy Edwards MD Chest X-Ray 05/13/17 1240 Signed Impressions: Service Date/Time: April 13:07 - CONCLUSION: 1. Unchanged masslike consolidation within the left upper lobe. 2. No consolidation within the peripheral aspects of the left lower lobe. Alverto Orr Jr., MD Maxillofacial CT 05/13/17 0000 Signed Impressions: Service Date/Time: April 15:01 - CONCLUSION: 1. Streak artifact from multiple dental fillings in the mandible and maxilla. 2. The bony structures otherwise intact with no evidence of metastatic disease. 3. The known metastatic lesion in right parietal lobe is faintly visualized. Randy Edwards MD Patient/Family Conference Present at Family Conference: With me in the patient, also present Ron, daughter Lizzeth, daughter- in-law . Family Conference Time (mins): 55 Family Conference Location: Bedside Issues Discussed: * Palliative care role, purpose, approach * Hospice care role, purpose, and approach * Additional medical, psychosocial, and spiritual history * Patients general health, functional status, and cognitive changes in the months leading up to the current hospitalization * Patient/family understanding of the current medical problems * Patient/family understanding of prognosis * Patients goals of care as best understood from advance directives and/or conversations and/or values * Current medical treatment options and benefits/burdens of those options * Likely scenarios comparing ongoing aggressive care with a transition to comfort measures only * Questions answered to the best of my ability * Palliative care contact information provided When discussing goals, the patient and her family note that she has follow-up appointment with her oncologist in [place] on 05/25/17, and that they are waiting on test results for PD-L1 and gene studies (which will determine whether she may be eligible for Keytruda). They note that this current hospitalization would make her ineligible for a potential clinical trial (being considered by her oncologist) for at least another month. They are certainly open to hospice services, and they understand that she could have hospice services and later could revoke services if she chose to engage in more aggressive care. They have specifically requested a consultation with [facility]. The family is hoping the patient can get back home soon and is open to hospice services, but would want to take advantage of Keytruda and/or a potential clinical trial in [place] if the patient is found to be eligible. . 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 Spiritual: The patient describes herself as spiritual but not muslim, and she does not want collar setter visits at this time. Legal: The patient has capacity for decision-making at this time. When she loses that capacity, her would be the decision making proxy. Ethical issues impacting care: None . Important Contacts : Ron Martinezeris cell: [phone] Daughter: Rosette Ludwig [phone] Daughter: Carmen Roche [phone] . Prognosis The patient has widely metastatic non-small cell lung cancer, and would be considered to be terminal, with weeks or months remaining. . Code Status: Full Code Plan * FULL CODE * GOALS: When discussing goals, the patient and her family note that she has a follow-up appointment with her oncologist in [place] on 05/25/17, and that they are waiting on test results for PD-L1 and gene studies (which will determine whether she may be eligible for Keytruda). They note that this current hospitalization would make her ineligible for a potential clinical trial (being considered by her [place] oncologist Dr. Interiano) for at least another month. They are certainly open to hospice services, and they understand that she could have hospice services and later could revoke services if she became eligible for and chose to engage in more aggressive care. They have specifically requested a consultation with [facility] in order to obtain more information. The family is hoping the patient can get back home soon and is open to hospice services, but would want to take advantage of Keytruda and/or a potential clinical trial in [place] if the patient is found to be eligible. * DECISION-MAKING: The patient has capacity for decision-making at this time. When she loses that capacity, her would be the decision making proxy. * SYMPTOMS: Her chronic neck pain is mild and tolerable. She only has had pain when she is lying supine, and she has been receiving PRN Lortab for that in recent weeks. Her dyspnea has been managed with supplemental oxygen and antibiotics for the pneumonia. I have no additional medication recommendations at this time. * Palliative Care will continue to follow this patient during this hospitalization. . Time Spent Total Floor Time (mins): 81 Face to Face Time (mins): 60 >50% Counseling/Coord of Care: Yes Thank you for the opportunity to participate in the care of Ms. Roche. Attestation To help prompt me to consider important information that might be impacting today's encounter and assessment, information from prior notes written by myself or my colleagues may have been "brought forward" into today's note. My signature on this note, however, is an attestation that I personally performed the exam, history, and/or decision-making noted today, and, unless otherwise indicated, the interactions with patient, family, and staff as well as the review of records all occurred today. I also attest that the listed assessment and stated plan reflect my best clinical judgment today based on the combination of historical information, prior notes, and today's exam/ interactions. When time spent is documented, it refers only to time spent today by the signer, or if indicated, combined time spent today by collaborating physician/nurse practitioner. Ita Gambino MD May 14, 2017 14:46
[2017-05-14 16:40] LABS: HEMOGLOBIN A1a 1.2 %; HEMOGLOBIN A1b 2.1 %; HEMOGLOBIN Ao 83.7 %; HEMOGLOBIN LA1C 2.1 %; HEMOGLOBIN P3 3.9 %
[2017-05-14] MEDS ORDERED: methylPREDNISolone SOD SUCC 40 MG/1 ML VIAL IV PUSH SCH (17:00)
[2017-05-14] MEDS: ENOXAPARIN SODIUM 40 MG/0.4 ML SYRINGE SQ SCH (20:35)
[2017-05-14] MEDS: AZITHROMYCIN INJ 500 MG in SODIUM CHLOR 0.9% 250 ML INJ 250 ML IV SCH (20:39)
[2017-05-15] VITALS (9 sets, daily range): BP systolic 103–133; BP diastolic 51–63; PULSE 71–105; RESP 17–21; TEMP 96–98.4; O2SAT 94–100
[2017-05-15] MEDS: PIPERACIL-TAZO 4.5 GM PREMIX 100 ML IV SCH ×4 (04:00→22:23)
[2017-05-15] MEDS: methylPREDNISolone SOD SUCC 40 MG/1 ML VIAL IV SCH ×3 (04:41→19:49)
[2017-05-15] MEDS ORDERED: PHARMACY ORDERED LAB ONE (04:45)
[2017-05-15] MEDS: VANCOMYCIN INJ 750 MG in SODIUM CHLOR 0.9% 250 ML INJ 250 ML IV SCH (05:55)
[2017-05-15] MEDS: PANTOPRAZOLE SOD 40 MG DELAYED RELEASE TAB PO SCH (09:00)
--- NOTE | 2017-05-15 09:01 | HHI.PR ---
Subjective Remarks 66-year-old female complains of pain and swelling to the right side of face, shortness of breath, bilateral ankle swelling. Patient has history of metastatic lung CA. 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 Patient had infusion of medication yesterday for osteoporosis. Patient does not know the name of that. Patient has been seen by oncologist in the last month for her cancer. Patient had dental procedure done few days ago on the right gum. Patient states that she has increasing pain and swelling of the right side of face since yesterday. Patient also had increasing weakness since yesterday. Patient complaining of shortness of breath this morning. Patient shortness of breath and increased ankle swelling since last night. Patient denies any fever chills. Patient denies any chest pain. Patient denies abdominal pain. Patient denies any nausea vomiting diarrhea. Patient denies any dysuria or frequency. Patient denies any back pain. Was found to have pneumonia. Will be treated with antibiotics will be treated with steroids. Mucinex incentive spirometry as well as fluids and duo nebs 05-14 discussion with patient and RN daughter and . Patient's primary care physician is Dr. Maria De Jesus Saavedra Her oncologist here is Current oncologist in [place] is Dr. ANN Had refused steroids yesterday. We'll make sure she gets steroids today and is on a scheduled IV treatment wIll consult physical therapy occupational therapy and speech therapy Patient needs swallow eval to make sure she is not aspirating HAS THRUSH 05-15 MUCH more alert today Refill she is breathing better Is much more awake and alert today Needs to have a bowel movement and is constipated Discussed with patient, RN, and family Steroids Being tapered down A.m. labs Objective Vitals Vital Signs Date Time Temp Pulse Resp B/P Pulse Ox O2 Delivery O2 Flow Rate FiO2 05/15/17 04:00 96.0 105 19 115/52 95 05/15/17 00:00 96.6 94 18 103/51 100 05/14/17 22:35 93 Nasal Cannula 21 05/14/17 21:00 109 05/14/17 20:00 96.5 83 19 100/51 96 Manual Cuff/Auscultation 05/14/17 16:00 99.2 91 24 92/46 96 102/52 05/14/17 12:00 99.4 103 24 95/52 96 05/14/17 12:00 106 05/14/17 10:00 102 05/14/17 08:59 98 Nasal Cannula 3.00 I/O 05/14/17 05/14/17 05/14/17 05/15/17 05/15/17 05/15/17 07:00 15:00 23:00 07:00 15:00 23:00 Intake Total 165 ml 640 ml 480 ml 993 ml Balance 165 ml 640 ml 480 ml 993 ml Intake Oral 150 ml 640 ml 480 ml 240 ml IV Total 15 ml 753 ml # Voids 1 4 2 1 # Bowel Movements 0 Result Diagram: 05/14/17 0730 05/14/17 0736 Other Results Laboratory Tests Test 05/13/17 05/13/17 05/13/17 05/14/17 12:45 13:00 20:13 07:30 White Blood Count 6.1 TH/MM3 6.0 TH/MM3 Red Blood Count 4.49 MIL/MM3 4.04 MIL/MM3 Hemoglobin 13.2 GM/DL 12.1 GM/DL Hematocrit 40.2 % 35.7 % Mean Corpuscular Volume 89.5 FL 88.4 FL Mean Corpuscular Hemoglobin 29.5 PG 30.1 PG Mean Corpuscular Hemoglobin 32.9 % 34.0 % Concent Red Cell Distribution Width 14.8 % 14.8 % Platelet Count 179 TH/MM3 166 TH/MM3 Mean Platelet Volume 7.0 FL 7.7 FL Neutrophils (%) (Auto) 79.7 % 80.7 % Lymphocytes (%) (Auto) 8.1 % 7.7 % Monocytes (%) (Auto) 10.5 % 9.6 % Eosinophils (%) (Auto) 1.3 % 1.5 % Basophils (%) (Auto) 0.4 % 0.5 % Neutrophils # (Auto) 4.9 TH/MM3 4.8 TH/MM3 Lymphocytes # (Auto) 0.5 TH/MM3 0.5 TH/MM3 Monocytes # (Auto) 0.6 TH/MM3 0.6 TH/MM3 Eosinophils # (Auto) 0.1 TH/MM3 0.1 TH/MM3 Basophils # (Auto) 0.0 TH/MM3 0.0 TH/MM3 CBC Comment DIFF FINAL DIFF FINAL Differential Comment Prothrombin Time 10.0 SEC Prothromb Time International 0.9 RATIO Ratio Activated Partial 26.8 SEC Thromboplast Time Sodium Level 130 MEQ/L Potassium Level 4.0 MEQ/L Chloride Level 99 MEQ/L Carbon Dioxide Level 23.4 MEQ/L Anion Gap 8 MEQ/L Blood Urea Nitrogen 8 MG/DL Creatinine 0.45 MG/DL Estimat Glomerular Filtration 139 ML/MIN Rate Random Glucose 133 MG/DL Lactic Acid Level 2.1 mmol/L 1.4 mmol/L Calcium Level 8.1 MG/DL Total Bilirubin 0.6 MG/DL Aspartate Amino Transf 12 U/L (AST/SGOT) Alanine Aminotransferase 20 U/L (ALT/SGPT) Alkaline Phosphatase 53 U/L B-Type Natriuretic Peptide 32 PG/ML Total Protein 5.8 GM/DL Albumin 2.4 GM/DL Urine Color YELLOW Urine Turbidity CLEAR Urine pH 6.0 Urine Specific [place] 1.018 Urine Protein TRACE mg/dL Urine Glucose (UA) 300 mg/dL Urine Ketones NEG mg/dL Urine Occult Blood NEG Urine Nitrite NEG Urine Bilirubin NEG Urine Urobilinogen LESS THAN 2.0 MG/DL Urine Leukocyte Esterase NEG Urine RBC LESS THAN 1 /hpf Urine WBC 1 /hpf Urine Squamous Epithelial <1 /hpf Cells Urine Mucus FEW /lpf Microscopic Urinalysis Comment CULT NOT INDICATED Test 05/14/17 05/15/17 07:36 04:40 Sodium Level 134 MEQ/L Potassium Level 4.1 MEQ/L Chloride Level 97 MEQ/L Carbon Dioxide Level 32.4 MEQ/L Anion Gap 5 MEQ/L Blood Urea Nitrogen 5 MG/DL Creatinine 0.59 MG/DL Estimat Glomerular Filtration 101 ML/MIN Rate Random Glucose 130 MG/DL Hemoglobin A1c 6.1 % Calcium Level 7.3 MG/DL Protein Corrected Calcium 8.1 MG/DL Phosphorus Level 2.2 MG/DL Magnesium Level 2.1 MG/DL Total Bilirubin 0.6 MG/DL Aspartate Amino Transf 11 U/L (AST/SGOT) Alanine Aminotransferase 20 U/L (ALT/SGPT) Alkaline Phosphatase 51 U/L Total Protein 5.6 GM/DL Albumin 2.2 GM/DL Free Thyroxine 1.21 NG/DL Thyroid Stimulating Hormone 0.724 uIU/ML 3rd Gen Vancomycin Level Trough 6.0 MCG/ML Imaging Last Impressions CT Angiography 05/13/17 [id number] Signed Impressions: Service Date/Time: April 15:04 - CONCLUSION: 1. No evidence of pulmonary embolism. 2. Mild interval increase in size of the known large left upper lobe tumor mass. 3. New focal air consolidative opacity along the lateral left lower lobe which may represent tumor versus post obstructive pneumonia. 4. Small amount of pericardial fluid. 5. No spinal or hilar adenopathy is again noted. 6. New small bilateral pleural effusions right greater than left. Randy Edwards MD Chest X-Ray 05/13/17 1240 Signed Impressions: Service Date/Time: , May 13, 2017 13:07 - CONCLUSION: 1. Unchanged masslike consolidation within the left upper lobe. 2. No consolidation within the peripheral aspects of the left lower lobe. Alverto Orr Jr., MD Maxillofacial CT 05/13/17 0000 Signed Impressions: Service Date/Time: , May 13, 2017 15:01 - CONCLUSION: 1. Streak artifact from multiple dental fillings in the mandible and maxilla. 2. The bony structures otherwise intact with no evidence of metastatic disease. 3. The known metastatic lesion in right parietal lobe is faintly visualized. Randy Edwards MD Objective Remarks GENERAL: This is a cachectic, well-developed patient, in less apparent distress. Not lethargic at all today SKIN: No rashes, ecchymoses or lesions. Cool and dry. HEAD: Atraumatic. Normocephalic. No temporal or scalp tenderness. EYES: Pupils equal round and reactive. Extraocular motions intact. No scleral icterus. No injection or drainage. ENT: Nose without bleeding, purulent drainage or septal hematoma. Throat without erythema, tonsillar hypertrophy or exudate. Uvula midline. Airway patent. Right side of her face is less swollen and tender-- tongue is midline-- thrush seems to have improved NECK: Trachea midline. No JVD or lymphadenopathy. Supple, nontender, no meningeal signs. CARDIOVASCULAR: Regular rate and rhythm without murmurs, gallops, or rubs. S1 and S2 no S3 or S4 no heave or thrill or rub or gallop RESPIRATORY: Coarse breath sounds bilaterally. Breath sounds equal bilaterally. Scattered rhonchi GASTROINTESTINAL: Abdomen soft, non-tender, nondistended. No hepato-splenomegaly , or palpable masses. No guarding. MUSCULOSKELETAL: Extremities without clubbing, cyanosis, or edema. No joint tenderness, effusion, or edema noted. No calf tenderness. Negative Homans sign bilaterally. NEUROLOGICAL: Awake and alert. Cranial nerves II through XII intact. Motor and sensory grossly within normal limits. Five out of 5 muscle strength in all muscle groups. Normal speech. Insight and judgment are limited to illness Mood and behavior are somewhat improved Medications and IVs Current Medications Sodium Chloride (NS 1000 ml Inj) 1,000 ml @ 100 mls/hr Q10H IV Last administered on 05/13/17 13:14; Start 05/13/17 at 12:45; Stop 05/13/17 at 18:03 ; Status DC Morphine Sulfate (Morphine Inj) 2 mg ONCE ONCE IV PUSH Last administered on 13:15; Start 05/13/17 at 12:45; Stop 05/13/17 at 12:49; Status DC Ondansetron HCl 4 mg 4 mg ONCE ONCE IV PUSH Last administered on 05/13/17 13: 15; Start 05/13/17 at 12:45; Stop 05/13/17 at 12:49; Status DC Ampicillin Sodium/ Sulbactam Sodium/ Sodium Chloride (Unasyn Inj/NS Inj) 100 ml @ 200 mls/hr ONCE ONCE IV Last administered on 05/13/17 13:14; Start at 12:45; Stop 05/13/17 at 13:14; Status DC Albuterol/ Ipratropium (Duoneb Neb) 1 ampule ONCE ONCE INH Last administered on 05/13/17 14:35; Start 05/13/17 at 14:15; Stop 05/13/17 at 14:16; Status DC Iohexol 66 ml 66 ml STK-MED ONCE IV ; Start 05/13/17 at 15:24; Stop 05/13/17 at 15:25; Status DC Vancomycin HCl/ Sodium Chloride (Vancomycin Inj/ NS 250 ml Inj) 250 ml @ 250 mls/hr ONCE ONCE IV Last administered on 05/13/17 17:27; Start 05/13/17 at 16 :45; Stop 05/13/17 at 17:44; Status DC Alprazolam (Xanax) 0.5 mg HS PRN PO SLEEP; Start 05/13/17 at 17:30 Levetriacetam (Keppra) 500 mg Q12HR PO Last administered on 05/14/17 20:34; Start 05/13/17 at 21:00 Temazepam 15 mg 15 mg HS PRN PO INSOMNIA Last administered on 05/13/17 23:00; Start 05/13/17 at 17:30 Sodium Chloride (NS 1000 ml Inj) 1,000 ml @ 100 mls/hr Q10H IV Last administered on 05/14/17 09:56; Start 05/13/17 at 17:32 Sodium Chloride (NS Flush) 2 ml UNSCH PRN IV FLUSH FLUSH AFTER USING IV ACCESS ; Start 05/13/17 at 17:45; Stop 05/13/17 at 18:02; Status DC Sodium Chloride (NS Flush) 2 ml BID IV FLUSH ; Start 05/13/17 at 21:00; Stop at 21:00; Status DC Acetaminophen (Tylenol) 650 mg Q4H PRN PO TEMP > 100.4; Start 05/13/17 at 17:45 Ondansetron HCl (Zofran Inj) 4 mg Q6H PRN IVP NAUSEA OR VOMITING; Start at 17:45 Metoclopramide HCl (Reglan Inj) 5 mg Q6H PRN IV PUSH NAUSEA OR VOMITING; Start 05/13/17 at 17:45 Prochlorperazine (Compazine Supp) 25 mg Q12H PRN RECTAL NAUSEA OR VOMITING; Start 05/13/17 at 17:45 Enoxaparin Sodium (Lovenox Inj) 40 mg Q24H SQ Last administered on 05/14/17 20 :35; Start 05/13/17 at 20:00 Acetaminophen (Tylenol) 650 mg Q6H PRN PO PAIN SCALE 1 TO 2; Start 05/13/17 at 17:45 Acetaminophen/ Hydrocodone Bitart ([place] 5-325 Mg) 1 tab Q4H PRN PO PAIN SCALE 3 TO 5; Start 05/13/17 at 17:45 Acetaminophen/ Hydrocodone Bitart ([place] 10-325 Mg) 1 tab Q4H PRN PO PAIN SCALE 6 TO 10; Start 05/13/17 at 17:45 Morphine Sulfate (Morphine Inj) 2 mg Q3H PRN IV Pain 3-5; if unable to take PO ; Start 05/13/17 at 17:45 Morphine Sulfate (Morphine Inj) 4 mg Q3H PRN IV Pain 6-10;if unable to take PO ; Start 05/13/17 at 17:45 Naloxone HCl (Narcan Inj) 0.4 mg UNSCH PRN IV SEE LABEL COMMENTS; Start at 17:45 Senna/Docusate Sodium (Chandni-Colace) 1 tab BID PO Last administered on 20:35; Start 05/13/17 at 21:00 Magnesium Hydroxide (Milk Of Magnesia Liq) 30 ml Q12H PRN PO MILD - MODERATE CONSTIPATION Last administered on 05/14/17 22:09; Start 05/13/17 at 17:45 Sennosides (Senokot) 17.2 mg Q12H PRN PO MODERATE - SEVERE CONSTIPATION; Start 05/13/17 at 17:45 Bisacodyl (Dulcolax Supp) 10 mg DAILY PRN RECTAL SEVERE CONSITIPATION; Start at 17:45 Lactulose (Lactulose Liq) 30 ml DAILY PRN PO SEVERE CONSITIPATION; Start at 17:45 Sodium Chloride (NS Flush) 2 ml UNSCH PRN IV FLUSH FLUSH AFTER USING IV ACCESS ; Start 05/13/17 at 17:45 Sodium Chloride 2 ml 2 ml BID IV FLUSH Last administered on 05/14/17 20:43; Start 05/13/17 at 21:00 Piperacillin Sod/ Tazobactam Sod 100 ml @ 200 mls/hr Q6H IV Last administered on 05/14/17 22:09; Start 05/13/17 at 20:00; Stop 05/14/17 at 23:39; Status DC Azithromycin 500 mg/Sodium Chloride 250 ml @ 250 mls/hr Q24H IV Last administered on 05/14/17 20:39; Start 05/13/17 at 20:00 Pharmacy Profile Note (Vancomycin Consult Pharmacy) 0 ml @ 0 mls/hr UNSCH OTHER ; Start 05/13/17 at 17:45 Albuterol/ Ipratropium (Duoneb Neb) 1 ampule Q4HR NEB PRN INH SHORTNESS OF BREATH Last administered on 05/14/17 22:26; Start 05/13/17 at 17:45 Methylprednisolone Sodium Succinate (SoluMEDROL INJ) 40 mg Q12H IV ; Start 05/13 at 18:00; Stop 05/14/17 at 10:46; Status DC Guaifenesin (Mucinex Er) 600 mg BID PO Last administered on 05/14/17 20:34; Start 05/13/17 at 21:00 Pantoprazole Sodium (Protonix) 40 mg ONCE ONCE PO Last administered on 18:54; Start 05/13/17 at 18:00; Stop 05/13/17 at 18:12; Status DC Pantoprazole Sodium 40 mg 40 mg DAILY PO ; Start 05/14/17 at 09:00 Vancomycin HCl 1000 mg/Sodium Chloride 250 ml @ 250 mls/hr ONCE ONCE IV ; Start 05/13/17 at 18:30; Stop 05/13/17 at 19:29; Status DC Vancomycin HCl/ Sodium Chloride (Vancomycin Inj/ NS 250 ml Inj) 257.5 ml @ 250 mls/hr Q12H IV Last administered on 05/15/17 05:55; Start 05/14/17 at 05:00 Miscellaneous Information SPECIFIC LAB TO BE TUTU... ONCE ONCE .XX Last administered on 05/15/17 04:50; Start 05/15/17 at 04:45; Stop 05/15/17 at 04:46 ; Status DC Budesonide/ Formoterol Fumarate (Symbicort 160-4.5 Inh) 2 puff Q12HR INH Last administered on 05/14/17 22:10; Start 05/13/17 at 21:00 Furosemide (Lasix Inj) 20 mg ONCE ONCE IV PUSH Last administered on 05/14/17 05:25; Start 05/13/17 at 22:30; Stop 05/13/17 at 22:31; Status DC Methylprednisolone Sodium Succinate (SoluMEDROL INJ) 125 mg NOW ONCE IV Last administered on 05/14/17 11:47; Start 05/14/17 at 11:00; Stop 05/14/17 at 11:01 ; Status DC Methylprednisolone Sodium Succinate (SoluMEDROL INJ) 40 mg Q6H IV PUSH ; Start 05/14/17 at 17:00; Stop 05/14/17 at 17:00; Status DC Multi-Ingredient Mouthwash/Gargle (Magic Mouthwash Adult Liq) 10 ml QID SWISH- SWAL Last administered on 05/14/17 22:09; Start 05/14/17 at 13:00 Methylprednisolone Sodium Succinate 40 mg 40 mg Q8H IV Last administered on 04:41; Start 05/14/17 at 20:00 Piperacillin Sod/ Tazobactam Sod (Zosyn 4.5 Gm Premix) 100 ml @ 200 mls/hr Q6H IV Last administered on 05/15/17 04:00; Start 05/15/17 at 04:00 Urinary Catheter: No Vascular Central Line Catheter: No A/P Problem List: (1) Dental infection ICD Code: K04.7 Status: Acute (2) Pneumonia ICD Code: J18.9 Status: Acute (3) Lung cancer, primary, with metastasis from lung to other site ICD Code: C34.90 Status: Acute (4) Brain mass ICD Code: G93.9 Status: Acute (5) Brain edema ICD Code: G93.6 Status: Acute (6) Lung tumor ICD Code: D49.1 Status: Acute Assessment and Plan Pneumonia. We'll treat with antibiotics as well as Mucinex as well as duo nebs and steroids oxygen incentive spirometry Recent right gum surgery. Now his facial swelling on the right side of her face the antibiotics that I have her on will cover this also. History of tobacco abuse smoking cessation recommended Lung cancer under the care of Kvng Stokes of oncology AT [facility] History of lung cancer with brain metastases and metastases to the bone Has undergone gamma knife to the brain by Dr. Love at [facility] The patient has thrush that has improved in her mouth Deconditioning Will ask physical therapy and occupational therapy to eval and treat A.m. labs Consult pulmonary and consult case management Discussion with family. May be interested in hospice We will ask palliative care consult Problem Qualifiers (1) Pneumonia: Qualified Code: J18.1 - Pneumonia of left lower lobe due to infectious organism Ariel Harley DO May 15, 2017 09:01
[2017-05-15] MEDS ORDERED: MAGNESIUM HYDROXIDE SUSP 30 ML CUP PO PRN (09:15)
[2017-05-15] MEDS ORDERED: BISACODYL 10 MG SUPP PR PRN (09:15)
[2017-05-15] MEDS: guaiFENesin E.R. 600 MG TAB PO SCH ×2 (09:53→19:49)
[2017-05-15] MEDS: NYSTAT/DIPHENHY/LIDO MOUTHWASH (Adult) 120ML SWISH-SWAL SCH ×4 (09:54→20:01)
[2017-05-15] MEDS: levETIRAcetam 500 MG TAB PO SCH ×2 (09:54→19:48)
[2017-05-15] MEDS: BUDESONIDE-FORMOTEROL 160/4.5 MCG INHALER INH SCH ×2 (09:55→19:53)
[2017-05-15] MEDS: DOCUSATE SODIUM 50 MG/SENNA 8.6 MG TAB PO SCH ×2 (09:59→19:48)
[2017-05-15] MEDS: SODIUM CHLORIDE 0.9% FLUSH 10 ML FLUSH IV FLUSH SCH ×2 (10:13→19:52)
--- NOTE | 2017-05-15 12:18 | OTSOAPIP ---
10 AM HOME HEALTH AND FAMILY WITH PATIENT. WILL REATTEMPT LATER. Therapist: Dominga Guan OTR/L Signature on file
[2017-05-15 13:03] LABS: AUTOMATED NEUTROPHIL # 7.2 TH/MM3 (1.8-7.7); BASOPHIL % 0.1 % (0.0-2.0); HEMO FLAGS DIFF FINAL; LYMPH % 4.8 % (9.0-44.0); LYMPHOCYTE # 0.4 TH/MM3 (1.0-4.8); MEAN CORPUSCULAR HEMOGLOBIN 29.5 PG (27.0-34.0); MEAN CORPUSCULAR HGB CONC 33.6 % (32.0-36.0); MONO % 6.9 % (0.0-8.0); NEUT % 88.2 % (16.0-70.0); PLATELET COUNT 215 TH/MM3 (150-450); RED BLOOD COUNT 3.97 MIL/MM3 (4.00-5.30); RED CELL DISTRIBUTION WIDTH 14.8 % (11.6-17.2); WHITE BLOOD COUNT 8.1 TH/MM3 (4.0-11.0)
[2017-05-15 13:38] LABS: BICARBONATE 28.2 MEQ/L (21.0-32.0); CALCIUM-PROTEIN CORRECTED 8.2 MG/DL (8.5-10.1); TOTAL BILIRUBIN ADULT 0.3 MG/DL (0.2-1.0)
[2017-05-15 13:44] LABS: POTASSIUM 2.5 MEQ/L (3.5-5.1)
[2017-05-15] MEDS ORDERED: POTASSIUM CHLORIDE 20 MEQ CONTROLLED RELEASE TAB PO ONE ×2 (15:30→19:30)
[2017-05-15] MEDS: SODIUM CHLOR 0.9% 1000 ML INJ 1,000 ML IV SCH (15:46)
[2017-05-15] MEDS: VANCOMYCIN 1,000 MG/NS 250 ML IV SCH ×2 (18:49)
[2017-05-15] MEDS: ACETAMINOPHEN 325 MG TAB PO PRN (19:39)
[2017-05-15] MEDS: ENOXAPARIN SODIUM 40 MG/0.4 ML SYRINGE SQ SCH (19:50)
[2017-05-15] MEDS: AZITHROMYCIN INJ 500 MG in SODIUM CHLOR 0.9% 250 ML INJ 250 ML IV SCH (19:50)
[2017-05-15] MEDS: RESP: ALBUTEROL 2.5 MG/IPRATROPIUM 0.5 MG NEB (SCH) INH (20:10)
[2017-05-15] MEDS: TEMAZEPAM 15 MG CAP PO PRN (23:49)
[2017-05-16] VITALS (10 sets, daily range): BP systolic 109–140; BP diastolic 58–74; PULSE 77–99; RESP 18–20; TEMP 96.2–97.9; O2SAT 93–97
[2017-05-16] MEDS: methylPREDNISolone SOD SUCC 40 MG/1 ML VIAL IV SCH ×3 (03:59→21:47)
[2017-05-16] MEDS: PIPERACIL-TAZO 4.5 GM PREMIX 100 ML IV SCH ×4 (04:00→23:35)
[2017-05-16] MEDS: VANCOMYCIN 1,000 MG/NS 250 ML IV SCH ×4 (04:56→16:45)
[2017-05-16] MEDS: SODIUM CHLOR 0.9% 1000 ML INJ 1,000 ML IV SCH ×2 (05:32→14:02)
[2017-05-16 05:42] LABS: AUTOMATED NEUTROPHIL # 7.4 TH/MM3 (1.8-7.7); HEMATOCRIT 31.3 % (35.0-46.0); HEMO FLAGS DIFF FINAL; LYMPH % 5.7 % (9.0-44.0); LYMPHOCYTE # 0.5 TH/MM3 (1.0-4.8); MEAN CELL VOLUME 86.9 FL (80.0-100.0); MEAN CORPUSCULAR HEMOGLOBIN 29.8 PG (27.0-34.0); MEAN CORPUSCULAR HGB CONC 34.3 % (32.0-36.0); MONO % 4.8 % (0.0-8.0); NEUT % 89.5 % (16.0-70.0); PLATELET COUNT 227 TH/MM3 (150-450); RED CELL DISTRIBUTION WIDTH 14.3 % (11.6-17.2); WHITE BLOOD COUNT 8.3 TH/MM3 (4.0-11.0)
[2017-05-16 06:25] LABS: BICARBONATE 27.4 MEQ/L (21.0-32.0); CALCIUM-PROTEIN CORRECTED 8.6 MG/DL (8.5-10.1); MAGNESIUM 2.8 MG/DL (1.5-2.5); POTASSIUM 3.3 MEQ/L (3.5-5.1); TOTAL BILIRUBIN ADULT 0.3 MG/DL (0.2-1.0)
[2017-05-16] MEDS: RESP: ALBUTEROL 2.5 MG/IPRATROPIUM 0.5 MG NEB (SCH) INH ×3 (08:39→21:12)
[2017-05-16] MEDS: SODIUM CHLORIDE 0.9% FLUSH 10 ML FLUSH IV FLUSH SCH ×2 (09:00→22:01)
[2017-05-16] MEDS: BUDESONIDE-FORMOTEROL 160/4.5 MCG INHALER INH SCH ×2 (09:00→21:58)
[2017-05-16] MEDS: guaiFENesin E.R. 600 MG TAB PO SCH ×2 (09:00→21:46)
[2017-05-16] MEDS: levETIRAcetam 500 MG TAB PO SCH ×2 (09:00→21:46)
[2017-05-16] MEDS: PANTOPRAZOLE SOD 40 MG DELAYED RELEASE TAB PO SCH (09:00)
[2017-05-16] MEDS: NYSTAT/DIPHENHY/LIDO MOUTHWASH (Adult) 120ML SWISH-SWAL SCH ×4 (09:00→21:44)
[2017-05-16] MEDS: DOCUSATE SODIUM 50 MG/SENNA 8.6 MG TAB PO SCH ×2 (09:00→21:00)
--- NOTE | 2017-05-16 14:52 | HHI.PR ---
Subjective Remarks 66-year-old female complains of pain and swelling to the right side of face, shortness of breath, bilateral ankle swelling. Patient has history of metastatic lung CA. 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 Patient had infusion of medication yesterday for osteoporosis. Patient does not know the name of that. Patient has been seen by oncologist in the last month for her cancer. Patient had dental procedure done few days ago on the right gum. Patient states that she has increasing pain and swelling of the right side of face since yesterday. Patient also had increasing weakness since yesterday. Patient complaining of shortness of breath this morning. Patient shortness of breath and increased ankle swelling since last night. Patient denies any fever chills. Patient denies any chest pain. Patient denies abdominal pain. Patient denies any nausea vomiting diarrhea. Patient denies any dysuria or frequency. Patient denies any back pain. Was found to have pneumonia. Will be treated with antibiotics will be treated with steroids. Mucinex incentive spirometry as well as fluids and duo nebs 8-18 discussion with patient and RN daughter and . Patient's primary care physician is Dr. Maria De Jesus Saavedra Her oncologist here is Current oncologist in [place] is Dr. ANN Had refused steroids yesterday. We'll make sure she gets steroids today and is on a scheduled IV treatment wIll consult physical therapy occupational therapy and speech therapy Patient needs swallow eval to make sure she is not aspirating HAS THRUSH 8-19 MUCH more alert today Refill she is breathing better Is much more awake and alert today Needs to have a bowel movement and is constipated Discussed with patient, RN, and family Steroids Being tapered down A.m. labs 8-20 NO GROWTH IN CULTURES SO FAR HOPEFULLY DC TO HOME TOMORROW DW PATIENT AND RN BREATHING BETTER Objective Vitals Vital Signs Date Time Temp Pulse Resp B/P (MAP) Pulse Ox O2 Delivery O2 Flow Rate FiO2 05/16/17 12:00 96.9 97 20 122/58 (79) 94 05/16/17 08:39 96 21 05/16/17 08:00 96.5 80 20 113/58 (76) 97 05/16/17 04:00 96.2 99 18 122/58 (79) 93 05/16/17 00:00 97.9 91 18 109/74 (86) 93 05/15/17 21:00 18 05/15/17 20:12 96 05/15/17 20:00 97.1 71 17 133/63 (86) 94 05/15/17 16:01 97.8 77 21 124/60 (81) 96 I/O 05/15/17 05/15/17 05/15/17 05/16/17 05/16/17 05/16/17 07:00 15:00 23:00 07:00 15:00 23:00 Intake Total 993 ml 480 ml 480 ml 480 ml Balance 993 ml 480 ml 480 ml 480 ml Intake Oral 240 ml 480 ml 480 ml 480 ml IV Total 753 ml # Voids 1 3 3 2 # Bowel Movements 1 1 2 Result Diagram: 05/16/17 0515 05/16/17 0333 Other Results Laboratory Tests Test 05/13/17 20:13 05/14/17 07:30 05/14/17 07:36 05/15/17 04:40 Lactic Acid Level 1.4 mmol/L White Blood Count 6.0 TH/MM3 Red Blood Count 4.04 MIL/MM3 Hemoglobin 12.1 GM/DL Hematocrit 35.7 % Mean Corpuscular Volume 88.4 FL Mean Corpuscular Hemoglobin 30.1 PG Mean Corpuscular Hemoglobin Concent 34.0 % Red Cell Distribution Width 14.8 % Platelet Count 166 TH/MM3 Mean Platelet Volume 7.7 FL Neutrophils (%) (Auto) 80.7 % Lymphocytes (%) (Auto) 7.7 % Monocytes (%) (Auto) 9.6 % Eosinophils (%) (Auto) 1.5 % Basophils (%) (Auto) 0.5 % Neutrophils # (Auto) 4.8 TH/MM3 Lymphocytes # (Auto) 0.5 TH/MM3 Monocytes # (Auto) 0.6 TH/MM3 Eosinophils # (Auto) 0.1 TH/MM3 Basophils # (Auto) 0.0 TH/MM3 CBC Comment DIFF FINAL Differential Comment Blood Urea Nitrogen 5 MG/DL Creatinine 0.59 MG/DL Random Glucose 130 MG/DL Total Protein 5.6 GM/DL Albumin 2.2 GM/DL Calcium Level 7.3 MG/DL Phosphorus Level 2.2 MG/DL Magnesium Level 2.1 MG/DL Alkaline Phosphatase 51 U/L Aspartate Amino Transf (AST/SGOT) 11 U/L Alanine Aminotransferase (ALT/SGPT) 20 U/L Total Bilirubin 0.6 MG/DL Sodium Level 134 MEQ/L Potassium Level 4.1 MEQ/L Chloride Level 97 MEQ/L Carbon Dioxide Level 32.4 MEQ/L Anion Gap 5 MEQ/L Estimat Glomerular Filtration Rate 101 ML/MIN Hemoglobin A1c 6.1 % Protein Corrected Calcium 8.1 MG/DL Free Thyroxine 1.21 NG/DL Thyroid Stimulating Hormone 3rd Gen 0.724 uIU/ML Vancomycin Level Trough 6.0 MCG/ML Test 05/15/17 12:08 05/16/17 03:33 05/16/17 05:15 White Blood Count 8.1 TH/MM3 8.3 TH/MM3 Red Blood Count 3.97 MIL/MM3 3.60 MIL/MM3 Hemoglobin 11.7 GM/DL 10.7 GM/DL Hematocrit 35.0 % 31.3 % Mean Corpuscular Volume 88.0 FL 86.9 FL Mean Corpuscular Hemoglobin 29.5 PG 29.8 PG Mean Corpuscular Hemoglobin Concent 33.6 % 34.3 % Red Cell Distribution Width 14.8 % 14.3 % Platelet Count 215 TH/MM3 227 TH/MM3 Mean Platelet Volume 7.6 FL 7.8 FL Neutrophils (%) (Auto) 88.2 % 89.5 % Lymphocytes (%) (Auto) 4.8 % 5.7 % Monocytes (%) (Auto) 6.9 % 4.8 % Eosinophils (%) (Auto) 0.0 % 0.0 % Basophils (%) (Auto) 0.1 % 0.0 % Neutrophils # (Auto) 7.2 TH/MM3 7.4 TH/MM3 Lymphocytes # (Auto) 0.4 TH/MM3 0.5 TH/MM3 Monocytes # (Auto) 0.6 TH/MM3 0.4 TH/MM3 Eosinophils # (Auto) 0.0 TH/MM3 0.0 TH/MM3 Basophils # (Auto) 0.0 TH/MM3 0.0 TH/MM3 CBC Comment DIFF FINAL DIFF FINAL Differential Comment Blood Urea Nitrogen 8 MG/DL 9 MG/DL Creatinine 0.71 MG/DL 0.40 MG/DL Random Glucose 214 MG/DL 138 MG/DL Total Protein 5.6 GM/DL 5.0 GM/DL Albumin 2.1 GM/DL 2.0 GM/DL Calcium Level 7.4 MG/DL 7.4 MG/DL Phosphorus Level 1.4 MG/DL 1.5 MG/DL Magnesium Level 3.0 MG/DL 2.8 MG/DL Alkaline Phosphatase 49 U/L 45 U/L Aspartate Amino Transf (AST/SGOT) 11 U/L 15 U/L Alanine Aminotransferase (ALT/SGPT) 24 U/L 27 U/L Total Bilirubin 0.3 MG/DL 0.3 MG/DL Sodium Level 138 MEQ/L 142 MEQ/L Potassium Level 2.5 MEQ/L 3.3 MEQ/L Chloride Level 101 MEQ/L 107 MEQ/L Carbon Dioxide Level 28.2 MEQ/L 27.4 MEQ/L Anion Gap 9 MEQ/L 8 MEQ/L Estimat Glomerular Filtration Rate 82 ML/MIN 159 ML/MIN Protein Corrected Calcium 8.2 MG/DL 8.6 MG/DL Imaging Last Impressions CT Angiography 05/13/17 1249 Signed Impressions: Service Date/Time: April 15:04 - CONCLUSION: 1. No evidence of pulmonary embolism. 2. Mild interval increase in size of the known large left upper lobe tumor mass. 3. New focal air consolidative opacity along the lateral left lower lobe which may represent tumor versus post obstructive pneumonia. 4. Small amount of pericardial fluid. 5. No spinal or hilar adenopathy is again noted. 6. New small bilateral pleural effusions right greater than left. Randy Edwards MD Chest X-Ray 05/13/17 1240 Signed Impressions: Service Date/Time: , May 13, 2017 13:07 - CONCLUSION: 1. Unchanged masslike consolidation within the left upper lobe. 2. No consolidation within the peripheral aspects of the left lower lobe. Alverto Orr Jr., MD Maxillofacial CT 05/13/17 0000 Signed Impressions: Service Date/Time: April 15:01 - CONCLUSION: 1. Streak artifact from multiple dental fillings in the mandible and maxilla. 2. The bony structures otherwise intact with no evidence of metastatic disease. 3. The known metastatic lesion in right parietal lobe is faintly visualized. Randy Edwards MD Objective Remarks GENERAL: This is a cachectic, well-developed patient, in less apparent distress. Not lethargic at all today SKIN: No rashes, ecchymoses or lesions. Cool and dry. HEAD: Atraumatic. Normocephalic. No temporal or scalp tenderness. EYES: Pupils equal round and reactive. Extraocular motions intact. No scleral icterus. No injection or drainage. ENT: Nose without bleeding, purulent drainage or septal hematoma. Throat without erythema, tonsillar hypertrophy or exudate. Uvula midline. Airway patent. Right side of her face is less swollen and tender-- tongue is midline-- thrush seems to have improved NECK: Trachea midline. No JVD or lymphadenopathy. Supple, nontender, no meningeal signs. CARDIOVASCULAR: Regular rate and rhythm without murmurs, gallops, or rubs. S1 and S2 no S3 or S4 no heave or thrill or rub or gallop RESPIRATORY: Coarse breath sounds bilaterally. Breath sounds equal bilaterally. Scattered rhonchi GASTROINTESTINAL: Abdomen soft, non-tender, nondistended. No hepato-splenomegaly , or palpable masses. No guarding. MUSCULOSKELETAL: Extremities without clubbing, cyanosis, or edema. No joint tenderness, effusion, or edema noted. No calf tenderness. Negative Homans sign bilaterally. NEUROLOGICAL: Awake and alert. Cranial nerves II through XII intact. Motor and sensory grossly within normal limits. Five out of 5 muscle strength in all muscle groups. Normal speech. Insight and judgment are limited to illness Mood and behavior are somewhat improved Medications and IVs Current Medications Sodium Chloride 1,000 ml @ 100 mls/hr Q10H IV Last administered on 05/13/17 13:14; Start 05/13/17 at 12:45; Stop 05/13/17 at 18:03; Status DC Morphine Sulfate (Morphine Inj) 2 mg ONCE ONCE IV PUSH Last administered on 13:15; Start 05/13/17 at 12:45; Stop 05/13/17 at 12:49; Status DC Ondansetron HCl (Zofran Inj) 4 mg ONCE ONCE IV PUSH Last administered on 13:15; Start 05/13/17 at 12:45; Stop 05/13/17 at 12:49; Status DC Ampicillin Sodium/ Sulbactam Sodium 3 gm/Sodium Chloride 100 ml @ 200 mls/hr ONCE ONCE IV Last administered on 05/13/17 13:14; Start 05/13/17 at 12:45; Stop 8/17/17 at 13:14; Status DC Albuterol/ Ipratropium (Duoneb Neb) 1 ampule ONCE ONCE INH Last administered on 05/13/17 14:35; Start 05/13/17 at 14:15; Stop 05/13/17 at 14:16; Status DC Iohexol (Omnipaque 350 Inj) 66 ml STK-MED ONCE IV ; Start 05/13/17 at 15:24; Stop 05/13/17 at 15:25; Status DC Vancomycin HCl 1000 mg/Sodium Chloride 250 ml @ 250 mls/hr ONCE ONCE IV Last administered on 05/13/17 17:27; Start 05/13/17 at 16:45; Stop 05/13/17 at 17:44 ; Status DC Alprazolam (Xanax) 0.5 mg HS PRN PO SLEEP; Start 05/13/17 at 17:30 Levetriacetam (Keppra) 500 mg Q12HR PO Last administered on 05/16/17 09:00; Start 05/13/17 at 21:00 Temazepam (Restoril) 15 mg HS PRN PO INSOMNIA Last administered on 05/15/17 23 :49; Start 05/13/17 at 17:30 Sodium Chloride 1,000 ml @ 100 mls/hr Q10H IV Last administered on 05/16/17 14:02; Start 05/13/17 at 17:32 Sodium Chloride (NS Flush) 2 ml UNSCH PRN IV FLUSH FLUSH AFTER USING IV ACCESS ; Start 05/13/17 at 17:45; Stop 05/13/17 at 18:02; Status DC Sodium Chloride (NS Flush) 2 ml BID IV FLUSH ; Start 05/13/17 at 21:00; Stop at 21:00; Status DC Acetaminophen (Tylenol) 650 mg Q4H PRN PO TEMP > 100.4 Last administered on 12:04; Start 05/13/17 at 17:45 Ondansetron HCl (Zofran Inj) 4 mg Q6H PRN IVP NAUSEA OR VOMITING; Start at 17:45 Metoclopramide HCl (Reglan Inj) 5 mg Q6H PRN IV PUSH NAUSEA OR VOMITING; Start 05/13/17 at 17:45 Prochlorperazine (Compazine Supp) 25 mg Q12H PRN RECTAL NAUSEA OR VOMITING; Start 05/13/17 at 17:45 Enoxaparin Sodium (Lovenox Inj) 40 mg Q24H SQ Last administered on 05/15/17 19 :50; Start 05/13/17 at 20:00 Acetaminophen (Tylenol) 650 mg Q6H PRN PO PAIN SCALE 1 TO 2 Last administered on 05/15/17 19:39; Start 05/13/17 at 17:45 Acetaminophen/ Hydrocodone Bitart (Manning 5-325 Mg) 1 tab Q4H PRN PO PAIN SCALE 3 TO 5; Start 05/13/17 at 17:45 Acetaminophen/ Hydrocodone Bitart (Manning 10-325 Mg) 1 tab Q4H PRN PO PAIN SCALE 6 TO 10; Start 05/13/17 at 17:45 Morphine Sulfate (Morphine Inj) 2 mg Q3H PRN IV Pain 3-5; if unable to take PO ; Start 05/13/17 at 17:45 Morphine Sulfate (Morphine Inj) 4 mg Q3H PRN IV Pain 6-10;if unable to take PO ; Start 05/13/17 at 17:45 Naloxone HCl (Narcan Inj) 0.4 mg UNSCH PRN IV SEE LABEL COMMENTS; Start at 17:45 Senna/Docusate Sodium (Chandni-Colace) 1 tab BID PO Last administered on 20:35; Start 05/13/17 at 21:00; Stop 05/15/17 at 09:23; Status DC Magnesium Hydroxide (Milk Of Magnesia Liq) 30 ml Q12H PRN PO MILD - MODERATE CONSTIPATION Last administered on 05/14/17 22:09; Start 05/13/17 at 17:45; Stop 05/15/17 at 09:25; Status DC Sennosides (Senokot) 17.2 mg Q12H PRN PO MODERATE - SEVERE CONSTIPATION; Start 05/13/17 at 17:45 Bisacodyl (Dulcolax Supp) 10 mg DAILY PRN RECTAL SEVERE CONSITIPATION; Start at 17:45 Lactulose (Lactulose Liq) 30 ml DAILY PRN PO SEVERE CONSITIPATION Last administered on 05/15/17 18:57; Start 05/13/17 at 17:45 Sodium Chloride (NS Flush) 2 ml UNSCH PRN IV FLUSH FLUSH AFTER USING IV ACCESS ; Start 05/13/17 at 17:45 Sodium Chloride (NS Flush) 2 ml BID IV FLUSH Last administered on 05/15/17 10: 13; Start 05/13/17 at 21:00 Piperacillin Sod/ Tazobactam Sod 100 ml @ 200 mls/hr Q6H IV Last administered on 05/14/17 22:09; Start 05/13/17 at 20:00; Stop 05/14/17 at 23:39; Status DC Azithromycin 500 mg/Sodium Chloride 250 ml @ 250 mls/hr Q24H IV Last administered on 05/15/17 19:50; Start 05/13/17 at 20:00 Pharmacy Profile Note 0 ml @ 0 mls/hr UNSCH OTHER ; Start 05/13/17 at 17:45 Albuterol/ Ipratropium (Duoneb Neb) 1 ampule Q4HR NEB PRN INH SHORTNESS OF BREATH Last administered on 05/14/17 22:26; Start 05/13/17 at 17:45 Methylprednisolone Sodium Succinate (SoluMEDROL INJ) 40 mg Q12H IV ; Start 05/13 at 18:00; Stop 05/14/17 at 10:46; Status DC Guaifenesin (Mucinex Er) 600 mg BID PO Last administered on 05/16/17 09:00; Start 05/13/17 at 21:00 Pantoprazole Sodium (Protonix) 40 mg ONCE ONCE PO Last administered on 18:54; Start 05/13/17 at 18:00; Stop 05/13/17 at 18:12; Status DC Pantoprazole Sodium (Protonix) 40 mg DAILY PO ; Start 05/14/17 at 09:00 Vancomycin HCl 1000 mg/Sodium Chloride 250 ml @ 250 mls/hr ONCE ONCE IV ; Start 05/13/17 at 18:30; Stop 05/13/17 at 19:29; Status DC Vancomycin HCl 750 mg/Sodium Chloride 257.5 ml @ 250 mls/hr Q12H IV Last administered on 05/15/17 05:55; Start 05/14/17 at 05:00; Stop 05/15/17 at 10:20 ; Status DC Miscellaneous Information SPECIFIC LAB TO BE TUTU... ONCE ONCE .XX Last administered on 05/15/17 04:50; Start 05/15/17 at 04:45; Stop 05/15/17 at 04:46 ; Status DC Budesonide/ Formoterol Fumarate (Symbicort 160-4.5 Inh) 2 puff Q12HR INH Last administered on 05/15/17 09:55; Start 05/13/17 at 21:00; Stop 05/15/17 at 12:03 ; Status DC Furosemide (Lasix Inj) 20 mg ONCE ONCE IV PUSH Last administered on 05/14/17 05:25; Start 05/13/17 at 22:30; Stop 05/13/17 at 22:31; Status DC Methylprednisolone Sodium Succinate (SoluMEDROL INJ) 125 mg NOW ONCE IV Last administered on 05/14/17 11:47; Start 05/14/17 at 11:00; Stop 05/14/17 at 11:01 ; Status DC Methylprednisolone Sodium Succinate (SoluMEDROL INJ) 40 mg Q6H IV PUSH ; Start 05/14/17 at 17:00; Stop 05/14/17 at 17:00; Status DC Multi-Ingredient Mouthwash/Gargle (Magic Mouthwash Adult Liq) 10 ml QID SWISH- SWAL Last administered on 05/16/17 14:01; Start 05/14/17 at 13:00 Methylprednisolone Sodium Succinate (SoluMEDROL INJ) 40 mg Q8H IV Last administered on 05/16/17 12:00; Start 05/14/17 at 20:00 Piperacillin Sod/ Tazobactam Sod 100 ml @ 200 mls/hr Q6H IV Last administered on 05/16/17 10:00; Start 05/15/17 at 04:00 Senna/Docusate Sodium (Chandni-Colace) 2 tab BID PO Last administered on 19:48; Start 05/15/17 at 09:15 Bisacodyl (Dulcolax Supp) 10 mg DAILY PRN [place] CONSTIPATION; Start 05/15/17 at 09 :15; Status UNV Magnesium Hydroxide (Milk Of Magnesia Liq) 30 ml Q6H PRN PO MODERATE - SEVERE CONSTIPATION; Start 05/15/17 at 09:15 Vancomycin HCl 1000 mg/Sodium Chloride 250 ml @ 250 mls/hr Q12H IV Last administered on 05/16/17 04:56; Start 05/15/17 at 17:00 Miscellaneous Information SPECIFIC LAB TO BE ... ONCE ONCE .XX ; Start 05/17 at 04:45; Stop 05/17/17 at 04:46 Albuterol/ Ipratropium (Duoneb Neb) 1 ampule TID NEB INH Last administered on 05/16/17 08:39; Start 05/15/17 at 14:00 Budesonide/ Formoterol Fumarate (Symbicort 160-4.5 Inh) 1 puff Q12HR INH Last administered on 05/16/17 09:00; Start 05/15/17 at 21:00 Potassium Chloride (KCl) 40 meq NOW ONCE PO Last administered on 05/15/17 15: 47; Start 05/15/17 at 15:30; Stop 05/15/17 at 15:31; Status DC Potassium Chloride (KCl) 40 meq UNSCH X1 ONCE PO Last administered on 19:48; Start 05/15/17 at 19:30; Stop 05/15/17 at 19:31; Status DC Urinary Catheter: No Vascular Central Line Catheter: No A/P Problem List: (1) Dental infection ICD Code: K04.7 - Periapical abscess without sinus Status: Acute (2) Pneumonia ICD Code: J18.9 - Pneumonia, unspecified organism Status: Acute (3) Lung cancer, primary, with metastasis from lung to other site ICD Code: C34.90 - Malignant neoplasm of unspecified part of unspecified bronchus or lung Status: Acute (4) Brain mass ICD Code: G93.9 - Disorder of brain, unspecified Status: Acute (5) Brain edema ICD Code: G93.6 - Cerebral edema Status: Acute (6) Lung tumor ICD Code: D49.1 - Neoplasm of unspecified behavior of respiratory system Status: Acute Assessment and Plan Pneumonia. We'll treat with antibiotics as well as Mucinex as well as duo nebs and steroids oxygen incentive spirometry Recent right gum surgery. Now his facial swelling on the right side of her face the antibiotics that I have her on will cover this also. History of tobacco abuse smoking cessation recommended Lung cancer under the care of Kvng Stokes of oncology AT [facility] History of lung cancer with brain metastases and metastases to the bone Has undergone gamma knife to the brain by Dr. Love at [facility] The patient has thrush that has improved in her mouth Deconditioning Will ask physical therapy and occupational therapy to eval and treat A.m. labs Consult pulmonary and consult case management Discussion with family. May be interested in hospice We will ask palliative care consult HYPOKALEMIA WILL REPLACE AM LABS Problem Qualifiers (1) Pneumonia: Ariel Harley DO May 16, 2017 14:52
[2017-05-16] MEDS ORDERED: POTASSIUM CHLORIDE 20 MEQ CONTROLLED RELEASE TAB PO ONE (15:00)
[2017-05-16] MEDS: RESP: ALBUTEROL 2.5 MG/IPRATROPIUM 0.5 MG NEB (PRN) INH (16:47)
--- NOTE | 2017-05-16 17:07 | OTSOAPIP ---
TIME SESSION COMPLETED: 930 PATIENT UP WALKING IN ROOM WITH NO BALANCE DEFICITS. PATIENT COMPLETED HER OWN SELF CARE. PATIENT AND REPORT NO FUNCTIONAL DEFICITS AND NO EQUIPMENT REQUIRED. WILL DC OT SERVICES. Therapist: Dominga Guan OTR/L Signature on file
[2017-05-16] MEDS: ENOXAPARIN SODIUM 40 MG/0.4 ML SYRINGE SQ SCH (21:47)
[2017-05-16] MEDS: AZITHROMYCIN INJ 500 MG in SODIUM CHLOR 0.9% 250 ML INJ 250 ML IV SCH (21:55)
[2017-05-16] MEDS: ACETAMINOPHEN 325 MG TAB PO PRN (22:05)
[2017-05-16] MEDS: TEMAZEPAM 15 MG CAP PO PRN (22:05)
[2017-05-17] VITALS (7 sets, daily range): BP systolic 111–127; BP diastolic 55–62; PULSE 59–97; RESP 17–20; TEMP 96.6–97.6; O2SAT 94–97
[2017-05-17] MEDS: methylPREDNISolone SOD SUCC 40 MG/1 ML VIAL IV SCH (03:54)
[2017-05-17] MEDS: SODIUM CHLORIDE 0.9% FLUSH 10 ML FLUSH IV FLUSH PRN ×2 (03:55→07:21)
[2017-05-17] MEDS: PIPERACIL-TAZO 4.5 GM PREMIX 100 ML IV SCH (03:58)
[2017-05-17] MEDS ORDERED: PHARMACY ORDERED LAB ONE (04:45)
[2017-05-17 05:06] LABS: AUTOMATED NEUTROPHIL # 7.4 TH/MM3 (1.8-7.7); BASOPHIL % 0.3 % (0.0-2.0); HEMATOCRIT 35.1 % (35.0-46.0); HEMO FLAGS DIFF FINAL; LYMPH % 4.8 % (9.0-44.0); LYMPHOCYTE # 0.4 TH/MM3 (1.0-4.8); MEAN CELL VOLUME 88.2 FL (80.0-100.0); MEAN CORPUSCULAR HEMOGLOBIN 29.3 PG (27.0-34.0); MEAN CORPUSCULAR HGB CONC 33.3 % (32.0-36.0); NEUT % 90.9 % (16.0-70.0); PLATELET COUNT 272 TH/MM3 (150-450); RED BLOOD COUNT 3.98 MIL/MM3 (4.00-5.30); RED CELL DISTRIBUTION WIDTH 14.6 % (11.6-17.2); WHITE BLOOD COUNT 8.2 TH/MM3 (4.0-11.0)
[2017-05-17] MEDS: VANCOMYCIN 1,000 MG/NS 250 ML IV SCH ×2 (05:07)
[2017-05-17 05:30] LABS: BICARBONATE 24.4 MEQ/L (21.0-32.0); CALCIUM-PROTEIN CORRECTED 7.8 MG/DL (8.5-10.1); MAGNESIUM 2.5 MG/DL (1.5-2.5); POTASSIUM 3.2 MEQ/L (3.5-5.1); TOTAL BILIRUBIN ADULT 0.3 MG/DL (0.2-1.0)
[2017-05-17] MEDS: RESP: ALBUTEROL 2.5 MG/IPRATROPIUM 0.5 MG NEB (SCH) INH (08:33)
--- NOTE | 2017-05-17 09:09 | HHI.PR ---
Subjective Remarks 66-year-old female complains of pain and swelling to the right side of face, shortness of breath, bilateral ankle swelling. Patient has history of metastatic lung CA. 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 Patient had infusion of medication yesterday for osteoporosis. Patient does not know the name of that. Patient has been seen by oncologist in the last month for her cancer. Patient had dental procedure done few days ago on the right gum. Patient states that she has increasing pain and swelling of the right side of face since yesterday. Patient also had increasing weakness since yesterday. Patient complaining of shortness of breath this morning. Patient shortness of breath and increased ankle swelling since last night. Patient denies any fever chills. Patient denies any chest pain. Patient denies abdominal pain. Patient denies any nausea vomiting diarrhea. Patient denies any dysuria or frequency. Patient denies any back pain. Was found to have pneumonia. Will be treated with antibiotics will be treated with steroids. Mucinex incentive spirometry as well as fluids and duo nebs 8-18 discussion with patient and RN daughter and . Patient's primary care physician is Dr. Maria De Jesus Saavedra Her oncologist here is Current oncologist in [place] is Dr. ANN Had refused steroids yesterday. We'll make sure she gets steroids today and is on a scheduled IV treatment wIll consult physical therapy occupational therapy and speech therapy Patient needs swallow eval to make sure she is not aspirating HAS THRUSH 8-19 MUCH more alert today Refill she is breathing better Is much more awake and alert today Needs to have a bowel movement and is constipated Discussed with patient, RN, and family Steroids Being tapered down A.m. labs 8-20 NO GROWTH IN CULTURES SO FAR HOPEFULLY DC TO HOME TOMORROW DW PATIENT AND RN BREATHING BETTER 8-21 patient is feeling better. Wants to go home. Had some diarrhea today. But also took medications due to constipation Wants to go home Primary care physician is Dr. Maria De Jesus Saavedra Patient can be discharged home today. Switch to by mouth antibiotics and discharge Objective Vitals Vital Signs Date Time Temp Pulse Resp B/P (MAP) Pulse Ox O2 Delivery O2 Flow Rate FiO2 05/17/17 08:57 97.6 70 20 111/62 (78) 94 05/17/17 04:25 90 05/17/17 04:00 96.6 74 18 118/55 (76) 96 05/17/17 01:12 59 05/17/17 00:00 96.7 97 17 127/60 (82) 96 05/16/17 21:14 95 05/16/17 20:03 84 05/16/17 20:00 96.8 89 18 128/64 (85) 95 05/16/17 16:36 96.9 86 20 140/68 (92) 95 05/16/17 16:00 80 05/16/17 12:00 96.9 97 20 122/58 (79) 94 05/16/17 12:00 91 I/O 05/16/17 05/16/17 05/16/17 05/17/17 05/17/17 05/17/17 07:00 15:00 23:00 07:00 15:00 23:00 Intake Total 480 ml 1772 ml 610 ml 280 ml Balance 480 ml 1772 ml 610 ml 280 ml Intake Oral 480 ml 480 ml 240 ml IV Total 1292 ml 370 ml 280 ml # Voids 2 4 3 # Bowel Movements 2 8 2 Result Diagram: 05/17/17 0450 05/17/17 0450 Other Results Laboratory Tests Test 05/15/17 04:40 05/15/17 12:08 05/16/17 03:33 05/16/17 05:15 Vancomycin Level Trough 6.0 MCG/ML White Blood Count 8.1 TH/MM3 8.3 TH/MM3 Red Blood Count 3.97 MIL/MM3 3.60 MIL/MM3 Hemoglobin 11.7 GM/DL 10.7 GM/DL Hematocrit 35.0 % 31.3 % Mean Corpuscular Volume 88.0 FL 86.9 FL Mean Corpuscular Hemoglobin 29.5 PG 29.8 PG Mean Corpuscular Hemoglobin Concent 33.6 % 34.3 % Red Cell Distribution Width 14.8 % 14.3 % Platelet Count 215 TH/MM3 227 TH/MM3 Mean Platelet Volume 7.6 FL 7.8 FL Neutrophils (%) (Auto) 88.2 % 89.5 % Lymphocytes (%) (Auto) 4.8 % 5.7 % Monocytes (%) (Auto) 6.9 % 4.8 % Eosinophils (%) (Auto) 0.0 % 0.0 % Basophils (%) (Auto) 0.1 % 0.0 % Neutrophils # (Auto) 7.2 TH/MM3 7.4 TH/MM3 Lymphocytes # (Auto) 0.4 TH/MM3 0.5 TH/MM3 Monocytes # (Auto) 0.6 TH/MM3 0.4 TH/MM3 Eosinophils # (Auto) 0.0 TH/MM3 0.0 TH/MM3 Basophils # (Auto) 0.0 TH/MM3 0.0 TH/MM3 CBC Comment DIFF FINAL DIFF FINAL Differential Comment Blood Urea Nitrogen 8 MG/DL 9 MG/DL Creatinine 0.71 MG/DL 0.40 MG/DL Random Glucose 214 MG/DL 138 MG/DL Total Protein 5.6 GM/DL 5.0 GM/DL Albumin 2.1 GM/DL 2.0 GM/DL Calcium Level 7.4 MG/DL 7.4 MG/DL Phosphorus Level 1.4 MG/DL 1.5 MG/DL Magnesium Level 3.0 MG/DL 2.8 MG/DL Alkaline Phosphatase 49 U/L 45 U/L Aspartate Amino Transf (AST/SGOT) 11 U/L 15 U/L Alanine Aminotransferase (ALT/SGPT) 24 U/L 27 U/L Total Bilirubin 0.3 MG/DL 0.3 MG/DL Sodium Level 138 MEQ/L 142 MEQ/L Potassium Level 2.5 MEQ/L 3.3 MEQ/L Chloride Level 101 MEQ/L 107 MEQ/L Carbon Dioxide Level 28.2 MEQ/L 27.4 MEQ/L Anion Gap 9 MEQ/L 8 MEQ/L Estimat Glomerular Filtration Rate 82 ML/MIN 159 ML/MIN Protein Corrected Calcium 8.2 MG/DL 8.6 MG/DL Test 05/17/17 04:50 White Blood Count 8.2 TH/MM3 Red Blood Count 3.98 MIL/MM3 Hemoglobin 11.7 GM/DL Hematocrit 35.1 % Mean Corpuscular Volume 88.2 FL Mean Corpuscular Hemoglobin 29.3 PG Mean Corpuscular Hemoglobin Concent 33.3 % Red Cell Distribution Width 14.6 % Platelet Count 272 TH/MM3 Mean Platelet Volume 7.3 FL Neutrophils (%) (Auto) 90.9 % Lymphocytes (%) (Auto) 4.8 % Monocytes (%) (Auto) 4.0 % Eosinophils (%) (Auto) 0.0 % Basophils (%) (Auto) 0.3 % Neutrophils # (Auto) 7.4 TH/MM3 Lymphocytes # (Auto) 0.4 TH/MM3 Monocytes # (Auto) 0.3 TH/MM3 Eosinophils # (Auto) 0.0 TH/MM3 Basophils # (Auto) 0.0 TH/MM3 CBC Comment DIFF FINAL Differential Comment Blood Urea Nitrogen 11 MG/DL Creatinine 0.64 MG/DL Random Glucose 171 MG/DL Total Protein 5.5 GM/DL Albumin 2.3 GM/DL Calcium Level 7.0 MG/DL Phosphorus Level 2.1 MG/DL Magnesium Level 2.5 MG/DL Alkaline Phosphatase 47 U/L Aspartate Amino Transf (AST/SGOT) 10 U/L Alanine Aminotransferase (ALT/SGPT) 30 U/L Total Bilirubin 0.3 MG/DL Sodium Level 141 MEQ/L Potassium Level 3.2 MEQ/L Chloride Level 106 MEQ/L Carbon Dioxide Level 24.4 MEQ/L Anion Gap 11 MEQ/L Estimat Glomerular Filtration Rate 92 ML/MIN Protein Corrected Calcium 7.8 MG/DL Vancomycin Level Trough 13.0 MCG/ML Imaging Last Impressions CT Angiography 05/13/17 1249 Signed Impressions: Service Date/Time: April 15:04 - CONCLUSION: 1. No evidence of pulmonary embolism. 2. Mild interval increase in size of the known large left upper lobe tumor mass. 3. New focal air consolidative opacity along the lateral left lower lobe which may represent tumor versus post obstructive pneumonia. 4. Small amount of pericardial fluid. 5. No spinal or hilar adenopathy is again noted. 6. New small bilateral pleural effusions right greater than left. Randy Edwards MD Chest X-Ray 05/13/17 1240 Signed Impressions: Service Date/Time: April 13:07 - CONCLUSION: 1. Unchanged masslike consolidation within the left upper lobe. 2. No consolidation within the peripheral aspects of the left lower lobe. Alverto Orr Jr., MD Maxillofacial CT 05/13/17 0000 Signed Impressions: Service Date/Time: April 15:01 - CONCLUSION: 1. Streak artifact from multiple dental fillings in the mandible and maxilla. 2. The bony structures otherwise intact with no evidence of metastatic disease. 3. The known metastatic lesion in right parietal lobe is faintly visualized. Randy Edwards MD Objective Remarks GENERAL: This is a cachectic, well-developed patient, in less apparent distress. Not lethargic at all today SKIN: No rashes, ecchymoses or lesions. Cool and dry. HEAD: Atraumatic. Normocephalic. No temporal or scalp tenderness. EYES: Pupils equal round and reactive. Extraocular motions intact. No scleral icterus. No injection or drainage. ENT: Nose without bleeding, purulent drainage or septal hematoma. Throat without erythema, tonsillar hypertrophy or exudate. Uvula midline. Airway patent. Right side of her face is less swollen and tender-- tongue is midline-- thrush seems to have improved NECK: Trachea midline. No JVD or lymphadenopathy. Supple, nontender, no meningeal signs. CARDIOVASCULAR: Regular rate and rhythm without murmurs, gallops, or rubs. S1 and S2 no S3 or S4 no heave or thrill or rub or gallop RESPIRATORY: Less Coarse breath sounds bilaterally. Breath sounds equal bilaterally. Last Scattered rhonchi GASTROINTESTINAL: Abdomen soft, non-tender, nondistended. No hepato-splenomegaly , or palpable masses. No guarding. MUSCULOSKELETAL: Extremities without clubbing, cyanosis, or edema. No joint tenderness, effusion, or edema noted. No calf tenderness. Negative Homans sign bilaterally. NEUROLOGICAL: Awake and alert. Cranial nerves II through XII intact. Motor and sensory grossly within normal limits. Five out of 5 muscle strength in all muscle groups. Normal speech. Insight and judgment are limited to illness Mood and behavior are improved Medications and IVs Current Medications Sodium Chloride 1,000 ml @ 100 mls/hr Q10H IV Last administered on 05/13/17 13:14; Start 05/13/17 at 12:45; Stop 05/13/17 at 18:03; Status DC Morphine Sulfate (Morphine Inj) 2 mg ONCE ONCE IV PUSH Last administered on 13:15; Start 05/13/17 at 12:45; Stop 05/13/17 at 12:49; Status DC Ondansetron HCl (Zofran Inj) 4 mg ONCE ONCE IV PUSH Last administered on 13:15; Start 05/13/17 at 12:45; Stop 05/13/17 at 12:49; Status DC Ampicillin Sodium/ Sulbactam Sodium 3 gm/Sodium Chloride 100 ml @ 200 mls/hr ONCE ONCE IV Last administered on 05/13/17 13:14; Start 05/13/17 at 12:45; Stop 05/13/17 at 13:14; Status DC Albuterol/ Ipratropium (Duoneb Neb) 1 ampule ONCE ONCE INH Last administered on 05/13/17 14:35; Start 05/13/17 at 14:15; Stop 05/13/17 at 14:16; Status DC Iohexol (Omnipaque 350 Inj) 66 ml STK-MED ONCE IV ; Start 05/13/17 at 15:24; Stop 05/13/17 at 15:25; Status DC Vancomycin HCl 1000 mg/Sodium Chloride 250 ml @ 250 mls/hr ONCE ONCE IV Last administered on 05/13/17 17:27; Start 05/13/17 at 16:45; Stop 05/13/17 at 17:44 ; Status DC Alprazolam (Xanax) 0.5 mg HS PRN PO SLEEP; Start 05/13/17 at 17:30 Levetriacetam (Keppra) 500 mg Q12HR PO Last administered on 05/16/17 21:46; Start 05/13/17 at 21:00 Temazepam (Restoril) 15 mg HS PRN PO INSOMNIA Last administered on 05/16/17 22 :05; Start 05/13/17 at 17:30 Sodium Chloride 1,000 ml @ 100 mls/hr Q10H IV Last administered on 05/16/17 14:02; Start 05/13/17 at 17:32; Stop 05/16/17 at 14:54; Status DC Sodium Chloride (NS Flush) 2 ml UNSCH PRN IV FLUSH FLUSH AFTER USING IV ACCESS ; Start 05/13/17 at 17:45; Stop 05/13/17 at 18:02; Status DC Sodium Chloride (NS Flush) 2 ml BID IV FLUSH ; Start 05/13/17 at 21:00; Stop at 21:00; Status DC Acetaminophen (Tylenol) 650 mg Q4H PRN PO TEMP > 100.4 Last administered on 12:04; Start 05/13/17 at 17:45 Ondansetron HCl (Zofran Inj) 4 mg Q6H PRN IVP NAUSEA OR VOMITING; Start at 17:45 Metoclopramide HCl (Reglan Inj) 5 mg Q6H PRN IV PUSH NAUSEA OR VOMITING; Start 05/13/17 at 17:45 Prochlorperazine (Compazine Supp) 25 mg Q12H PRN RECTAL NAUSEA OR VOMITING; Start 05/13/17 at 17:45 Enoxaparin Sodium (Lovenox Inj) 40 mg Q24H SQ Last administered on 05/16/17 21 :47; Start 05/13/17 at 20:00 Acetaminophen (Tylenol) 650 mg Q6H PRN PO PAIN SCALE 1 TO 2 Last administered on 05/16/17 22:05; Start 05/13/17 at 17:45 Acetaminophen/ Hydrocodone Bitart ([place] 5-325 Mg) 1 tab Q4H PRN PO PAIN SCALE 3 TO 5; Start 05/13/17 at 17:45 Acetaminophen/ Hydrocodone Bitart ([place] 10-325 Mg) 1 tab Q4H PRN PO PAIN SCALE 6 TO 10; Start 05/13/17 at 17:45 Morphine Sulfate (Morphine Inj) 2 mg Q3H PRN IV Pain 3-5; if unable to take PO ; Start 05/13/17 at 17:45 Morphine Sulfate (Morphine Inj) 4 mg Q3H PRN IV Pain 6-10;if unable to take PO ; Start 05/13/17 at 17:45 Naloxone HCl (Narcan Inj) 0.4 mg UNSCH PRN IV SEE LABEL COMMENTS; Start at 17:45 Senna/Docusate Sodium (Chandni-Colace) 1 tab BID PO Last administered on 20:35; Start 05/13/17 at 21:00; Stop 05/15/17 at 09:23; Status DC Magnesium Hydroxide (Milk Of Magnesia Liq) 30 ml Q12H PRN PO MILD - MODERATE CONSTIPATION Last administered on 05/14/17 22:09; Start 05/13/17 at 17:45; Stop 05/15/17 at 09:25; Status DC Sennosides (Senokot) 17.2 mg Q12H PRN PO MODERATE - SEVERE CONSTIPATION; Start 05/13/17 at 17:45 Bisacodyl (Dulcolax Supp) 10 mg DAILY PRN RECTAL SEVERE CONSITIPATION; Start at 17:45 Lactulose (Lactulose Liq) 30 ml DAILY PRN PO SEVERE CONSITIPATION Last administered on 05/15/17 18:57; Start 05/13/17 at 17:45 Sodium Chloride (NS Flush) 2 ml UNSCH PRN IV FLUSH FLUSH AFTER USING IV ACCESS Last administered on 05/17/17 07:21; Start 05/13/17 at 17:45 Sodium Chloride (NS Flush) 2 ml BID IV FLUSH Last administered on 05/16/17 22: 01; Start 05/13/17 at 21:00 Piperacillin Sod/ Tazobactam Sod 100 ml @ 200 mls/hr Q6H IV Last administered on 05/14/17 22:09; Start 05/13/17 at 20:00; Stop 05/14/17 at 23:39; Status DC Azithromycin 500 mg/Sodium Chloride 250 ml @ 250 mls/hr Q24H IV Last administered on 05/16/17 21:55; Start 05/13/17 at 20:00 Pharmacy Profile Note 0 ml @ 0 mls/hr UNSCH OTHER ; Start 05/13/17 at 17:45 Albuterol/ Ipratropium (Duoneb Neb) 1 ampule Q4HR NEB PRN INH SHORTNESS OF BREATH Last administered on 05/16/17 16:47; Start 05/13/17 at 17:45 Methylprednisolone Sodium Succinate (SoluMEDROL INJ) 40 mg Q12H IV ; Start 05/13 at 18:00; Stop 05/14/17 at 10:46; Status DC Guaifenesin (Mucinex Er) 600 mg BID PO Last administered on 05/16/17 21:46; Start 05/13/17 at 21:00 Pantoprazole Sodium (Protonix) 40 mg ONCE ONCE PO Last administered on 18:54; Start 05/13/17 at 18:00; Stop 05/13/17 at 18:12; Status DC Pantoprazole Sodium (Protonix) 40 mg DAILY PO ; Start 05/14/17 at 09:00 Vancomycin HCl 1000 mg/Sodium Chloride 250 ml @ 250 mls/hr ONCE ONCE IV ; Start 05/13/17 at 18:30; Stop 05/13/17 at 19:29; Status DC Vancomycin HCl 750 mg/Sodium Chloride 257.5 ml @ 250 mls/hr Q12H IV Last administered on 05/15/17 05:55; Start 05/14/17 at 05:00; Stop 05/15/17 at 10:20 ; Status DC Miscellaneous Information SPECIFIC LAB TO BE TUTU... ONCE ONCE .XX Last administered on 05/15/17 04:50; Start 05/15/17 at 04:45; Stop 05/15/17 at 04:46 ; Status DC Budesonide/ Formoterol Fumarate (Symbicort 160-4.5 Inh) 2 puff Q12HR INH Last administered on 05/15/17 09:55; Start 05/13/17 at 21:00; Stop 05/15/17 at 12:03 ; Status DC Furosemide (Lasix Inj) 20 mg ONCE ONCE IV PUSH Last administered on 05/14/17 05:25; Start 05/13/17 at 22:30; Stop 05/13/17 at 22:31; Status DC Methylprednisolone Sodium Succinate (SoluMEDROL INJ) 125 mg NOW ONCE IV Last administered on 05/14/17 11:47; Start 05/14/17 at 11:00; Stop 05/14/17 at 11:01 ; Status DC Methylprednisolone Sodium Succinate (SoluMEDROL INJ) 40 mg Q6H IV PUSH ; Start 05/14/17 at 17:00; Stop 05/14/17 at 17:00; Status DC Multi-Ingredient Mouthwash/Gargle (Magic Mouthwash Adult Liq) 10 ml QID SWISH- SWAL Last administered on 05/16/17 21:44; Start 05/14/17 at 13:00 Methylprednisolone Sodium Succinate (SoluMEDROL INJ) 40 mg Q8H IV Last administered on 05/17/17 03:54; Start 05/14/17 at 20:00 Piperacillin Sod/ Tazobactam Sod 100 ml @ 200 mls/hr Q6H IV Last administered on 05/17/17 03:58; Start 05/15/17 at 04:00 Senna/Docusate Sodium (Chandni-Colace) 2 tab BID PO Last administered on 19:48; Start 05/15/17 at 09:15 Bisacodyl (Dulcolax Supp) 10 mg DAILY PRN [place] CONSTIPATION; Start 05/15/17 at 09 :15; Status UNV Magnesium Hydroxide (Milk Of Magnandrey Liq) 30 ml Q6H PRN PO MODERATE - SEVERE CONSTIPATION; Start 05/15/17 at 09:15 Vancomycin HCl 1000 mg/Sodium Chloride 250 ml @ 250 mls/hr Q12H IV Last administered on 05/17/17 05:07; Start 05/15/17 at 17:00 Miscellaneous Information SPECIFIC LAB TO BE TUTU... ONCE ONCE .XX Last administered on 05/17/17 04:50; Start 05/17/17 at 04:45; Stop 05/17/17 at 04:46 ; Status DC Albuterol/ Ipratropium (Duoneb Neb) 1 ampule TID NEB INH Last administered on 05/17/17 08:33; Start 05/15/17 at 14:00 Budesonide/ Formoterol Fumarate (Symbicort 160-4.5 Inh) 1 puff Q12HR INH Last administered on 05/16/17 21:58; Start 05/15/17 at 21:00 Potassium Chloride (KCl) 40 meq NOW ONCE PO Last administered on 05/15/17 15: 47; Start 05/15/17 at 15:30; Stop 05/15/17 at 15:31; Status DC Potassium Chloride (KCl) 40 meq UNSCH X1 ONCE PO Last administered on 19:48; Start 05/15/17 at 19:30; Stop 05/15/17 at 19:31; Status DC Potassium Chloride (KCl) 40 meq ONCE ONCE PO Last administered on 05/16/17 15 :16; Start 05/16/17 at 15:00; Stop 05/16/17 at 15:02; Status DC A/P Problem List: (1) Dental infection ICD Code: K04.7 - Periapical abscess without sinus Status: Acute (2) Pneumonia ICD Code: J18.9 - Pneumonia, unspecified organism Status: Acute (3) Lung cancer, primary, with metastasis from lung to other site ICD Code: C34.90 - Malignant neoplasm of unspecified part of unspecified bronchus or lung Status: Acute (4) Brain mass ICD Code: G93.9 - Disorder of brain, unspecified Status: Acute (5) Brain edema ICD Code: G93.6 - Cerebral edema Status: Acute (6) Lung tumor ICD Code: D49.1 - Neoplasm of unspecified behavior of respiratory system Status: Acute Assessment and Plan Pneumonia. We'll treat with antibiotics as well as Mucinex as well as duo nebs and steroids oxygen incentive spirometry Recent right gum surgery. Now his facial swelling on the right side of her face the antibiotics that I have her on will cover this also. History of tobacco abuse smoking cessation recommended Lung cancer under the care of Kvng Stokes of oncology AT [facility] History of lung cancer with brain metastases and metastases to the bone Has undergone gamma knife to the brain by Dr. Love at [facility] The patient has thrush that has improved in her mouth Deconditioning Will ask physical therapy and occupational therapy to eval and treat Consult pulmonary and consult case management Discussion with family. May be interested in hospice We will ask palliative care consult HYPOKALEMIA WILL REPLACE will replace again Discharged home today follow up with primary follow-up of oncology can be discharged home and follow-up with pulmonary Problem Qualifiers (1) Pneumonia: Ariel Harley DO May 17, 2017 09:09
[2017-05-17] MEDS ORDERED: POTASSIUM CHLORIDE 20 MEQ CONTROLLED RELEASE TAB PO ONE (09:15)
[2017-05-17] MEDS ORDERED: PANT40TA3 PO (09:22)
[2017-05-17] MEDS ORDERED: HYDR-3533 PO (09:22)
[2017-05-17] MEDS ORDERED: NEBULIZER1 MI1 (09:22)
[2017-05-17] MEDS ORDERED: Guaifenesin PO (09:22)
[2017-05-17] MEDS ORDERED: SYMB160A INH (09:22)
[2017-05-17] MEDS ORDERED: NEBUKIT5 (09:22)
[2017-05-17] MEDS ORDERED: MAGICADU2 SWISH-SWAL (09:22)
[2017-05-17] MEDS ORDERED: LACTCHW3 CHEW (09:22)
[2017-05-17] MEDS ORDERED: AUGM875T3 PO (09:22)
[2017-05-17] MEDS ORDERED: PRED10PA PO (09:22)
[2017-05-17] MEDS ORDERED: IPRASOL INH (09:22)
--- NOTE | 2017-05-17 09:24 | HHI.DCPOC ---
Discharge Care Plan Diagnosis: (1) GERD (gastroesophageal reflux disease) (2) Thrush of mouth and esophagus (3) Pneumonia (4) non-small cell lung cancer, with brain, bone, and lymph node metastases (5) chronic neck pain (6) pneumonia on CT scan (7) history of osteoporosis (8) depression (9) history of COPD (10) recent gamma knife procedures (11) Lung tumor (12) Dental infection (13) Lung cancer, primary, with metastasis from lung to other site Your Health Problems Are: Shortness of Breath Goals to Promote Your Health * To prevent worsening of your condition and complications * To maintain your health at the optimal level Directions to Meet Your Goals Take your medications as prescribed Follow your dietary instruction Follow activity as directed Keep your appointments as scheduled Take your immunizations and boosters as scheduled If your symptoms worsen call your PCP, if no PCP go to Urgent Care Center or Emergency Room Smoking is Dangerous to Your Health. Avoid second hand smoke Call the 24-hour hour crisis hotline for domestic abuse at Ariel Harley DO May 17, 2017 09:24
--- NOTE | 2017-05-17 09:26 | HHI.DS ---
Discharge Summary Admission Date May 13, 2017 at 17:17 Discharge Date: May 17, 2017 Admitting Diagnosis pneumonia. Dental infection. History of metastatic lung cancer (1) Dental infection ICD Code: K04.7 - Periapical abscess without sinus Status: Acute (2) Pneumonia ICD Code: J18.9 - Pneumonia, unspecified organism Status: Acute (3) Lung cancer, primary, with metastasis from lung to other site ICD Code: C34.90 - Malignant neoplasm of unspecified part of unspecified bronchus or lung Status: Acute (4) Brain mass ICD Code: G93.9 - Disorder of brain, unspecified Status: Acute (5) Brain edema ICD Code: G93.6 - Cerebral edema Status: Acute (6) Lung tumor ICD Code: D49.1 - Neoplasm of unspecified behavior of respiratory system Status: Acute Procedures NONE Brief History - From Admission 66-year-old female complains of pain and swelling to the right side of face, shortness of breath, bilateral ankle swelling. Patient has history of metastatic lung CA. 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 Patient had infusion of medication yesterday for osteoporosis. Patient does not know the name of that. Patient has been seen by oncologist in the last month for her cancer. Patient had dental procedure done few days ago on the right gum. Patient states that she has increasing pain and swelling of the right side of face since yesterday. Patient also had increasing weakness since yesterday. Patient complaining of shortness of breath this morning. Patient shortness of breath and increased ankle swelling since last night. Patient denies any fever chills. Patient denies any chest pain. Patient denies abdominal pain. Patient denies any nausea vomiting diarrhea. Patient denies any dysuria or frequency. Patient denies any back pain. Was found to have pneumonia. Will be treated with antibiotics will be treated with steroids. Mucinex incentive spirometry as well as fluids and duo nebs CBC/BMP: 05/17/17 0450 05/17/17 0450 Significant Findings Laboratory Tests Test 05/15/17 04:40 05/15/17 12:08 05/16/17 03:33 05/16/17 05:15 Red Blood Count 3.97 MIL/MM3 (4.00-5.30) 3.60 MIL/MM3 (4.00-5.30) Neutrophils (%) (Auto) 88.2 % (16.0-70.0) 89.5 % (16.0-70.0) Lymphocytes (%) (Auto) 4.8 % (9.0-44.0) 5.7 % (9.0-44.0) Lymphocytes # (Auto) 0.4 TH/MM3 (1.0-4.8) 0.5 TH/MM3 (1.0-4.8) Random Glucose 214 MG/DL (74-106) 138 MG/DL (74-106) Total Protein 5.6 GM/DL (6.4-8.2) 5.0 GM/DL (6.4-8.2) Albumin 2.1 GM/DL (3.4-5.0) 2.0 GM/DL (3.4-5.0) Calcium Level 7.4 MG/DL (8.5-10.1) 7.4 MG/DL (8.5-10.1) Phosphorus Level 1.4 MG/DL (2.5-4.9) 1.5 MG/DL (2.5-4.9) Magnesium Level 3.0 MG/DL (1.5-2.5) 2.8 MG/DL (1.5-2.5) Aspartate Amino Transf (AST/SGOT) 11 U/L (15-37) Potassium Level 2.5 MEQ/L (3.5-5.1) 3.3 MEQ/L (3.5-5.1) Estimat Glomerular Filtration Rate 82 ML/MIN (>89) Protein Corrected Calcium 8.2 MG/DL (8.5-10.1) Creatinine 0.40 MG/DL (0.50-1.00) Hemoglobin 10.7 GM/DL (11.6-15.3) Hematocrit 31.3 % (35.0-46.0) Test 05/17/17 04:50 Red Blood Count 3.98 MIL/MM3 (4.00-5.30) Neutrophils (%) (Auto) 90.9 % (16.0-70.0) Lymphocytes (%) (Auto) 4.8 % (9.0-44.0) Lymphocytes # (Auto) 0.4 TH/MM3 (1.0-4.8) Random Glucose 171 MG/DL (74-106) Total Protein 5.5 GM/DL (6.4-8.2) Albumin 2.3 GM/DL (3.4-5.0) Calcium Level 7.0 MG/DL (8.5-10.1) Phosphorus Level 2.1 MG/DL (2.5-4.9) Aspartate Amino Transf (AST/SGOT) 10 U/L (15-37) Potassium Level 3.2 MEQ/L (3.5-5.1) Protein Corrected Calcium 7.8 MG/DL (8.5-10.1) Vancomycin Level Trough 13.0 MCG/ML (5.0-10.0) Imaging Last Impressions CT Angiography 05/13/17 1249 Signed Impressions: Service Date/Time: April 15:04 - CONCLUSION: 1. No evidence of pulmonary embolism. 2. Mild interval increase in size of the known large left upper lobe tumor mass. 3. New focal air consolidative opacity along the lateral left lower lobe which may represent tumor versus post obstructive pneumonia. 4. Small amount of pericardial fluid. 5. No spinal or hilar adenopathy is again noted. 6. New small bilateral pleural effusions right greater than left. Randy Edwards MD Chest X-Ray 05/13/17 1240 Signed Impressions: Service Date/Time: , May 13, 2017 13:07 - CONCLUSION: 1. Unchanged masslike consolidation within the left upper lobe. 2. No consolidation within the peripheral aspects of the left lower lobe. Alverto Orr Jr., MD Maxillofacial CT 05/13/17 0000 Signed Impressions: Service Date/Time: , May 13, 2017 15:01 - CONCLUSION: 1. Streak artifact from multiple dental fillings in the mandible and maxilla. 2. The bony structures otherwise intact with no evidence of metastatic disease. 3. The known metastatic lesion in right parietal lobe is faintly visualized. Randy Edwards MD PE at Discharge GENERAL: This is a cachectic, well-developed patient, in less apparent distress. Not lethargic at all today SKIN: No rashes, ecchymoses or lesions. Cool and dry. HEAD: Atraumatic. Normocephalic. No temporal or scalp tenderness. EYES: Pupils equal round and reactive. Extraocular motions intact. No scleral icterus. No injection or drainage. ENT: Nose without bleeding, purulent drainage or septal hematoma. Throat without erythema, tonsillar hypertrophy or exudate. Uvula midline. Airway patent. Right side of her face is less swollen and tender-- tongue is midline-- thrush seems to have improved NECK: Trachea midline. No JVD or lymphadenopathy. Supple, nontender, no meningeal signs. CARDIOVASCULAR: Regular rate and rhythm without murmurs, gallops, or rubs. S1 and S2 no S3 or S4 no heave or thrill or rub or gallop RESPIRATORY: Less Coarse breath sounds bilaterally. Breath sounds equal bilaterally. Last Scattered rhonchi GASTROINTESTINAL: Abdomen soft, non-tender, nondistended. No hepato-splenomegaly , or palpable masses. No guarding. MUSCULOSKELETAL: Extremities without clubbing, cyanosis, or edema. No joint tenderness, effusion, or edema noted. No calf tenderness. Negative Homans sign bilaterally. NEUROLOGICAL: Awake and alert. Cranial nerves II through XII intact. Motor and sensory grossly within normal limits. Five out of 5 muscle strength in all muscle groups. Normal speech. Insight and judgment are limited to illness Mood and behavior are improved Hospital Course 66-year-old female complains of pain and swelling to the right side of face, shortness of breath, bilateral ankle swelling. Patient has history of metastatic lung CA. 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 Patient had infusion of medication yesterday for osteoporosis. Patient does not know the name of that. Patient has been seen by oncologist in the last month for her cancer. Patient had dental procedure done few days ago on the right gum. Patient states that she has increasing pain and swelling of the right side of face since yesterday. Patient also had increasing weakness since yesterday. Patient complaining of shortness of breath this morning. Patient shortness of breath and increased ankle swelling since last night. Patient denies any fever chills. Patient denies any chest pain. Patient denies abdominal pain. Patient denies any nausea vomiting diarrhea. Patient denies any dysuria or frequency. Patient denies any back pain. Was found to have pneumonia. Will be treated with antibiotics will be treated with steroids. Mucinex incentive spirometry as well as fluids and duo nebs 8-18 discussion with patient and RN daughter and . Patient's primary care physician is Dr. Maria De Jesus Saavedra Her oncologist here is Current oncologist in [place] is Dr. ANN Had refused steroids yesterday. We'll make sure she gets steroids today and is on a scheduled IV treatment wIll consult physical therapy occupational therapy and speech therapy Patient needs swallow eval to make sure she is not aspirating HAS THRUSH 8-19 MUCH more alert today Refill she is breathing better Is much more awake and alert today Needs to have a bowel movement and is constipated Discussed with patient, RN, and family Steroids Being tapered down A.m. labs 8-20 NO GROWTH IN CULTURES SO FAR HOPEFULLY DC TO HOME TOMORROW DW PATIENT AND RN BREATHING BETTER 8-21 patient is feeling better. Wants to go home. Had some diarrhea today. But also took medications due to constipation Wants to go home Primary care physician is Dr. Maria De Jesus Saavedra Patient can be discharged home today. Switch to by mouth antibiotics and discharge DC TO HOME IMPROVED NEED NEBULIZER ANTIBIOTICS, MUCINEX, LACTINEX AND TAPERED STEROID DOSE Pt Condition on Discharge: Stable Discharge Disposition: Discharge Home Discharge Time: > 30 minutes Discharge Instructions DIET: Follow Instructions for: Heart Healthy Diet Speech Therapy-Diet Recommends: Regular Activities you can perform: Regular-No Restrictions Follow up Referrals: PCP Follow-up - 3-5 Days with Maria De Jesus Saavedra M.d. Pulmonology - 2-3 Days with Matheus Abbott MD New Medications: Amoxicillin-Clavulanate (Augmentin) 875-125 Mg Tab 1 TAB PO BID for Infection, #20 TAB 0 Refills Lactobacillus Acidophilus (Lactinex) 1 Chew 1 TAB CHEW TID for Nutritional Supplement, #90 TAB 0 Refills Nebulizer (Nebulizer) 1 Mis Mis EA .ROUTE DIRECTED for Breathing Treatment, #1 0 Refills Nebulizer Kit/Tubing/Mout (Nebulizer Kit/Tubing/Mout) 1 Kit Kit KIT .ROUTE DIRECTED for Breathing Treatment, #1 0 Refills Prednisone (21) 10 mg tab Dose Pack (Prednisone (21) 10 mg tab Dose Pack) 10 Mg Pack 10 MG PO DIRECTED for Inflammation, #1 DSPK 0 Refills Budesonide-Formoterol Inh (Symbicort Inh) 160-4.5 Mcg/Act Aero 1 PUFF INH Q12HR for Shortness of Breath, #1 INHALER Ipratropium-Albuterol Neb (Duoneb) 0.5-2.5 Mg/3 Ml Neb 1 AMPULE INH TID NEB PRN for SHORTNESS OF BREATH, #120 ML Oiimoark-Natmhjefjwgpxdi-Mdssuthqr Liq (Magic Mouthwash Adult Liq) 120 Ml Susp 10 ML SWISH-SWAL QID for THRUSH, #1200 ML Pantoprazole (Pantoprazole) 40 Mg Tab 40 MG PO DAILY for Heartburn Management, #30 TAB [Guaifenesin] () 600 MG TABCR 600 MG PO BID for Cough, #60 Continued Medications: Alprazolam (Xanax) 0.5 Mg Tab 0.5 MG PO HS PRN for SLEEP, TAB 0 Refills Hydrocodone-Acetaminophen (Lortab) 5-325 Mg Tab 1-2 TAB PO Q6H PRN for PAIN, #60 TAB 0 Refills (This prescription has been renewed) Levetiracetam (Keppra) 500 Mg Tab 500 MG PO Q12HR for Prevent seizure, #60 TAB 0 Refills Temazepam (Temazepam) 15 Mg Cap 15 MG PO HS PRN for INSOMNIA, #30 CAP 0 Refills Ariel Harley DO May 17, 2017 09:26
[2017-05-17] MEDS: NYSTAT/DIPHENHY/LIDO MOUTHWASH (Adult) 120ML SWISH-SWAL SCH (09:40)
[2017-05-17] MEDS: levETIRAcetam 500 MG TAB PO SCH (09:40)
[2017-05-17] MEDS: guaiFENesin E.R. 600 MG TAB PO SCH (09:40)
[2017-05-17] MEDS: SODIUM CHLORIDE 0.9% FLUSH 10 ML FLUSH IV FLUSH SCH (09:42)
[2017-05-17] MEDS: DOCUSATE SODIUM 50 MG/SENNA 8.6 MG TAB PO SCH (09:42)
[2017-05-17] MEDS: PANTOPRAZOLE SOD 40 MG DELAYED RELEASE TAB PO SCH (09:48)
[2017-05-18] MEDS ORDERED: PHARMACY ORDERED LAB ONE (04:45)
== END 2017-05-17 11:30 | disposition home or self-care (01) | DRG 190 ==
LOC: NEPE 11:35 → NEDA 17:17 → HOCA 21:05
PROVIDERS: ADMIT Hospitalist; ATTEND Hospitalist
DX: J44.0 Chronic obstructive pulmonary disease with (acute) lower respiratory infection (principal); J18.9 Pneumonia, unspecified organism; G93.6 Cerebral edema; R64 Cachexia; C77.2 Secondary and unspecified malignant neoplasm of intra-abdominal lymph nodes; B37.0 Candidal stomatitis; C79.31 Secondary malignant neoplasm of brain; C34.12 Malignant neoplasm of upper lobe, left bronchus or lung; C79.51 Secondary malignant neoplasm of bone; J98.11 Atelectasis; Z68.1 Body mass index [BMI] 19.9 or less, adult; K04.7 Periapical abscess without sinus; F32.9 Major depressive disorder, single episode, unspecified; G89.29 Other chronic pain; M54.2 Cervicalgia; E87.6 Hypokalemia; F41.9 Anxiety disorder, unspecified; H91.91 Unspecified hearing loss, right ear; K21.9 Gastro-esophageal reflux disease without esophagitis; K59.00 Constipation, unspecified; M81.0 Age-related osteoporosis without current pathological fracture; Z87.891 Personal history of nicotine dependence
CPT/HCPCS: 70487; 71010; 71275; 80053; 80202; 81001; 83036; 83605; 83735; 83880; 84100; 84439; 84443; 85025; 85610; 85730; 87040; 87070; 87205; 93005; 94150; 94640; 94664; 96365; 96375; J0295; J0456; J1650; J1940; J2270; J2405; J2543; J2920; J3370; J7030; J7050; Q9967